=== PATIENT | male | born 1955 | race Caucasian/White ===

== ENCOUNTER 2016-03-18 01:12 | Inpatient (IN) | payer OTHER ==
[~2016-03-18] VITALS: Ht 168.9 cm; Wt 63.6 kg
[~2016-03-18 01:12] MED LIST: ASPI81TA25 PO; LOSA50TA6 PO; NAPR1TAB9 PO
[2016-03-18 01:46] LABS: HEMATOCRIT 40.4 % (42-52); MEAN CELL VOLUME 92.7 fL (80-100); MEAN CORPUSCULAR HEMOGLOBIN 34.4 pg (25-34); MEAN CORPUSCULAR HGB CONC 37.1 g/dl (32-36); MEAN PLATELET VOLUME 8.8 fL (7.4-10.4); PLATELET COUNT 203 K/uL (130-400); RED BLOOD COUNT 4.36 M/uL (4.7-6.1)
[2016-03-18 01:46] LABS: MANUAL MICROSCOPIC REQUIRED? NO; REVIEW REQ? NO; URINE APPEARANCE CLEAR (CLEAR); URINE BILIRUBIN NEG (NEG); URINE COLOR YELLOW; URINE NITRITE NEG (NEG); URINE PH 5.5 (4.5-7.5); UROBILINOGEN NEG (NEG)
[2016-03-18] MEDS ORDERED: HYDR12.55 PO (01:49)
[2016-03-18] MEDS ORDERED: PYRI100T4 PO (01:50)
--- NOTE | 2016-03-18 01:50 | EMERGENCY ROOM VISIT NOTE ---
History Report prepared by Elle: Huy Morales Under the Supervision of: Dr. Arlene Griggs D.O. First contact with patient: 01:17 Chief Complaint: MENTAL HEALTH EVALUATION Stated Complaint: 302 History of Present Illness The patient is a 60 year old male who presents to the Emergency Room with for an acute mental health evaluation over statements that he made earlier tonight. The patient has had 7-8 beers today. The patient's is concerned that he is going to hurt himself. The patient's intended to drive to [place] for a . The patient does not want her to go because he is concerned for her. He admits that it is causing him stress. The patient told his that he might not be there when she returns. He poured his bottle of Prozac into his hand and said that would be enough. He also said that he would be taking the Prozac for breakfast. The patient was brought into the ED by the police department. The patient admits that he drinks every night but does not acknowledge that he is an alcoholic. His believes that he is an alcoholic. The patient denies ever attempting suicide. The patient was admitted to [place] [facility] for mental health in June. His says that he has been more manipulative since he was discharged. The patient has never been to rehab. The patient does not drive intoxicated. He is a retired forester. The patient denies a history of diabetes or other health problems. Source of History: patient, spouse/significant other Onset: tonight Position: other (psyche) Quality: other (mental health evaluation) Timing: other (acute) Modifying Factors (Worsening): other ( intending to go to NH) Note: Patient denies suicidal ideations. Review of Systems See HPI for pertinent positives & negatives. A total of 10 systems reviewed and were otherwise negative. Past Medical & Surgical Medical Problems: (1) Chronic shoulder pain (2) Dizziness (3) Dizziness (4) Fall (5) Head injury (6) Hypertension (7) Laceration of forehead (8) Near syncope Family History Diabetes mellitus Social History Smoking Status: Current Every Day Smoker Alcohol Use: heavy Drug Use: none Marital Status: Housing Status: lives with significant other Occupation Status: disabled Current/Historical Medications Scheduled Aspirin (Aspir-Low), 81 MG PO DAILY Hydrochlorothiazide (Hydrochlorothiazide), 12.5 MG PO DAILY Losartan Potassium (Cozaar), 50 MG PO DAILY Naproxen (Aleve), 220 MG PO DAILY Pyridoxine (Vitamin B6), 100 MG PO DAILY Allergies Coded Allergies: No Known Allergies (Unverified , 07/04/15) Physical Exam Vital Signs Date Time Temp Pulse Resp B/P Pulse Ox O2 Delivery O2 Flow Rate FiO2 03/18/16 04:25 84 20 119/60 95 Room Air 03/18/16 02:26 89 16 152/90 97 Room Air 03/18/16 01:15 36.8 95 20 136/100 99 Room Air Physical Exam General: Pleasant, smells of alcohol. HEENT: Head - normocephalic and atraumatic Pupils are equal, round, and reactive to light. Extraocular eye muscles are intact, and sclera are anicteric. Nose - moist nasal mucosa without discharge. Mouth - moist buccal mucosa. Oropharynx is nonerythematous and there is no tonsillar exudate or edema noted. Neck: Supple; no JVD, nuchal rigidity, cervical lymphadenopathy, or auscultated bruits. Heart: Regular rate and rhythm. There is a normal S1 and S2 with no murmurs, clicks, or gallops appreciated. Lungs: Clear to auscultation bilaterally with no wheezes, rales, or rhonchi. Abdomen: Soft, completely nontender, nondistended, with good bowel sounds. There are no palpable pulsatile masses or hepatosplenomegaly. There is no guarding, rigidity, or rebound noted. Extremities: No evidence of cyanosis, clubbing, or edema. There are easily palpable peripheral pulses. Skin: warm and dry with good turgor and no rashes. Psych: Admits to making suicidal threats. Denied any homicidal ideation. Admits to depression. Medical Decision & Procedures Laboratory Results 03/18/16 01:30 03/18/16 01:30 Test 03/18/16 01:27 03/18/16 01:30 03/18/16 01:42 Urine Color YELLOW Urine Appearance CLEAR (CLEAR) Urine pH 5.5 (4.5-7.5) Urine Specific [place] 1.000 (1.000-1.030) Urine Protein NEG (NEG) Urine Glucose (UA) NEG (NEG) Urine Ketones NEG (NEG) Urine Occult Blood NEG (NEG) Urine Nitrite NEG (NEG) Urine Bilirubin NEG (NEG) Urine Urobilinogen NEG (NEG) Urine Leukocyte Esterase NEG (NEG) Red Blood Count 4.36 M/uL (4.7-6.1) Mean Corpuscular Volume 92.7 fL (80-100) Mean Corpuscular Hemoglobin 34.4 pg (25-34) Mean Corpuscular Hemoglobin Concent 37.1 g/dl (32-36) RDW Standard Deviation 49.7 fL (36.4-46.3) RDW Coefficient of Variation 14.6 % (11.5-14.5) Mean Platelet Volume 8.8 fL (7.4-10.4) Anion Gap 13.0 mmol/L (3-11) Est Creatinine Clear Calc Drug Dose 80.5 ml/min Estimated GFR () 108.2 Estimated GFR (Non- 93.4 BUN/Creatinine Ratio 13.8 (10-20) Calcium Level 8.2 mg/dl (8.5-10.1) Total Bilirubin 0.4 mg/dl (0.2-1) Direct Bilirubin 0.1 mg/dl (0-0.2) Aspartate Amino Transf (AST/SGOT) 26 U/L (15-37) Alanine Aminotransferase (ALT/SGPT) 20 U/L (12-78) Alkaline Phosphatase 51 U/L (45-117) Total Protein 7.5 gm/dl (6.4-8.2) Albumin 3.9 gm/dl (3.4-5.0) Thyroid Stimulating Hormone (TSH) 1.280 uIu/ml (0.300-4.500) Salicylates Level 6.2 mg/dl (2.8-20) Acetaminophen Level < 2 ug/ml (10-30) Ethyl Alcohol mg/dL 220.0 mg/dl (0-3) Urine Opiates Screen NEG (NEG) Urine Methadone, Qualitative NEG (NEG) Urine Barbiturates NEG (NEG) Urine Phencyclidine (PCP) Level NEG (NEG) Ur Amphetamine/Methamphetamine NEG (NEG) MDMA (Ecstasy) Screen NEG (NEG) Urine Benzodiazepines Screen NEG (NEG) Urine Cocaine Metabolite NEG (NEG) Urine Marijuana (THC) POS (NEG) Laboratory results per my review. ED Course 0125: Past medical records reviewed. The patient was evaluated in room A12b. A complete history and physical exam was performed. I discussed the case with the patient's who was petitioning a 302. Laboratory studies were drawn as above. The patient was moved to A8. 0350: The patient is sleeping at this time. 0510: The patient was sound asleep. 0630: The patient will be signed out to Dr. Akins at shift change. Medical Decision The patient is a 60 year old male who presents to the ED for a mental health evaluation. Differential diagnosis includes alcohol intoxication, suicidal ideation, suicidal gesture, mood disorder. Laboratory interpretation: Alcohol 220, urinalysis is clean, TSH normal, glucose 81, LFTs and renal function normal, no leukocytosis, stable H&H. Urine tox screen was positive for marijuana, salicylates 6.2, acetaminophen < 2. This is a 60-year-old male patient who presents to the emergency department after making suicidal threats. The patient is quite concerned for his safety as he made threats and gestures that he would kill himself by overdosing. He is currently intoxicated. He does admit to being an alcoholic and drinks every night. We are waiting for the patient to sober up so that he can be evaluated by psychiatry. He has never been to a rehabilitation facility for alcoholism. He declines wanting to do so at this time. Impression Primary Impression: Suicidal ideation Additional Impression: Alcohol intoxication Scribe Attestation The scribe's documentation has been prepared under my direction and personally reviewed by me in its entirety. I confirm that the note above accurately reflects all work, treatment, procedures, and medical decision making performed by me. Departure Information Dispostion Still a Patient Referrals No Doctor, Assigned (PCP) Patient Instructions A Signature Page, My [facility]
[2016-03-18 02:05] LABS: BUN/CREATININE RATIO 13.8 (10-20); CALCIUM 8.2 mg/dl (8.5-10.1); CREATININE 0.88 mg/dl (0.60-1.40); POTASSIUM 3.5 mmol/L (3.5-5.1)
[2016-03-18 02:16] LABS: THYROID STIMULATING HORMONE 1.28 uIu/ml (0.300-4.500)
[2016-03-18 02:34] LABS: ACETAMINOPHEN < 2 ug/ml (10-30)
[2016-03-18 02:51] LABS: BENZODIAZEPINE, URINE NEG (NEG); COCAINE,URINE NEG (NEG); PHENCYCLIDINE, URINE NEG (NEG)
[2016-03-18 09:24] VITALS: O2SAT 98
--- NOTE | 2016-03-18 09:42 | EMERGENCY ROOM VISIT NOTE ---
ED Visit Note 60-year-old male was signed off to me at change of shift from Dr. Griggs awaiting admission for mental health. The patient was evaluated by mental health and accepted for admission on 3 S.
[2016-03-18] MEDS ORDERED: SODIUM CHLORIDE 0.65% NA SOLN 45 ML (OCEAN) PRN (10:00)
[2016-03-18] MEDS ORDERED: hydrOXYzine HCL 25 MG TAB PO PRN ×2 (10:00)
[2016-03-18] MEDS ORDERED: ALUMINUM/MAGNESIUM SUSP 30 ML UDC PO PRN (10:00)
[2016-03-18] MEDS ORDERED: MAGNESIUM HYDROXIDE SUSP 30 ML UDC PO PRN (10:00)
[2016-03-18] MEDS ORDERED: BISMUTH SUBSALICYLATE PER ML OMNICELL CHARGE PO PRN (10:00)
[2016-03-18] MEDS ORDERED: ACETAMINOPHEN 325 MG TAB PO PRN (10:00)
[2016-03-18 10:06] VITALS: BP 146/88; PULSE 90; TEMP 36.8; Ht 168.9 cm; Wt 63.6 kg
[2016-03-18] MEDS ORDERED: HYDROCHLOROTHIAZIDE 25 MG TAB PO ONE (13:30)
[2016-03-18] MEDS ORDERED: LORAZEPAM 1 MG TAB PO PRN (13:30)
[2016-03-18] MEDS ORDERED: LOSARTAN POTASSIUM 50 MG TAB PO ONE (13:30)
[2016-03-18] MEDS: THIAMINE HCL 100 MG TAB PO SCH (14:21)
--- NOTE | 2016-03-18 14:48 | HISTORY & PHYSICAL EXAMINATION ---
DATE OF ADMISSION: 03/18/2016 IDENTIFYING INFORMATION: This is a 60-year-old gentleman with a history of psychiatric admission last June for depression with suicidal ideation who presents through the [facility] ER where he was assessed by Dr. Akins and Dr. Griggs following suicidal threats to . History obtained from patient on interview and medical records available in chart. CHIEF COMPLAINT: "Sometimes I just feel like I do not want to be around anymore. It is like I lose the will to live". HISTORY OF PRESENT ILLNESS: Per ER note from last evening, the patient presented to the ER following statements that he made to earlier in the day. expressed concern that he was going to hurt himself. Reportedly, she had intended to drive to [place] for a and the patient did not want her to go and he told his that he might not be there when he returns and said something to the effect that if he took his Prozac in an overdose that would be enough to kill him. He said that he would be taking Prozac for breakfast provocatively. He was brought into the ED by police. He admitted to drinking every night but did not identify himself as an alcoholic. reportedly believes he is an alcoholic. He denies ever making a suicide attempt in the past. Noted that he had been to [facility] last June for similar circumstances. reported that he seemed more manipulative in his behaviors since discharge from there, never been to rehab. On interview this morning, the patient reports that his primary stressor is his and he hoarding behavior. He sounds to be quite stressed by their home situation, stating that she has things piled everywhere including 2 large storage units that she does not perceive that he has a problem. He states that they were encouraged to participate in couples counseling following his mental health admission last June but it was of little benefit. He believes he needs to get out of that relationship to feel better. 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 He admits to losing his temper and yelling at the workmen from [employer] who eventually refused to return to his home but otherwise denies problematic anger, reactivity, or impulsive behaviors. He reports he last felt well about 2 years ago and believes that his mood has been steadily declining since. He describes sleep latency secondary to worry and stress and believes that he drinks primarily to fall asleep and also to get out of the house and away from his . He describes low interest and low ability to enjoy things that were historically enjoyable to him. His mood has been chronically low with episodic acute lows including some hopelessness and loss of desire to live. "Sometimes I feel like if I would just go to sleep and not wake up, it would be okay with me." He does report that this typically is fleeting and he will feel a little better by the next day. He denies that he has entertained specific suicidal thoughts and denies a specific plan to harm himself and reports that his provocative statements regarding the Prozac at time of presentation wee most likely in an effort to get his 's attention and manipulate her plans and behavior. He denies that he ever intended to take the Prozac and overdose. He denies self-injurious behaviors. He denies homicidal ideation. He denies crying spells. His appetite has been low and he reports approximately 5 pound weight loss in last 6 months. He denies symptoms consistent with hypomania or tony. He denies psychosis. He denies free floating anxiety or excessive worry at baseline apart from what he experiences related to situational stressors previously noted. He denies panic attacks. He denies progressive memory problems. He does report drinking 8-12 beers daily, but does not perceive that this is a problem and states that he cut down from 18 beers daily at some point in the past and feels happy about this. He states that he is not interested in substance abuse treatment and does not perceive that he has a problem. Notably, he reports dysphagia when taking Prozac last spring which seemed to improve within several days of discontinuing the Prozac; however, he is interested in retrying an alternative antidepressant. PAST PSYCHIATRIC HISTORY: The patient has 1 prior psychiatric hospitalization in June 2015 for about 2-1/2 days that appears to have been a voluntary admission at [facility]. He was started on Prozac which he took for a few months but felt that gave him swallowing problems such as swallowing meat and upper GI and esophageal dilatation did not improve that but the symptoms did improve a few days after discontinuing the Prozac. He denies any other psychotropic treatment history including benzodiazepines, sleep aids, anxiolytics, antipsychotics. He participated in psychotherapy x3 in [place] at the [email or web address] but did not feel like he was any benefit and discontinued. He denies a history of suicidal attempts or self-injurious behaviors in the past 6 months or otherwise. He denies a history of violence to anyone else in the past 6 months or otherwise. PAST MEDICAL HISTORY: Dr. Caro is his PCP. He describes a history of shoulder injury status post fall approximately 18 years ago to the left shoulder with displacement of clavicle, multiple subsequent surgeries on left shoulder including rotator cuff repair resulting in chronic left shoulder pain, carotid stenosis, and hypertension also reported. He denies a personal history of seizure, stroke, head injury, central nervous system infection, hyperlipidemia, obesity, diabetes, or cardiovascular disease apart from the carotid artery stenosis. CURRENT MEDICATIONS: Aspirin 81 mg daily, hydrochlorothiazide 12.5 mg daily, losartan 50 mg daily, naproxen 220 mg daily, Vitamin B6 100 mg daily. ALLERGIES: No known drug allergies. SUBSTANCE ABUSE HISTORY: The patient reports longstanding smoking history. He used to smoke 1-2 packs of cigarettes per day but quit that and began smoking about 1 pack per day of mini cigars about 8 months ago. He does not drink caffeinated beverages. He describes long history of alcohol use, drinking 8-12 beers on average longstanding. He denies a history of withdrawal. No pertinent abstinence in recent history. He denies associated legal or social difficulties. 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 He denies feeling guilty. He does not perceive that his alcohol use is a problem and is disinterested in any substance abuse treatment presently. He refutes need to further reduce his alcohol use. SOCIAL HISTORY: The patient is from [place], [place]. He was the fourth of 6 children. He felt denied privileges as a child secondary to family, financial strain but otherwise had good relationships with his parents. 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 Denies history. He does have a history of arrest in 1991 for DUI, which he initially denied when doing alcohol use history. Also, reports history of arrest for small marijuana possession. He has been 4 times, all ending in divorce apart from his most recent marriage of 4.5 years. First marriage lasted about 20 years, second 10 years, third less than 1 year. He has 2 children and reports good relationship with both son and daughter who live locally. He currently lives in a private home on [place], [place] with his . Denies amish affiliation. Denies psychological trauma history or abuse history. FAMILY HISTORY: Diffusely negative per patient report. He denies any awareness of current medical problems in his family including obesity, hypertension, diabetes, dyslipidemia, seizure or cardiovascular disease. He denies a mental health family history or family history of suicide. He does report that some people drink in his family, but denies that anybody has had trouble with alcoholism or needed to go to rehabilitation. REVIEW OF SYSTEMS: Notable for sleep latency and weight loss. Otherwise, 10-point review of systems negative except as per HPI apart from chronic left shoulder pain. PHYSICAL EXAMINATION: VITAL SIGNS: Temperature 36.8, pulse 90, blood pressure 146/88, respirations 18. Physical exam reviewed from ER 03/18/2016 assessment and felt appropriate for admission to the behavioral health unit. LABORATORIES AND STUDIES: CBC today showed normal WBC, RBCs a little low at 4.36, hemoglobin normal at 15, hematocrit slightly low at 40.4, platelets 203 and normal. Metabolic panel notable for sodium a little low at 130, potassium okay at 3.5, BUN 12, creatinine 0.88, EGFR within normal limits. Calcium was a little low at 8.2. AST normal at 26, ALT 20, alkaline phosphatase 51, albumin normal at 3.9. TSH normal at 1.28. I see a normal vitamin B12 level from 2015 of 559 in his record. Toxicology panel on admission positive for marijuana. He had a blood alcohol level of 220 at 0130 this morning. Urinalysis was negative. MENTAL STATUS EXAMINATION: The patient is a very casually groomed gentleman with a long blas scraggly laughlin and long blas hair pulled back. He is wearing a hospital gown as a shirt and jeans. Makes good eye contact. Motor activity appears slightly excessive frequently repositioning himself in the chair and demonstrates a very mild postural tremor in upper extremities outstretched. His speech is slightly over productive, but not necessarily pressured, adequately articulated. Use of language is appropriate for level of education. Thought process is slightly circumstantial, but he is redirectable to topic. He is logical in his responses. Thought content notable for thoughts of not wanting to be alive episodically and some suicidal fantasy but he denies that he has active suicidal intention and has no specific plan to harm himself; however, he did indicate to his this morning that he could take his Prozac in a self-harm attempt. No evidence of response to internal stimuli. Gait is stable without assistance. He describes his mood as depressed and stressed and his affect appears mildly to moderately irritable, somewhat anxious, and dysphoric. Insight appears fair. Judgment and impulse control presently limited. Memory appears grossly intact in all spheres. Orientation grossly intact conversationally. RISK ASSESSMENT: This patient does report that he has access to guns at home. He has a history of depression and suicidal ideation. He is white. He has a history of divorce. He is abusing alcohol. He is expressing suicidal ideation recently. Protectively, he is willing to pursue care and willing to comply with medications. Strengths include optimism about response to treatment and goal oriented. Needs include provision for safety, pharmacologic intervention, and insight facilitation. ASSESSMENT: A 60-year-old gentleman who sounds to have a long history of alcohol abuse with worsening mood symptoms over the course of the past 2 years; primary stressor discord between he and with his particular complaint of her hoarding behavior admixed with financial strain. In recent history it sounds that his coping abilities have been overwhelmed to the point of passive wish with some suicidal fantasy and threats. While the patient denies active suicidal ideation or intention at the time of his presentation, he does appear to have been behaviorally disinhibited and is in a high risk group regarding substance abuse, history of depression, age, gender, race, limited supports. He would benefit from a period of monitoring, pharmacologic intervention, counseling, and support. DIAGNOSIS: Major depressive disorder, recurrent, severe, without psychosis, provisional; rule out substance induced mood disorder; alcohol use disorder. PLAN: The patient will be admitted on a voluntary status. He will be maintained on suicide checks. He will be encouraged to participate in unit programming. We will facilitate aftercare with therapist and mental health practitioner as appropriate prior to discharge. We will monitor for alcohol withdrawal and treat with fatuma protocol pending need. Discussed pharmacologic interventions for depression, insomnia, anxiety. Will start Remeron 30 mg p.o. at bedtime tonight and monitor. Will continue home medications for hypertension and pain control. Recommended substance abuse treatment but so far the patient declining for alcohol use disorder. Will work to secure guns in home prior to discharge. [id number] MTDD
[2016-03-18] MEDS: MIRTAZAPINE TAB 15 MG TAB PO SCH (21:06)
[2016-03-19 06:58] VITALS: BP_SYST 130; BP_SYST 137; BP_DIAS 82; BP_DIAS 87; PULSE 81; PULSE 82; TEMP 36.5
[2016-03-19 07:24] LABS: BUN/CREATININE RATIO 22.7 (10-20); CREATININE 0.74 mg/dl (0.60-1.40); POTASSIUM 3.6 mmol/L (3.5-5.1)
[2016-03-19] MEDS ORDERED: LOSARTAN POTASSIUM 50 MG TAB PO SCH (09:00)
[2016-03-19] MEDS: ASPIRIN 81 MG ECTAB PO SCH (09:16)
[2016-03-19] MEDS: NAPROXEN 250 MG TAB PO SCH (09:17)
[2016-03-19] MEDS: HYDROCHLOROTHIAZIDE 25 MG TAB PO SCH (09:17)
[2016-03-19] MEDS: PYRIDOXINE HCL 50 MG TAB PO SCH (09:17)
[2016-03-19] MEDS: THIAMINE HCL 100 MG TAB PO SCH (09:17)
[2016-03-19 09:22] VITALS: BP 159/107; PULSE 96; TEMP 36.9
[2016-03-19 12:23] VITALS: BP 199/112; PULSE 65; TEMP 36.8
[2016-03-19] MEDS ORDERED: CHLORDIAZEPOXIDE 25 MG CAP PO ONE (12:45)
[2016-03-19 13:37] VITALS: BP 174/94; PULSE 76
[2016-03-19] MEDS ORDERED: LOSARTAN POTASSIUM 50 MG TAB PO ONE (14:00)
--- NOTE | 2016-03-19 15:40 | Psychiatric Progress Notes ---
Progress Note Date of Service Mar 19, 2016. Chief Complaint "This is about the best I've felt in a long time". Subjective Patient was seen & assessed interval progress reviewed with Treatment Team. Pt is participating in some groups and compliant with medications. Received first dose of remeron last night. Scored 1/0/3 on AWSS assessments and not appearing in active withdrawal at time of initial assessment. However, following face to face assessment, I was alter informed of significant BP elevation and ordered Librium 50mg x1 and increased antihypertensive. Repeat BP reduced and being checked qid. On interview, pt reports feeling very well today. Describes dramatic benefit on remeron for sleep. Best night's sleep in a long time. Denies SE this am. Reports significant improvement in mood and now reporting a good mood and hopefulness that he can make relationship work. Admits statement about pills was a manipulation in effort to prevent from traveling. Denies SI or PDW presently. Reviewed need to reduce etoh use. He now agrees that he should make efforts to do so. He denies feelign anxious, shaky, or hallucinations. Review of Systems Constitutional: No sweats Cardiovascular: No chest pain Neurologic: + problem reported (denies confusion, tremor) Psychiatric: No insomnia Sleep Information Total Hours of Sleep: 6.00 Meal Information Percent of Breakfast Consumed: 100 Percent of Lunch Consumed: 100 Percent of Dinner Consumed: 75 Mental Status Exam During interview pt is: alert and oriented, cooperative Appearance: appropriately dressed Eye contact is: good Motor behavior is: steady gait & station, other (only a very mild perphipheral postural tremor is noted) Speech: normal in rate, rhythm & volume Affect: mood congruent, euthymic Mood is: other (good) Thought process: goal directed Thought content: reality based without delusions Suicidal thought are: denied Homicidal thoughts are: denied Hallucinations: denies auditory, denies visual Cognition: memory grossly intact Insight: other (improving) Judgement: limited Impression ASSESSMENT: A 60-year-old gentleman who sounds to have a long history of alcohol abuse with worsening mood symptoms over the course of the past 2 years primary stressor discord between he and with his particular complaint of her hoarding behavior admixed with financial strain. In recent history it sounds that his coping abilities have been overwhelmed to the point of passive wish with some suicidal fantasy and threats. While the patient denies active suicidal ideation or intention at the time of his presentation, he does appear to have been behaviorally disinhibited and is in a high risk group regarding substance abuse, history of depression, age, gender, race, limited supports. He would benefit from a period of monitoring, pharmacologic intervention, counseling, and support. DIAGNOSIS: Major depressive disorder, recurrent, severe, without psychosis, provisional; rule out substance induced mood disorder; alcohol use disorder. Plan (1) Depression 03/18: - The patient will be admitted on a voluntary status. He will be maintained on suicide checks. He will be encouraged to participate in unit programming. We will facilitate aftercare with therapist and mental health practitioner as appropriate prior to discharge. Discussed pharmacologic interventions for depression, insomnia, anxiety. Will start Remeron 30 mg p.o. at bedtime tonight and monitor. Will continue home medications for hypertension and pain control. 03/19 - SI resolved. tolerating remeron well with improved sleep. - needs aftercare (2) Alcohol abuse 03/18 - We will monitor for alcohol withdrawal w/ sx triggered AWSS 03/19 - hypertensive today, likely 2/2 etoh w/d (was not triggering AWSS ativan prn.) given librium 50mg now dose. will write for 25mg bid to be d/c'd prior to discharge. - remains resistant to any formalized sub abuse tx (3) Hypertension 03/18 - continue home meds 03/19 - increase losartan to 50mg bid tomorrow with now dose of 50mg Discharge / Aftercare Planning Psychiatrist: Name: none Manager Social Work: Name: none Visit Code E&M Code: 07402 Data Vital Signs Last 24 Hrs: Date Time Temp Pulse Resp B/P Pulse Ox O2 Delivery O2 Flow Rate FiO2 03/19/16 13:37 76 174/94 03/19/16 12:23 36.8 65 18 199/112 03/19/16 09:22 36.9 96 16 159/107 03/19/16 06:58 36.5 82 16 130/82 81 137/87 Meds Administered Last 24 Hrs: Meds Administered (Past 24Hrs) Medications (Trade) Dose Ordered Sig/Lida Route Start Time Stop Time Status Last Admin Dose Admin Aspirin (Ecotrin Tab) 81 mg DAILY PO 03/19/16 09:00 04/18/16 08:59 03/19/16 09:16 81 MG Losartan Potassium (coZAAR TAB) 50 mg DAILY PO 03/19/16 09:00 03/20/16 08:59 03/19/16 09:16 50 MG Pyridoxine HCl (Vitamin B-6 Tab) 100 mg DAILY PO 03/19/16 09:00 04/18/16 08:59 03/19/16 09:17 100 MG Hydrochlorothiazide (Hydrochlorothiazide Tab) 12.5 mg DAILY PO 03/19/16 09:00 04/18/16 08:59 03/19/16 09:17 12.5 MG Naproxen (Naprosyn Tab) 250 mg DAILY PO 03/19/16 09:00 04/18/16 08:59 03/19/16 09:17 250 MG Losartan Potassium (coZAAR TAB) 50 mg NOW ONCE PO 03/18/16 13:30 03/18/16 13:31 DC 03/18/16 14:22 50 MG Hydrochlorothiazide (Hydrochlorothiazide Tab) 12.5 mg NOW ONCE PO 03/18/16 13:30 03/18/16 13:31 DC 03/18/16 14:23 12.5 MG Thiamine HCl (Vitamin B-1 Tab) 100 mg QAM PO 03/18/16 13:29 04/17/16 13:28 03/19/16 09:17 100 MG Mirtazapine (Remeron Tab) 30 mg HS PO 03/18/16 22:00 04/17/16 21:59 03/18/16 21:06 30 MG Chlordiazepoxide (Librium Cap) 50 mg NOW ONCE PO 03/19/16 12:45 03/19/16 12:46 DC 03/19/16 12:42 50 MG Losartan Potassium (coZAAR TAB) 50 mg NOW ONCE PO 03/19/16 14:00 03/19/16 14:01 DC 03/19/16 13:38 50 MG Lab Results Last 24 Hrs: Last 24 Hours Test 03/19/16 06:10 Sodium Level 141 mmol/L Potassium Level 3.6 mmol/L Chloride Level 106 mmol/L Carbon Dioxide Level 26 mmol/L Anion Gap 9.0 mmol/L Blood Urea Nitrogen 17 mg/dl Creatinine 0.74 mg/dl Est Creatinine Clear Calc Drug Dose 95.5 ml/min Estimated GFR () 116.2 Estimated GFR (Non- 100.3 BUN/Creatinine Ratio 22.7 Random Glucose 81 mg/dl Calcium Level 9.0 mg/dl
[2016-03-19] MEDS: CHLORDIAZEPOXIDE 25 MG CAP PO SCH (21:58)
[2016-03-19] MEDS: MIRTAZAPINE TAB 15 MG TAB PO SCH (21:59)
[2016-03-20 07:00] VITALS: BP_SYST 119; BP_SYST 128; BP_DIAS 73; BP_DIAS 89; PULSE 71; PULSE 81; TEMP 36.6
[2016-03-20] MEDS: LOSARTAN POTASSIUM 50 MG TAB PO SCH ×2 (08:40→21:20)
[2016-03-20 08:41] VITALS: BP 128/77; PULSE 67
[2016-03-20] MEDS: ASPIRIN 81 MG ECTAB PO SCH (08:41)
[2016-03-20] MEDS: HYDROCHLOROTHIAZIDE 25 MG TAB PO SCH (08:42)
[2016-03-20] MEDS: CHLORDIAZEPOXIDE 25 MG CAP PO SCH (08:42)
[2016-03-20] MEDS: NAPROXEN 250 MG TAB PO SCH (08:47)
[2016-03-20] MEDS: PYRIDOXINE HCL 50 MG TAB PO SCH (08:48)
[2016-03-20] MEDS: THIAMINE HCL 100 MG TAB PO SCH (08:48)
--- NOTE | 2016-03-20 12:19 | Psychiatric Progress Notes ---
Progress Note Date of Service Mar 20, 2016. Interval History 60 y/o MWM from [place] who has a history of depression and alcoholism and presented after making suicidal statements to his , who completed a 302 petition, although he signed in voluntarily. He has been started on Remeron, and is denying SI here, saying his misunderstood him. Chief Complaint "Good, just didn't feel like I had enough sleep last night". Subjective Patient was seen & assessed interval progress reviewed with Treatment Team. Staff report he has had high BP, and is getting scheduled Librium for alcohol withdrawal, but has not scored high enough on the AWSS protocol to get prn Ativan. He was awoken from sleep around 11:00am, saying he meant to lie down for 5 minutes but instead fell asleep. He minimizes the events that led to admission, saying his is to blame, as she was going to drive to [place] and he didn't think that was safe as it is winter and the weather might get bad. He says he told her she was stressing him out and he should take "1 or 2" Prozac to help him with the stress, and that she misunderstood it and thought he was threatening to overdose. He denies that he was suicidal or that he's ever been suicidal, then says he was suicidal when he was [place] [facility] [place]. He says he never followed up after that admission, and that he was referred for therapy but didn't think it worked because he thought the therapist was "supposed to do something about my 's hoarding, that's what it was for." He says that his only problem is his , that her hoarding stresses him out, and because of that he needs to go out drinking with his friends every night, "I need my downtime." He drinks up to 15 beers a night and does not think this is a problem, saying he's been doing it for 10 years and he' s fine. He says "that's my lifestyle, that's how I socialize," and is not interested in changing or cutting back. He admits to some stress due to " friends committing suicide in the last 6 months," but says his primary concern is his , and is hoping to address this in his meeting with her today. Sleep Information Total Hours of Sleep: 6.50 Meal Information Percent of Breakfast Consumed: 100 Percent of Lunch Consumed: 100 Percent of Dinner Consumed: 100 Mental Status Exam During interview pt is: alert and oriented, cooperative Appearance: appropriately dressed, disheveled (Appears older than stated age, malodorous, unkempt, long blas hair in ponytail and long laughlin) Eye contact is: good Motor behavior is: no abnormal motor movements Speech: normal in rate, rhythm & volume Affect: irritable Mood is: other ("good") Thought process: goal directed Thought content: reality based without delusions Suicidal thought are: denied Homicidal thoughts are: denied Hallucinations: denies auditory, denies visual Cognition: memory grossly intact Insight: other Judgement: limited Medication Trials (1) Past Psych Meds Prozac - took for a few months, swallowing problems Last Edited By: Alicia Leon on Mar 20, 2016 12:11 Impression ASSESSMENT: A 60-year-old gentleman with a long history of alcohol abuse and worsening mood symptoms over the course of the past 2 years primary stressor discord between he and with his particular complaint of her hoarding behavior and financial strain. In recent history it sounds that his coping abilities have been overwhelmed to the point of passive wish with some suicidal fantasy and threats. While the patient denies active suicidal ideation or intention at the time of his presentation, he does appear to have been behaviorally disinhibited and is in a high risk group regarding substance abuse, history of depression, age, gender, race, limited supports, poor insight. He would benefit from a period of monitoring, pharmacologic intervention, counseling, and support. DIAGNOSIS: Major depressive disorder, recurrent, severe, without psychosis, provisional Rule out substance induced mood disorder Alcohol use disorder Alcohol withdrawal Plan (1) Depression 03/18: - The patient will be admitted on a voluntary status. He will be maintained on suicide checks. He will be encouraged to participate in unit programming. We will facilitate aftercare with therapist and mental health practitioner as appropriate prior to discharge. Discussed pharmacologic interventions for depression, insomnia, anxiety. Will start Remeron 30 mg p.o. at bedtime tonight and monitor. Will continue home medications for hypertension and pain control. 03/19 - SI resolved. tolerating remeron well with improved sleep. - needs aftercare 03/20 - consistently denying SI here, saying misunderstood his statements about taking pills - Family meeting with today - Work on safety plan and review with (2) Alcohol abuse 03/18 - We will monitor for alcohol withdrawal w/ sx triggered AWSS 03/19 - hypertensive today, likely 2/2 etoh w/d (was not triggering AWSS ativan prn.) given librium 50mg now dose. will write for 25mg bid to be d/c'd prior to discharge. - remains resistant to any formalized sub abuse tx 03/20 - Continue Librium taper for alcohol withdrawal and monitoring per AWSS. - Reviewed risks of continued alcohol use, including worsening mood, anxiety , health problems, addiction, etc, but patient in denial about alcoholism, does not wish to change behavior, and blames stressful relationship with for his drinking. - Recommend outpatient substance abuse treatment (3) Hypertension 03/18 - continue home meds 03/19 - increase losartan to 50mg bid tomorrow with now dose of 50mg 03/20 - will need f/u with PCP for HTN Discharge / Aftercare Planning Primary Care Physician: Name: Dr Goins Psychiatrist: Name: none Parole Agent: Name: none Visit Code E&M Code: 63483 Data Vital Signs Last 24 Hrs: Date Time Temp Pulse Resp B/P Pulse Ox O2 Delivery O2 Flow Rate FiO2 03/20/16 08:41 67 16 128/77 03/20/16 07:00 36.6 71 16 128/89 81 119/73 03/19/16 13:37 76 174/94 03/19/16 12:23 36.8 65 18 199/112 Meds Administered Last 24 Hrs: Meds Administered (Past 24Hrs) Medications (Trade) Dose Ordered Sig/Lida Route Start Time Stop Time Status Last Admin Dose Admin Aspirin (Ecotrin Tab) 81 mg DAILY PO 03/19/16 09:00 04/18/16 08:59 03/20/16 08:41 81 MG Losartan Potassium (coZAAR TAB) 50 mg DAILY PO 03/19/16 09:00 03/20/16 08:59 DC 03/19/16 09:16 50 MG Pyridoxine HCl (Vitamin B-6 Tab) 100 mg DAILY PO 03/19/16 09:00 04/18/16 08:59 03/20/16 08:48 100 MG Hydrochlorothiazide (Hydrochlorothiazide Tab) 12.5 mg DAILY PO 03/19/16 09:00 04/18/16 08:59 03/20/16 08:42 12.5 MG Naproxen (Naprosyn Tab) 250 mg DAILY PO 03/19/16 09:00 04/18/16 08:59 03/20/16 08:47 250 MG Losartan Potassium (coZAAR TAB) 50 mg NOW ONCE PO 03/18/16 13:30 03/18/16 13:31 DC 03/18/16 14:22 50 MG Hydrochlorothiazide (Hydrochlorothiazide Tab) 12.5 mg NOW ONCE PO 03/18/16 13:30 03/18/16 13:31 DC 03/18/16 14:23 12.5 MG Thiamine HCl (Vitamin B-1 Tab) 100 mg QAM PO 03/18/16 13:29 04/17/16 13:28 03/20/16 08:48 100 MG Mirtazapine (Remeron Tab) 30 mg HS PO 03/18/16 22:00 04/17/16 21:59 03/19/16 21:59 30 MG Chlordiazepoxide (Librium Cap) 50 mg NOW ONCE PO 03/19/16 12:45 03/19/16 12:46 DC 03/19/16 12:42 50 MG Losartan Potassium (coZAAR TAB) 50 mg BID PO 03/20/16 09:00 04/19/16 08:59 03/20/16 08:40 50 MG Losartan Potassium (coZAAR TAB) 50 mg NOW ONCE PO 03/19/16 14:00 03/19/16 14:01 DC 03/19/16 13:38 50 MG Chlordiazepoxide (Librium Cap) 25 mg BID PO 03/19/16 22:00 04/18/16 21:59 03/20/16 08:42 25 MG
[2016-03-20 13:51] VITALS: BP 115/80; PULSE 71; TEMP 36.6
[2016-03-20] MEDS: MIRTAZAPINE TAB 15 MG TAB PO SCH (21:20)
[2016-03-20] MEDS ORDERED: CHLORDIAZEPOXIDE 25 MG CAP PO SCH (22:00)
[2016-03-21 06:52] VITALS: BP_SYST 102; BP_SYST 112; BP_DIAS 70; BP_DIAS 76; PULSE 64; PULSE 76; TEMP 36.5
[2016-03-21] MEDS: LOSARTAN POTASSIUM 50 MG TAB PO SCH (08:50)
[2016-03-21] MEDS: ASPIRIN 81 MG ECTAB PO SCH (08:50)
[2016-03-21] MEDS: HYDROCHLOROTHIAZIDE 25 MG TAB PO SCH (08:50)
[2016-03-21] MEDS: PYRIDOXINE HCL 50 MG TAB PO SCH (08:51)
[2016-03-21] MEDS: NAPROXEN 250 MG TAB PO SCH (08:51)
[2016-03-21] MEDS: THIAMINE HCL 100 MG TAB PO SCH (08:51)
[2016-03-21] MEDS ORDERED: LOSA50TA6 PO (10:51)
[2016-03-21] MEDS ORDERED: RMR15 PO (10:51)
--- NOTE | 2016-03-21 11:03 | Discharge Instructions ---
Discharge Information Report Includes Report will include the: Discharge Instructions & Summary Admission Admission Date / Time: Mar 18, 2016 at 09:19 Reason for Admission: Depression,Nos Discharge Discharge Diagnosis / Problem: Depression and alcohol abuse Condition at Discharge: Good Discharge Goals Goal(s): Decrease discomfort, Improve disease control, Prevent Disease Progression Activity Recommendations Activity Limitations: resume your previous activity . Instructions / Follow-Up Instructions / Follow-Up . SPECIAL CARE INSTRUCTIONS: 1. Follow through with your scheduled aftercare appointments. If unable to keep an appointment, please call to reschedule. 2. Take your medication only as prescribed. Medication should not be changed or stopped without the approval of your doctor. In the event of worsening symptoms or concerns about side effects, contact your doctor immediately. 3. Utilize new healthy coping skills, anger management skills, and stress management skills learned during your hospitalization. Journal feelings and process them with a support person. Identify stressors or situations that may result in relapse, deterioration or inappropriate behaviors and develop a plan to deal with those issues. 4. If your coping skills are ineffective and you are in crisis, contact your outpatient providers for direction. If unable to reach your providers, please call the CAN HELP LINE AT or go to the closest Emergency Room. 5. Avoid alcohol and un-prescribed drugs. 6. You have been provided with the Mental Health Advance Directives Pamphlet for your review. AFTERCARE APPOINTMENTS: * Please call your insurance company prior to your scheduled appointment to confirm your aftercare providers are covered. Take your insurance information to your appointments. . Discharge / Aftercare Planning Primary Care Physician: Name: Dr Goins Date of Appointment: Apr 18, 2016 Time of Appointment: 3:50pm Psychiatrist: Name: [facility] Date of Appointment: Apr 05, 2016 Time of Appointment: 1:15pm Appointment Notes: Session will be 1 hour long.Bring your medical insurance card and med list Mechanical Design Engineer Facilities: Name: none . Follow-Up Care Plan for Follow-Up Care: The patient will have prompt follow up with [facility] for psychiatric care and his PCP for medical follow up Current Hospital Diet Patient's current hospital diet: Regular Diet Discharge Diet Recommended Diet: Regular Diet Procedures Procedures Performed: No Pending Studies Pending Studies at Discharge: No Medical Emergencies . Who to Call and When: Medical Emergencies: For questions or emergencies related to your hospital stay, please contact the Inpatient Behavioral Health Unit at [phone]. A tobacco packing machine operator is on-call 02/10 for the Behavioral Health Unit for emergencies At any time you feel your situation is an emergency, you may also call 911 immediately. . Non-Emergent Contact Non-Emergency issues call your: Primary Care Provider Advance Directives Existing Advance Directive: No Do You Have an Existing Mental: No Existing Living Will: No Existing Power of Wire Drawing Machine Operator: No Discharge Summary Admission HPI Per the Admitting provider: Please see attached H&P Hospital Course (1) Depression 03/18: - The patient will be admitted on a voluntary status. He will be maintained on suicide checks. He will be encouraged to participate in unit programming. We will facilitate aftercare with therapist and mental health practitioner as appropriate prior to discharge. Discussed pharmacologic interventions for depression, insomnia, anxiety. Will start Remeron 30 mg p.o. at bedtime tonight and monitor. Will continue home medications for hypertension and pain control. 03/19 - SI resolved. tolerating remeron well with improved sleep. - needs aftercare 03/20 - consistently denying SI here, saying misunderstood his statements about taking pills - Family meeting with today - Work on safety plan and review with (2) Alcohol abuse 03/18 - We will monitor for alcohol withdrawal w/ sx triggered AWSS 03/19 - hypertensive today, likely 2/2 etoh w/d (was not triggering AWSS ativan prn.) given librium 50mg now dose. will write for 25mg bid to be d/c'd prior to discharge. - remains resistant to any formalized sub abuse tx 03/20 - Continue Librium taper for alcohol withdrawal and monitoring per AWSS. - Reviewed risks of continued alcohol use, including worsening mood, anxiety , health problems, addiction, etc, but patient in denial about alcoholism, does not wish to change behavior, and blames stressful relationship with for his drinking. - Recommend outpatient substance abuse treatment (3) Hypertension 03/18 - continue home meds 03/19 - increase losartan to 50mg bid tomorrow with now dose of 50mg 03/20 - will need f/u with PCP for HTN Risk Factors Assessment Male: Yes : Yes /single/: No Higher / Fall in social status: No Access to guns: Yes Health problems: Yes Mental Health Diagnoses: Yes Substance use disorders: Yes Hopelessness: No Smoker: Yes Protective Factors Assessment Congregational beliefs: No : Yes Responsible for young children: No Employed: No Stable relationships: No Day of Discharge Assessment COURSE OF HOSPITALIZATION: During the patient's 3 day stay, he was stabilized on Remeron 15 mg at bedtime. Cozaar was increased to 50 mg twice a day for hypertension. The patient was admitted to the hospital after making statements of suicide with his was going to a in [place]. After admission he denied active suicidal ideation and said that he only made those statements to manipulate her. Family meeting was held with his yesterday during which she seemed quite angry and controlling. He wants to externalize blame for his behaviors on his whom he describes as a hoarder. He showed pictures on his phone to the social science manager of the house and in the social science manager 's estimation, it did not seem like hoarding but clutter and accumulation of belongings. He was not interested in hearing anything about changing himself and wanted only to hear about his changing her hoarding behaviors. He was also resistant aftercare but ultimately did agree to see someone at [facility] and to continue with his primary care physician. Again he denied suicidality throughout his stay. There are guns in the home that we have recommended be secured or removed from the home. He is willing to give his keys to the gun safe to his . The will be contacted specifically about recommendations to remove the guns from the home. DAY OF DISCHARGE ASSESSMENT: Today the patient says his mood is good. He felt that the family meeting yesterday was productive and felt assured that his would be working toward removing some clutter from the home. He continues to deny suicidal ideation, agrees to give up the keys to the gun safe. Today he is casually and appropriately dressed and groomed. Gait and station are within normal limits. Eye contact is good. Speech is of normal rate volume and tone, he is somewhat hard of hearing. Affect is restricted. Thoughts are organized and goal directed, and without evidence of thought disorder. Recent and remote memory are intact per conversation. Intelligence is estimated to be average. Insight and judgment are improved over admission. Laboratory 03/18/16 01:30 03/19/16 06:10 Test 03/18/16 01:27 03/18/16 01:30 03/18/16 01:42 03/19/16 06:10 Urine Color YELLOW Urine Appearance CLEAR (CLEAR) Urine pH 5.5 (4.5-7.5) Urine Specific [place] 1.000 (1.000-1.030) Urine Protein NEG (NEG) Urine Glucose (UA) NEG (NEG) Urine Ketones NEG (NEG) Urine Occult Blood NEG (NEG) Urine Nitrite NEG (NEG) Urine Bilirubin NEG (NEG) Urine Urobilinogen NEG (NEG) Urine Leukocyte Esterase NEG (NEG) Red Blood Count 4.36 M/uL (4.7-6.1) Mean Corpuscular Volume 92.7 fL (80-100) Mean Corpuscular Hemoglobin 34.4 pg (25-34) Mean Corpuscular Hemoglobin Concent 37.1 g/dl (32-36) RDW Standard Deviation 49.7 fL (36.4-46.3) RDW Coefficient of Variation 14.6 % (11.5-14.5) Mean Platelet Volume 8.8 fL (7.4-10.4) Total Bilirubin 0.4 mg/dl (0.2-1) Direct Bilirubin 0.1 mg/dl (0-0.2) Aspartate Amino Transf (AST/SGOT) 26 U/L (15-37) Alanine Aminotransferase (ALT/SGPT) 20 U/L (12-78) Alkaline Phosphatase 51 U/L (45-117) Total Protein 7.5 gm/dl (6.4-8.2) Albumin 3.9 gm/dl (3.4-5.0) Thyroid Stimulating Hormone (TSH) 1.280 uIu/ml (0.300-4.500) Salicylates Level 6.2 mg/dl (2.8-20) Acetaminophen Level < 2 ug/ml (10-30) Ethyl Alcohol mg/dL 220.0 mg/dl (0-3) Urine Opiates Screen NEG (NEG) Urine Methadone, Qualitative NEG (NEG) Urine Barbiturates NEG (NEG) Urine Phencyclidine (PCP) Level NEG (NEG) Ur Amphetamine/Methamphetamine NEG (NEG) MDMA (Ecstasy) Screen NEG (NEG) Urine Benzodiazepines Screen NEG (NEG) Urine Cocaine Metabolite NEG (NEG) Urine Marijuana (THC) POS (NEG) Anion Gap 9.0 mmol/L (3-11) Est Creatinine Clear Calc Drug Dose 95.5 ml/min Estimated GFR () 116.2 Estimated GFR (Non- 100.3 BUN/Creatinine Ratio 22.7 (10-20) Calcium Level 9.0 mg/dl (8.5-10.1) Total Time Total Time Spent (min): Greater than 30 minutes Total Time Included: examination of the patient, discharge planning, medication reconciliation, communication with other providers Tobacco Cessation at Discharge FDA approved Prescription: patient refused
== END 2016-03-21 13:19 | disposition home or self-care (01) | DRG 885 ==
LOC: C.EDB 01:13 → C.MHU 09:19
PROVIDERS: ADMIT Student in an Organized Health Care Education/Training Program; ATTEND Psychiatry & Neurology Psychiatry
DX: F33.2 Major depressive disorder, recurrent severe without psychotic features (principal); R45.851 Suicidal ideations; Y90.7 Blood alcohol level of 200-239 mg/100 ml; F10.129 Alcohol abuse with intoxication, unspecified; I10 Essential (primary) hypertension; H91.90 Unspecified hearing loss, unspecified ear; F17.290 Nicotine dependence, other tobacco product, uncomplicated; M25.519 Pain in unspecified shoulder; Z79.82 Long term (current) use of aspirin; Z79.1 Long term (current) use of non-steroidal anti-inflammatories (NSAID); Z79.899 Other long term (current) drug therapy

== ENCOUNTER 2018-12-22 09:26 | Inpatient (IN) ==
[2018-12-22] MEDS ORDERED: fentaNYL citrate 100 MCG/2 ML VIAL IV STA (09:58)
[2018-12-22 10:30] LABS: Basophils # (auto) 0.04 K/uL (0-0.2); Basophils % (auto) 0.8 %; Eosinophils # (auto) 0.09 K/uL (0-0.5); Eosinophils % (auto) 1.7 %; Hematocrit (blood only) 47.1 % (42-52); Hemoglobin 16.7 g/dL (14.0-18.0); Lymphocytes # (auto) 0.85 K/uL (1.2-3.4); Lymphocytes % (auto) 16.3 %; Mean Corpuscular Hemoglobin 35.6 pg (25-34); Mean Corpuscular Hgb Conc 35.5 g/dL (32-36); Mean Corpuscular Volume 100.4 fL (80-100); Mean Platelet Volume 9.6 fL (7.4-10.4); Monocytes # (auto) 0.54 K/uL (0.11-0.59); Monocytes % (auto) 10.4 %; Neutrophils # (auto) 3.68 K/uL (1.4-6.5); Neutrophils % (auto) 70.8 %; Platelet Count 149 K/uL (130-400); RDW Coefficient of Variation 14.2 % (11.5-14.5); RDW Standard Deviation 51.9 fL (36.4-46.3); Red Blood Count 4.69 M/uL (4.7-6.1)
--- NOTE | 2018-12-22 10:44 | XRay Report ---
XR pelvis 1-2V routine CLINICAL HISTORY: Left hip pain COMPARISON: None. DISCUSSION: There are vascular calcifications present. No fractures are visualized. No destructive le sions are evident. The joint space appears relatively well preserved for age. IMPRESSION: No fractures identified. No destructive lesions identified Electronically signed by: Tha Cartwright M.D. 12/22/2018 10:42 AM
--- NOTE | 2018-12-22 10:44 | XRay Report ---
XR femur LT 2V routine CLINICAL HISTORY: L hip pain COMPARISON: None. DISCUSSION: No fractures or dislocations are visualized. There are no destructive lesions. Note is ma de of vascular calcifications. There is a peritrochanteric calcification. IMPRESSION: 1. No evidence of fracture. 2. No destructive lesions identified Electronically signed by: Tha Cartwright M.D. 12/22/2018 10:43 AM
[2018-12-22 10:49] LABS: Alanine Aminotransferase 30 U/L (12-78); Albumin Level 3.9 gm/dl (3.4-5.0); Aspartate Aminotransferase 37 U/L (15-37); BUN Creatinine Ratio 12.9 (10-20); Blood Urea Nitrogen 11 mg/dl (7-18); Calcium 9.1 mg/dl (8.5-10.1); Carbon Dioxide 24 mmol/L (21-32); Chloride 106 mmol/L (98-107); Est GFR (Non-African American) 91.4; Glucose 127 mg/dl (70-99); Potassium 3.7 mmol/L (3.5-5.1); Sodium 138 mmol/L (136-145)
[2018-12-22 10:52] LABS: Albumin Globulin Ratio 1.1 (0.9-2); Alkaline Phosphatase 59 U/L (45-117); Bilirubin,Total 0.7 mg/dl (0.2-1); Globulin 3.6 gm/dl (2.5-4.0); Total Protein 7.5 gm/dl (6.4-8.2)
--- NOTE | 2018-12-22 11:11 | Ultrasound Report ---
US venous doppler LE LT CLINICAL HISTORY: Left leg pain COMPARISON STUDY: No previous studies for comparison. FINDINGS: Real-time and color flow Doppler imaging were performed. Flow was seen within the femoral, popliteal and calf veins with no intraluminal thrombus demonstrated. The saphenous vein is patent. IMPRESSION: No evidence of left lower extremity DVT. Electronically signed by: Tha Cartwright M.D. 12/22/2018 11:10 AM
--- NOTE | 2018-12-22 11:33 | XRay Report ---
XR chest 1V portable CLINICAL HISTORY: Acute change in mental status COMPARISON STUDY: No previous studies for comparison. FINDINGS: The cardiac and mediastinal contours are normal. There is no evidence of focal pulmonary co nsolidation. There is no evidence of failure. No pleural effusions are visualized.[Slightly increased markings at both lung bases are felt to be secondary to a summation with overlying breast tissue. Th ere are presumed postsurgical changes involving the distal left clavicle. IMPRESSION: No active disease in the chest. Electronically signed by: Tha Cartwright M.D. 12/22/2018 11:32 AM
[2018-12-22] MEDS ORDERED: OPTIRAY 320 125ml IV PRN (11:36)
[2018-12-22 11:53] LABS: Partial Thromboplastin Time 27.3 Seconds (21.0-31.0); Prothrombin Time 9.8 Seconds (9.0-12.0)
--- NOTE | 2018-12-22 11:56 | CT Scan Report ---
CT angio head wo/w CT DOSE: CLINICAL HISTORY: Acute change in mental status. Slurred speech. Possible acute stroke. TECHNIQUE: Unenhanced images were obtained the brain. CT angiography was then performed a dynamic hel ical fashion during intravenous administration of 119 cc of Optiray 320. MIP images were acquired. A dose lowering technique was utilized adhering to the principles of ALARA. COMPARISON STUDY: Noncontrast head CT dated 03/09/2015 FINDINGS: Noncontrast images reveal no evidence of acute or subacute infarction. There is no midline shift. The re is no evidence of acute hemorrhage. There are minor white matter hypodensities, likely on a small vessel basis. There is right maxillary sinus mucosal thickening Postcontrast images reveal no pathologically enhancing masses. CT angiographic images reveal atherosclerotic calcification within the distal right vertebral artery resulting in a probable 40% diameter stenosis. There are atheromatous changes within the high right i nternal carotid artery. There is atheromatous calcification present within the cavernous carotids. Th ere is a 60% diameter narrowing of the left cavernous internal carotid. There is a 50% stenosis of th e left supraclinoid internal carotid. There are no lesion suspicious for aneurysm. The dural venous s inuses appear patent. IMPRESSION: 1. No evidence of aneurysm 2. Intracranial atherosclerotic disease with a 40% stenosis of the distal right vertebral artery, 60% stenosis of the left cavernous carotid, and 50% stenosis of the left supraclinoid internal carotid. Electronically signed by: Tha Cartwright M.D. 12/22/2018 11:55 AM
--- NOTE | 2018-12-22 12:05 | Emergency Department Note ---
History of Present Illness General Chief complaint: Leg Injury/Pain Stated complaint: SEVERE LEG PAIN IN UPPER LEFT THIGH Time Seen by Provider: 12/22/18 09:47 History of Present Illness Maximum Pain Intensity: 7 This is a 63-year-old male that presents to the emergency department via private vehicle accompanied by female with complaints of "severe leg pain and upper left thigh". The patient states that Sunday around 6:30 PM without known trauma or injury. The patient points to the left greater trochanter as location of pain that he currently rates as an 11/10. It increases with ambulation. Again no trauma or injury. He states that after eating supper this past Sunday he sat d own and that is and the pain increased. He has never had this before. No real alleviating factors. He could not sleep last night secondary to the pain and has difficulty bearing weight. No fevers or chills. He notes he has been disabled for the past 21 years. He notes regular alcohol use, normally about 6 drinks per night but notes he drank more last night. Home Medications Home Medications Medication Instructions Recorded Confirmed Type aspirin [Aspirin Low Dose] 81 mg PO DAILY #0 03/09/15 12/22/18 History naproxen sodium [Aleve] 220 mg PO BID #0 tab 07/04/15 12/22/18 History atorvastatin 40 mg PO DAILY 12/22/18 12/22/18 History cilostazol 100 mg PO BID 12/22/18 12/22/18 History Allergies Allergy/AdvReac Type Severity Reaction Status Date / Time No Known Allergies Allergy Unverified 07/04/15 19:49 Past Med/Surg History Medical History Dyslipidemia (Chronic) Carotid artery stenosis (Chronic) PAD (peripheral artery disease) (Chronic) Chronic shoulder pain (Chronic) Hypertension (Chronic) Alcohol abuse (Chronic) Depression (Chronic) Surgical History History of vasectomy (Chronic) H/O arthroscopy of shoulder (Chronic) H/O inguinal hernia repair (Chronic) H/O hemorrhoidectomy (Chronic) Family History Mother Heart disease Hypertension Father Hypertension 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 Beliefs That Will Affect Care: None Current Living Situation: Alone Other Information That Helps Us Care for You: No Feels Safe at Home: Yes Safety Concerns: Feels Safe At This Time Smoking Status: Current every day smoker Tobacco Type: cigarettes ; Do You Dip or Chew Tobacco: No ; Second Hand Exposure: No ; Tobacco Cessation Education Requested by Patient: No (REFUSED) Hx Alcohol Use: Yes Alcohol type: beer Alcohol type Comment: 8-10 beers/day Hx Substance Use: No Review of Systems A total of 10 systems reviewed and were otherwise negative Physical Exam Vital Signs Vital Signs - 24 hr 12/22/18 09:36 12/22/18 10:47 12/22/18 10:49 Temperature 36.7 C Temperature Source Oral Sepsis Recent Fever Within 48 Hours No Sepsis New/Unexplained Change in Mental Status No Sepsis Action Taken by Nursing No Action Required Pulse Rate 121 H Pulse Rate [Right Finger] 99 H Pulse Rate from SpO2 Sensor Respiratory Rate 20 20 Respiratory Effort / Characteristics Non-Labored Respiratory Depth Normal Blood Pressure 109/78 Blood Pressure [Left Arm] 104/81 Blood Pressure Mean 88 Blood Pressure Mean [Left Arm] 88 Pulse Oximetry 97 98 96 Oxygen Delivery Method Room Air Room Air Room Air 12/22/18 11:17 12/22/18 11:24 12/22/18 11:51 Temperature Temperature Source Sepsis Recent Fever Within 48 Hours Sepsis New/Unexplained Change in Mental Status Sepsis Action Taken by Nursing Pulse Rate 78 92 H 90 Pulse Rate [Right Finger] Pulse Rate from SpO2 Sensor 94 H 92 H Respiratory Rate 16 19 18 Respiratory Effort / Characteristics Respiratory Depth Blood Pressure 110/83 122/86 Blood Pressure [Left Arm] Blood Pressure Mean 92 98 Blood Pressure Mean [Left Arm] Pulse Oximetry 96 97 99 Oxygen Delivery Method Room Air 12/22/18 11:52 12/22/18 12:00 12/22/18 12:11 Temperature Temperature Source Sepsis Recent Fever Within 48 Hours Sepsis New/Unexplained Change in Mental Status Sepsis Action Taken by Nursing Pulse Rate 93 H 87 86 Pulse Rate [Right Finger] 82 Pulse Rate from SpO2 Sensor 88 87 85 Respiratory Rate 20 15 22 Respiratory Effort / Characteristics Non-Labored Respiratory Depth Normal Blood Pressure 101/76 126/100 Blood Pressure [Left Arm] 127/94 Blood Pressure Mean 84 108 Blood Pressure Mean [Left Arm] 105 Pulse Oximetry 99 100 99 Oxygen Delivery Method Room Air 12/22/18 12:12 12/22/18 12:15 12/22/18 12:30 Temperature Temperature Source Sepsis Recent Fever Within 48 Hours Sepsis New/Unexplained Change in Mental Status Sepsis Action Taken by Nursing Pulse Rate 91 H 86 79 Pulse Rate [Right Finger] Pulse Rate from SpO2 Sensor 90 83 81 Respiratory Rate 24 21 19 Respiratory Effort / Characteristics Respiratory Depth Blood Pressure 127/94 Blood Pressure [Left Arm] Blood Pressure Mean 105 Blood Pressure Mean [Left Arm] Pulse Oximetry 100 99 Oxygen Delivery Method 12/22/18 12:31 12/22/18 12:45 12/22/18 12:51 Temperature Temperature Source Sepsis Recent Fever Within 48 Hours Sepsis New/Unexplained Change in Mental Status Sepsis Action Taken by Nursing Pulse Rate 86 81 85 Pulse Rate [Right Finger] 82 Pulse Rate from SpO2 Sensor 82 83 83 Respiratory Rate 19 18 19 Respiratory Effort / Characteristics Non-Labored Respiratory Depth Normal Blood Pressure 95/75 L 124/104 H Blood Pressure [Left Arm] 106/86 Blood Pressure Mean 81 110 Blood Pressure Mean [Left Arm] 92 Pulse Oximetry 95 98 99 Oxygen Delivery Method Room Air 12/22/18 12:52 12/22/18 13:00 12/22/18 13:01 Temperature Temperature Source Sepsis Recent Fever Within 48 Hours Sepsis New/Unexplained Change in Mental Status Sepsis Action Taken by Nursing Pulse Rate 85 89 85 Pulse Rate [Right Finger] Pulse Rate from SpO2 Sensor 84 94 H 85 Respiratory Rate 21 14 19 Respiratory Effort / Characteristics Respiratory Depth Blood Pressure 106/86 122/98 Blood Pressure [Left Arm] Blood Pressure Mean 92 106 Blood Pressure Mean [Left Arm] Pulse Oximetry 95 94 98 Oxygen Delivery Method 12/22/18 13:15 12/22/18 13:30 12/22/18 13:31 Temperature Temperature Source Sepsis Recent Fever Within 48 Hours Sepsis New/Unexplained Change in Mental Status Sepsis Action Taken by Nursing Pulse Rate 96 H 90 89 Pulse Rate [Right Finger] Pulse Rate from SpO2 Sensor 94 H 92 H 90 Respiratory Rate 27 H 19 17 Respiratory Effort / Characteristics Respiratory Depth Blood Pressure 125/91 Blood Pressure [Left Arm] Blood Pressure Mean 102 Blood Pressure Mean [Left Arm] Pulse Oximetry 98 94 97 Oxygen Delivery Method 12/22/18 14:00 Temperature Temperature Source Sepsis Recent Fever Within 48 Hours Sepsis New/Unexplained Change in Mental Status Sepsis Action Taken by Nursing Pulse Rate Pulse Rate [Right Finger] 96 H Pulse Rate from SpO2 Sensor Respiratory Rate 18 Respiratory Effort / Characteristics Non-Labored Respiratory Depth Normal Blood Pressure Blood Pressure [Left Arm] 119/94 Blood Pressure Mean Blood Pressure Mean [Left Arm] 102 Pulse Oximetry 95 Oxygen Delivery Method Room Air VITAL SIGNS - Vital signs and nursing notes were reviewed. Tachycardic on arrival, otherwise stable. GENERAL -63-year-old male appearing his stated age who is in no acute distress but appears to be in pain. There is an odor of alcohol on the patient's breath with conversation. Communicates well with provider and answers questions appropriately. SKIN - Without rashes. No meningeal or petechial rash. Skin overlying left greater trochanter is unremarkable. No break in the integument. No erythema, or edema. HEAD - NC/AT. EYES - PERRL with EOMI bilaterally. Sclera anicteric. EARS - No deformities of external structures noted on gross examination bilaterally. NOSE - Midline and without cyanosis. No epistaxis or purulent drainage noted. Septum midline without deviation or septal hematoma noted. MOUTH/OROPHARYNX - Without perioral cyanosis. Buccal mucosa pink and moist and without leukoplakia. Tongue midline with equal elevation of palate bilaterally. No tonsillar hypertrophy, erythema, or exudates noted. LUNGS - Chest wall symmetric without accessory muscle use, intercostals retractions, or central cyanosis. Normal vesicular breath sounds CTA B/L. No wheezes, rales, or rhonchi appreciated. CARDIAC - RRR with S1/S2. No murmur, rubs, or gallops appreciated. ABDOMEN - Abdominal contour normal without pulsations or visible masses. BS normoactive all four quadrants. No tenderness, palpable masses, hepatosplenome rehana, or ascites noted. EXTREMITIES - No clubbing or peripheral cyanosis. No pretibial edema present .+5/5 strength noted in UE/LE bilaterally. Reproducible tenderness to palpation overlying the left greater trochanter. No other tenderness to the extremity. No palpable cord. NEUROLOGIC - Cranial nerves II through XII grossly intact. PSYCH - A&Ox3 and cooperates fully with examiner. Pt is very pleasant and interacts well with examiner. Course Administered Medications Discontinued Medications Fentanyl Citrate (Fentanyl Citrate) 25 mcg IV NOW STA Stop: 12/22/18 09:59 Last Admin: 12/22/18 10:50 Dose: 25 mcg Documented by: [id number] Ioversol (Optiray 320 125ml) 119 ml IV ONCE PRN PRN Reason: Interaction Checking Stop: 12/26/18 11:35 Last Admin: 12/22/18 11:36 Dose: 119 ml Documented by: [id number] Morphine Sulfate (Morphine Sulfate) 2 mg IV NOW STA Stop: 12/22/18 12:18 Last Admin: 12/22/18 12:25 Dose: 2 mg Documented by: [id number] Medical Decision Making Laboratory Data Result diagrams: 12/22/18 10:08 12/22/18 10:08 Lab Results 12/22/18 12/22/18 12/22/18 Range/Units 10:05 10:08 10:08 WBC 5.20 (4.8-10.8) K/uL RBC 4.69 L (4.7-6.1) M/uL Hgb 16.7 (14.0-18.0) g/dL Hct 47.1 (42-52) % MCV 100.4 H (80-100) fL MCH 35.6 H (25-34) pg MCHC 35.5 (32-36) g/dL RDW Std Deviation 51.9 H (36.4-46.3) fL RDW Coeff of Cecilia 14.2 (11.5-14.5) % Plt Count 149 (130-400) K/uL MPV 9.6 (7.4-10.4) fL Immature Gran % (Auto) 0.0 % Neut % (Auto) 70.8 % Lymph % (Auto) 16.3 % Bradley % (Auto) 10.4 % Eos % (Auto) 1.7 % Baso % (Auto) 0.8 % Immature Gran # (Auto) 0.00 (0.00-0.02) K/uL Neut # (Auto) 3.68 (1.4-6.5) K/uL Lymph # (Auto) 0.85 L (1.2-3.4) K/uL Bradley # (Auto) 0.54 (0.11-0.59) K/uL Eos # (Auto) 0.09 (0-0.5) K/uL Baso # (Auto) 0.04 (0-0.2) K/uL PT 9.8 (9.0-12.0) Seconds INR 1.0 (0.9-1.1) APTT 27.3 (21.0-31.0) Seconds PTT Ratio 1.0 Sodium 138 (136-145) mmol/L Potassium 3.7 (3.5-5.1) mmol/L Chloride 106 (98-107) mmol/L Carbon Dioxide 24 (21-32) mmol/L Anion Gap 8.0 (3-11) BUN 11 (7-18) mg/dl Creatinine 0.88 (0.6-1.4) mg/dl Est Cr Clr Drug Dosing Not Reportable Est GFR ( Amer) 106.0 Est GFR (Non-Af Amer) 91.4 BUN/Creatinine Ratio 12.9 (10-20) Glucose 127 H (70-99) mg/dl POC Glucose (70-99) Calcium 9.1 (8.5-10.1) mg/dl Magnesium 2.0 (1.8-2.4) mg/dl Total Bilirubin 0.7 (0.2-1) mg/dl AST 37 (15-37) U/L ALT 30 (12-78) U/L Alkaline Phosphatase 59 (45-117) U/L Troponin I (0-0.045) ng/ml Total Protein 7.5 (6.4-8.2) gm/dl Albumin 3.9 (3.4-5.0) gm/dl Globulin 3.6 (2.5-4.0) gm/dl Albumin/Globulin Ratio 1.1 (0.9-2) Urine Opiates Screen (Neg) Ur Methadone, Qual (Neg) Urine Barbiturates (Neg) Ur Phencyclidine (PCP) (Neg) U Amphetamin/Meth Scrn (Neg) MDMA (Ecstasy) Screen (Neg) U Benzodiazepines Scrn (Neg) Ur Cocaine Metabolite (Neg) U Marijuana (THC) Screen (Neg) Ethyl Alcohol mg/dL (0-3) mg/dl 12/22/18 12/22/18 12/22/18 Range/Units 10:08 10:08 11:21 WBC (4.8-10.8) K/uL RBC (4.7-6.1) M/uL Hgb (14.0-18.0) g/dL Hct (42-52) % MCV (80-100) fL MCH (25-34) pg MCHC (32-36) g/dL RDW Std Deviation (36.4-46.3) fL RDW Coeff of Cecilia (11.5-14.5) % Plt Count (130-400) K/uL MPV (7.4-10.4) fL Immature Gran % (Auto) % Neut % (Auto) % Lymph % (Auto) % Bradley % (Auto) % Eos % (Auto) % Baso % (Auto) % Immature Gran # (Auto) (0.00-0.02) K/uL Neut # (Auto) (1.4-6.5) K/uL Lymph # (Auto) (1.2-3.4) K/uL Bradley # (Auto) (0.11-0.59) K/uL Eos # (Auto) (0-0.5) K/uL Baso # (Auto) (0-0.2) K/uL PT (9.0-12.0) Seconds INR (0.9-1.1) APTT (21.0-31.0) Seconds PTT Ratio Sodium (136-145) mmol/L Potassium (3.5-5.1) mmol/L Chloride (98-107) mmol/L Carbon Dioxide (21-32) mmol/L Anion Gap (3-11) BUN (7-18) mg/dl Creatinine (0.6-1.4) mg/dl Est Cr Clr Drug Dosing Est GFR ( Amer) Est GFR (Non-Af Amer) BUN/Creatinine Ratio (10-20) Glucose (70-99) mg/dl POC Glucose 88 (70-99) Calcium (8.5-10.1) mg/dl Magnesium (1.8-2.4) mg/dl Total Bilirubin (0.2-1) mg/dl AST (15-37) U/L ALT (12-78) U/L Alkaline Phosphatase (45-117) U/L Troponin I 0.057 H* (0-0.045) ng/ml Total Protein (6.4-8.2) gm/dl Albumin (3.4-5.0) gm/dl Globulin (2.5-4.0) gm/dl Albumin/Globulin Ratio (0.9-2) Urine Opiates Screen (Neg) Ur Methadone, Qual (Neg) Urine Barbiturates (Neg) Ur Phencyclidine (PCP) (Neg) U Amphetamin/Meth Scrn (Neg) MDMA (Ecstasy) Screen (Neg) U Benzodiazepines Scrn (Neg) Ur Cocaine Metabolite (Neg) U Marijuana (THC) Screen (Neg) Ethyl Alcohol mg/dL 50.4 H (0-3) mg/dl 12/22/18 12/22/18 Range/Units 13:00 13:41 WBC (4.8-10.8) K/uL RBC (4.7-6.1) M/uL Hgb (14.0-18.0) g/dL Hct (42-52) % MCV (80-100) fL MCH (25-34) pg MCHC (32-36) g/dL RDW Std Deviation (36.4-46.3) fL RDW Coeff of Cecilia (11.5-14.5) % Plt Count (130-400) K/uL MPV (7.4-10.4) fL Immature Gran % (Auto) % Neut % (Auto) % Lymph % (Auto) % Bradley % (Auto) % Eos % (Auto) % Baso % (Auto) % Immature Gran # (Auto) (0.00-0.02) K/uL Neut # (Auto) (1.4-6.5) K/uL Lymph # (Auto) (1.2-3.4) K/uL Bradley # (Auto) (0.11-0.59) K/uL Eos # (Auto) (0-0.5) K/uL Baso # (Auto) (0-0.2) K/uL PT (9.0-12.0) Seconds INR (0.9-1.1) APTT (21.0-31.0) Seconds PTT Ratio Sodium (136-145) mmol/L Potassium (3.5-5.1) mmol/L Chloride (98-107) mmol/L Carbon Dioxide (21-32) mmol/L Anion Gap (3-11) BUN (7-18) mg/dl Creatinine (0.6-1.4) mg/dl Est Cr Clr Drug Dosing Est GFR ( Amer) Est GFR (Non-Af Amer) BUN/Creatinine Ratio (10-20) Glucose (70-99) mg/dl POC Glucose (70-99) Calcium (8.5-10.1) mg/dl Magnesium (1.8-2.4) mg/dl Total Bilirubin (0.2-1) mg/dl AST (15-37) U/L ALT (12-78) U/L Alkaline Phosphatase (45-117) U/L Troponin I 0.049 H* (0-0.045) ng/ml Total Protein (6.4-8.2) gm/dl Albumin (3.4-5.0) gm/dl Globulin (2.5-4.0) gm/dl Albumin/Globulin Ratio (0.9-2) Urine Opiates Screen Pos H (Neg) Ur Methadone, Qual Neg (Neg) Urine Barbiturates Neg (Neg) Ur Phencyclidine (PCP) Neg (Neg) U Amphetamin/Meth Scrn Neg (Neg) MDMA (Ecstasy) Screen Neg (Neg) U Benzodiazepines Scrn Neg (Neg) Ur Cocaine Metabolite Neg (Neg) U Marijuana (THC) Screen Pos H (Neg) Ethyl Alcohol mg/dL (0-3) mg/dl Imaging Data Radiologist's Impression: XR pelvis 1-2V routine CLINICAL HISTORY: Left hip pain COMPARISON: None. DISCUSSION: There are vascular calcifications present. No fractures are visualized. No destructive lesions are evident. The joint space appears relatively well preserved for age. IMPRESSION: No fractures identified. No destructive lesions identified Electronically signed by: Tha Cartwright M.D. 12/22/2018 10:42 AM XR femur LT 2V routine CLINICAL HISTORY: L hip pain COMPARISON: None. DISCUSSION: No fractures or dislocations are visualized. There are no destructive lesions. Note is made of vascular calcifications. There is a peritrochanteric calcification. IMPRESSION: 1. No evidence of fracture. 2. No destructive lesions identified Electronically signed by: Tha Cartwright M.D. 12/22/2018 10:43 AM US venous doppler LE LT CLINICAL HISTORY: Left leg pain COMPARISON STUDY: No previous studies for comparison. FINDINGS: Real-time and color flow Doppler imaging were performed. Flow was seen within the femoral, popliteal and calf veins with no intraluminal thrombus demonstrated. The saphenous vein is patent. IMPRESSION: No evidence of left lower extremity DVT. Electronically signed by: Tha Cartwright M.D. 12/22/2018 11:[address] angio head wo/w CT DOSE: CLINICAL HISTORY: Acute change in mental status. Slurred speech. Possible acute stroke. TECHNIQUE: Unenhanced images were obtained the brain. CT angiography was then performed a dynamic helical fashion during intravenous administration of 119 cc of Optiray 320. MIP images were acquired. A dose lowering technique was utilized adhering to the principles of ALARA. COMPARISON STUDY: Noncontrast head CT dated 03/09/2015 FINDINGS: Noncontrast images reveal no evidence of acute or subacute infarction. There is no midline shift. There is no evidence of acute hemorrhage. There are minor white matter hypodensities, likely on a small vessel basis. There is right maxillary sinus mucosal thickening Postcontrast images reveal no pathologically enhancing masses. CT angiographic images reveal atherosclerotic calcification within the distal right vertebral artery resulting in a probable 40% diameter stenosis. There are atheromatous changes within the high right internal carotid artery. There is atheromatous calcification present within the cavernous carotids. There is a 60% diameter narrowing of the left cavernous internal carotid. There is a 50% stenosis of the left supraclinoid internal carotid. There are no lesion susp icious for aneurysm. The dural venous sinuses appear patent. IMPRESSION: 1. No evidence of aneurysm 2. Intracranial atherosclerotic disease with a 40% stenosis of the distal right vertebral artery, 60% stenosis of the left cavernous carotid, and 50% stenosis of the left supraclinoid internal carotid. Electronically signed by: Tha Cartwright M.D. 12/22/2018 11:[address] angio neck with con CLINICAL HISTORY: Acute change in mental status. Suspected stroke. COMPARISON STUDY: MR angiography dated April 2014 TECHNIQUE: CT angiography was performed from the aortic arch to the skull base. MIP imaging was performed. The patient was scanned in a dynamic helical fashion during intravenous administration of 2019 cc of Optiray 320. A dose lowering technique was utilized adhering to the principles of ALARA. CT DOSE: 1171.12 mGy.cm Technique: CT angiogram of the carotid and vertebral arteries was obtained using intravenous contrast and 3-D reconstruction. NASCET criteria was utilized. Findings: There is pulmonary emphysema. There are moderate atheromatous changes within the right carotid bulb and proximal internal carotid artery resulting in a 50% diameter stenosis the p roximal right internal carotid artery. There is a 50% stenosis in the right internal carotid the level of the skull base. There are atheromatous changes present with in the left carotid bulb with a 70% stenosis of the left internal carotid artery origin. There is a 60% diameter stenosis in the left cavernous carotid. There is a 40% diameter stenosis of the distal right vertebral at the C1 level. There is no evidence of significant left vertebral artery stenosis although there are scattered atheromatous calcifications. IMPRESSION: 1. Progressive atherosclerotic changes. 2. 50% diameter stenosis in the proximal right internal carotid artery, and 50% diameter stenosis of the right internal carotid artery at the level of the skull base 2. 70% diameter stenosis of the left internal carotid artery origin, 60% diameter stenosis of the left cavernous carotid artery. 3. 40% diameter stenosis of the distal right vertebral artery at the C1 level. Electronically signed by: Tha Cartwright M.D. 12/22/2018 12:06 PM [facility] Narrative Patient was seen and evaluated as above in room A9. Review was performed of nursing notes and vital signs. After obtaining a thorough history and physical examination the above work up was performed. He presents to us today with complaints of left hip pain. It is reproducible on exam. This clinically correlated to likely be that of bursitis. X-ray of the pelvis and femur were obtained. These were negative. Results as above. The patient requested something for pain. I did draw baseline labs. Patient admitted to drinking alcohol this past evening. He already took ibuprofen. He notes Tylenol is not working for the pain. Ice has not helped either. I did draw an alcohol level and it was found to be 50.4. It was felt that I could safely and reasonably give him a small dose of fentanyl given the level of pain and being that this was a short-lived medication. He was given 25 mcg, one third the dose that he could likely have. He tolerated this well and then was sent to ultrasound to rule out DVT of the left lower extremity. Upon return he notes increase of pain. I was then emergently called by the nurse, I will note greater than half an hour after he was already given the fentanyl via IV as there was an altered mental status noted. Upon my entrance into the exam room patient and left-sided facial droop, was slurring his words and was not coherent. Family at bedside also agreed this is unusual for him. EKG was obtained and at that time revealed per my interpretation normal sinus rhythm, T wave abnormality in the lateral and inferior leads. Prolonged QT. Evidence of possible ischemia. This was compared to previous and the T wave inversions appear to be new. Troponin was also ordered an emergent CTA head and neck as well. Results of these as above and there is some stenosis but no thrombus. This episode lasted just a few minutes and resolved. I do not suspect hypoglycemia. Patient's troponin was then found to be elevated at 0.057. He had no complaints of chest pain or shortness of breath but was diaphoretic during the altered mental status event. Patient was then asked about the event and he remembers it somewhat but notes no chest pain or shortness of breath and is never had that before. He thinks it is from his level of pain. After some time it past he did ask for something more for pain and it was felt that I could provide a very small dose of morphine. He was given 2 mg IV. Given the patient's EKG changes, elevated troponin, and altered mental status that was transient I do believe that further evaluation and management in the inpatient setting is warranted. I did also have the attending physician go to bedside when I was called by the nurse. I discussed this with the hospitalist, ALBERT Pino. It was recommended to consult [facility] neurologist. I spoke to Dr. Reinoso. I discussed with him the stenosis found on CT. We agreed that this is likely incidental to the altered mental status event that the patient had that was transient earlier today. It was felt that he could have been from an acute change from fentanyl with the alcohol from earlier. Per request of the [facility] hospitalist team I did discuss this with Dr. Mtz of cardiology as well. In the absence of chest pain and with the work-up performed above/findings there were no further recommendations from cardiology at this time. Prior to the patient going upstairs for admission I did obtain a repeat EKG and troponin. Patient's EKG was improving as well as the troponin. Per my interpretation the repeat EKG revealed normal sinus rhythm, rate of 88 bpm. Prolonged QT persists. There is no longer T wave inversion in leads II. Lateral leads are improving. Patient will be admitted for further evaluation and management. Please refer to further documentation regarding his stay. Case was discussed with the attending physician. I attest that I have personally reviewed the patient medication list. I attest that I have reviewed the patient's blood pressure and it was found to be normal on arrival but did increase throughout his stay. GCS: 15 on arrival In the evaluation and treatment of this patient the following differential diagnoses were entertained: Fracture, dislocation, subluxation, lumbar radicular pain, arterial occlusion, DVT, infection, bursitis, among others. Impression & Plan Acute pain of left hip, Acute alteration in mental status, Acute electrocardiogram changes, Elevated troponin Discharge Plan Visit Data *Final* Discharge Date/Time: 12/22/18 14:49 Chief Complaint: Leg Injury/Pain Stated Complaint: SEVERE LEG PAIN IN UPPER LEFT THIGH ED Provider: Shaun Brantley ED Midlevel Provider: Nader Florez Discharge Problem: Acute pain of left hip, Acute alteration in mental status, Acute electrocardiogram changes, Elevated troponin Patient Disposition: Admitted As Inpatient Discharge Instructions Interventions: ED Discharge Assessment Last Done: 12/22/18 14:49
--- NOTE | 2018-12-22 12:08 | CT Scan Report ---
CT angio neck with con CLINICAL HISTORY: Acute change in mental status. Suspected stroke. COMPARISON STUDY: MR angiography dated April 2014 TECHNIQUE: CT angiography was performed from the aortic arch to the skull base. MIP imaging was perfo rmed. The patient was scanned in a dynamic helical fashion during intravenous administration of 2019 cc of Optiray 320. A dose lowering technique was utilized adhering to the principles of ALARA. CT DOSE: 1171.12 mGy.cm Technique: CT angiogram of the carotid and vertebral arteries was obtained using intravenous contrast and 3-D reconstruction. NASCET criteria was utilized. Findings: There is pulmonary emphysema. There are moderate atheromatous changes within the right carotid bulb and proximal internal carotid a rtery resulting in a 50% diameter stenosis the proximal right internal carotid artery. There is a 50% stenosis in the right internal carotid the level of the skull base. There are atheromatous changes present with in the left carotid bulb with a 70% stenosis of the left internal carotid artery origin. There is a 60% diameter stenosis in the left cavernous carotid. There is a 40% diameter stenosis of the distal right vertebral at the C1 level. There is no evidence of significant left vertebral artery stenosis although there are scattered atheromatous calcification s. IMPRESSION: 1. Progressive atherosclerotic changes. 2. 50% diameter stenosis in the proximal right internal carotid artery, and 50% diameter stenosis of the right internal carotid artery at the level of the skull base 2. 70% diameter stenosis of the left internal carotid artery origin, 60% diameter stenosis of the lef t cavernous carotid artery. 3. 40% diameter stenosis of the distal right vertebral artery at the C1 level. Electronically signed by: Tha Cartwright M.D. 12/22/2018 12:06 PM
[2018-12-22] MEDS ORDERED: MoRPHine SULFATE 2 MG/ML CARP IV STA (12:17)
[2018-12-22 14:25] LABS: Amphetamines+Metham, Urine Neg (Neg); Barbiturates, Urine Neg (Neg); Benzodiazepine, Urine Neg (Neg); Cocaine, Urine Neg (Neg); MDMA (Ecstacy), Urine Neg (Neg); Methadone, Urine Neg (Neg); Opiate, Urine Pos (Neg); Phencyclidine, Urine Neg (Neg)
--- NOTE | 2018-12-22 15:36 | Magnetic Resonance Report ---
MRI OF THE BRAIN WITHOUT CONTRAST CLINICAL HISTORY: facial droop, unresponsive episode SLURRED SPEECH. SUSPECTED STROKE. COMPARISON STUDY: CT scan performed the same day, MRI the brain dated to 11:15 FINDINGS: Sagittal T1, axial diffusion, proton density and T2 weighted axial, coronal FLAIR, and axial T1-weigh jaqui images were acquired. No intra or extra-axial mass lesions are visualized Axial diffusion-weighted images reveal no evidence of acute or subacute infarction. There is no evidence of ventricular dilatation. Proton density T2-weighted and FLAIR images reveal scattered foci of increased T2 signal within the w bradley matter, likely on a small vessel basis. This is mildly progressive when compared the prior 2014 study There are no abnormal flow voids. IMPRESSION: 1. No acute intracranial findings 2. No evidence of acute or subacute infarction 3. No evidence of intracranial mass in this noncontrast study 4. Slight progression in the nonspecific foci of increased T2 signal within the white matter likely o n a small vessel basis Electronically signed by: Tha Cartwright M.D. 12/22/2018 3:34 PM
[2018-12-22] MEDS ORDERED: PHARMACIST DISCHARGE MED REC CONSULT PRN (15:40)
[2018-12-22] MEDS ORDERED: GABAPENTIN 1200MG ALCOHOL WITHDRAWAL LOAD PO STA (16:28)
[2018-12-22] MEDS ORDERED: LORazepam 1 MG TAB PO PRN (16:28)
--- NOTE | 2018-12-22 16:39 | History & Physical Report ---
Date of Service December 22, 2018 Assessment & Plan (1) Episode of unresponsiveness: -Admit to telemetry -Patient initially presenting with reports of left hip pain; while in ED, patient received IV fentanyl 25 mcg and about 30 minutes later had an episode of unresponsiveness with left facial droop and slurred speech -Head and neck CTA were obtained that were negative for acute findings however did demonstrate bilateral carotid stenosis which patient is known to have and follows with vascular surgery -Brain MRI negative for acute findings -Suspect episode was secondary to IV fentanyl -Complete stroke work-up with echo -Neuro consult -Continue home doses of aspirin and statin (2) Elevated troponin: -Initial troponin 0.049 -No reports of chest pain -Initial EKG demonstrated new T wave inversions in the inferior lateral leads compared to EKG from 09/2018, repeat EKG was obtained and the T wave inversions have resolved -Continue to cycle cardiac enzymes, resting echo -Continue aspirin and statin (3) Greater trochanteric bursitis of left hip: -Patient with point tenderness over the left greater trochanter -Orthopedics consult for possible injection (4) Alcohol abuse: -Drinks 8-10 beers per day, last drink last evening -Alcohol level 50 -Start alcohol withdrawal protocol with gabapentin and PRN Ativan -Start multivitamin, folic acid, thiamine (5) PAD (peripheral artery disease): -Continue aspirin and Pletal (6) DVT prophylaxis: -SQ Lovenox History of Present Illness Chief Complaint: Left hip pain Primary Care Provider: Comfort Caro, DO 63 year old male who presents to the ED with left hip pain. Patient reports his symptoms began 3 days ago. Patient reports pain has been persistent. He has t ried an [id number] pain relief cream as well as Advil however neither provided any relief. He reports pain is a little bit better with walking. Denies any known trauma. No swelling. Denies numbness and tingling. While in the ED, patient received fentanyl 25 mcg IV. About 30 minutes later, patient had episode of unresponsiveness, slurred speech, left facial droop. Symptoms lasted for about 2 to 3 minutes and patient quickly returned back to his baseline. Patient reports he otherwise been feeling well recently. He has not had any of these symptoms before. He denies chest pain or shortness of breath. No lightheadedness, dizziness, diaphoresis, syncopal events. Denies abdominal pain, nausea, vomiting, diarrhea. No urinary symptoms. In the ED, pelvis and femur x-rays are negative for acute findings. Venous Doppler is negative for DVT. Head and neck CTAs were negative for acute findings however did demonstrate carotid stenosis which patient is known to have. Labs demonstrated a mildly elevated troponin at 0.049, EKG shows new T wave inversions in the inferior and lateral leads compared to EKG from 09/2017. Repeat EKG was obtained and T wave inversions have resolved. Allergies Allergy/AdvReac Type Severity Reaction Status Date / Time No Known Allergies Allergy Unverified 07/04/15 19:49 Home Medications Home Medications Medication Instructions Recorded Confirmed Type aspirin [Aspirin Low Dose] 81 mg PO DAILY #0 03/09/15 12/22/18 History naproxen sodium [Aleve] 220 mg PO BID #0 tab 07/04/15 12/22/18 History atorvastatin 40 mg PO DAILY 12/22/18 12/22/18 History cilostazol 100 mg PO BID 12/22/18 12/22/18 History Past Med/Surg History Medical History Dyslipidemia (Chronic) Carotid artery stenosis (Chronic) PAD (peripheral artery disease) (Chronic) Chronic shoulder pain (Chronic) Hypertension (Chronic) Alcohol abuse (Chronic) Depression (Chronic) Surgical History History of vasectomy (Chronic) H/O arthroscopy of shoulder (Chronic) H/O inguinal hernia repair (Chronic) H/O hemorrhoidectomy (Chronic) Family History Mother Heart disease Hypertension Father Hypertension Social History [employer] Required: No Beliefs That Will Affect Care: None Current Living Situation: Alone Other Information That Helps Us Care for You: No Feels Safe at Home: Yes Safety Concerns: Feels Safe At This Time Smoking Status: Current every day smoker Tobacco Type: cigarettes ; Do You Dip or Chew Tobacco: No ; Second Hand Exposure: No ; Tobacco Cessation Education Requested by Patient: No (REFUSED) Hx Alcohol Use: Yes Alcohol type: beer Alcohol type Comment: 8-10 beers/day Hx Substance Use: No Review of Systems Review of Systems: ROS per HPI, all other systems reviewed and negative Physical Exam Constitutional: WD/WN, vitals as above Eyes: PERRL, conjunctivae normal, anicteric sclerae ENMT: external ear and nose normal, oropharynx normal Respiratory: normal respiratory effort, lungs clear to auscultation Cardiovascular: Rate/Rhythm: regular rate and regular rhythm Vessels: normal peripheral pulses Extremities: no edema Gastrointestinal (Abdomen): normal bowel sounds, soft, nontender, no hepatosplenomegaly Musculoskeletal: no cyanosis or clubbing, extremities motor strength 5/5 Extremities: + lower leg abnormality (Point tenderness noted over the left greater trochanter) Left Skin: no rashes, warm and dry Neurologic: PERRL, EOMI, accommodation nl, no face palsy, no dysarthria moves all extremities and awake Motor/Sensory: + tremor (Mild tremor noted with outstretched hands); no pronator drift Cranial Nerves: tongue midline Coordination: normal [id number] test and normal bqja-sf-rryr test Results & Data Vital Signs (Past 12 Hours) Vital Signs Temp Pulse Pulse Resp BP BP Pulse Ox 12/22/18 15:47 37.2 C 99 H 17 193/112 H 97 12/22/18 15:40 36.8 C 105 H 20 140/113 H 96 12/22/18 14:49 98 H 20 141/90 H 98 12/22/18 14:00 96 H 18 119/94 95 12/22/18 13:31 89 17 97 12/22/18 13:30 90 19 125/91 94 12/22/18 13:15 96 H 27 H 98 12/22/18 13:01 85 19 98 12/22/18 13:00 89 14 122/98 94 12/22/18 12:52 85 21 106/86 95 12/22/18 12:51 85 82 19 124/104 H 106/86 99 12/22/18 12:45 81 18 98 12/22/18 12:31 86 19 95/75 L 95 12/22/18 12:30 79 19 12/22/18 12:15 86 21 99 12/22/18 12:12 91 H 24 127/94 100 12/22/18 12:11 86 82 22 126/100 127/94 99 12/22/18 12:00 87 15 101/76 100 12/22/18 11:52 93 H 20 99 12/22/18 11:51 90 18 122/86 99 12/22/18 11:24 92 H 19 110/83 97 12/22/18 11:17 78 16 96 12/22/18 10:49 96 12/22/18 10:47 99 H 20 104/81 98 12/22/18 09:36 36.7 C 121 H 20 109/78 97 Laboratory Results Short CBC 12/22/18 Range/Units 10:08 WBC 5.20 (4.8-10.8) K/uL Hgb 16.7 (14.0-18.0) g/dL Hct 47.1 (42-52) % Plt Count 149 (130-400) K/uL BMP 12/22/18 10:08 Sodium 138 Potassium 3.7 Chloride 106 Carbon Dioxide 24 BUN 11 Creatinine 0.88 Glucose 127 H Calcium 9.1 Cardiac Enzymes 12/22/18 12/22/18 Range/Units 10:08 13:41 Troponin I 0.057 H* 0.049 H* (0-0.045) ng/ml Liver Function 12/22/18 Range/Units 10:08 Total Bilirubin 0.7 (0.2-1) mg/dl AST 37 (15-37) U/L ALT 30 (12-78) U/L Alkaline Phosphatase 59 (45-117) U/L Albumin 3.9 (3.4-5.0) gm/dl Diagnostic Findings LEFT FEMUR X-RAY IMPRESSION: 1. No evidence of fracture. 2. No destructive lesions identified PELVIS X-RAY IMPRESSION: No fractures identified. No destructive lesions identified LEFT LOWER EXTREMITY VENOUS DOPPLER IMPRESSION: No evidence of left lower extremity DVT. CXR IMPRESSION: No active disease in the chest. HEAD CTA IMPRESSION: 1. No evidence of aneurysm 2. Intracranial atherosclerotic disease with a 40% stenosis of the distal right vertebral artery, 60% stenosis of the left cavernous carotid, and 50% stenosis of the left supraclinoid internal carotid. NECK CTA IMPRESSION: 1. Progressive atherosclerotic changes. 2. 50% diameter stenosis in the proximal right internal carotid artery, and 50% diameter stenosis of the right internal carotid artery at the level of the skull base 2. 70% diameter stenosis of the left internal carotid artery origin, 60% diameter stenosis of the left cavernous carotid artery. 3. 40% diameter stenosis of the distal right vertebral artery at the C1 level. Code Status & VTE Plan VTE Prophylaxis Plan VTE Prophylaxis will be ordered: Yes Supervising Physician Co-Signing Physician Notes I have seen and examined the patient and have discussed the case with the provider above. I agree with the assessment and plan as stated. 63 yo alcoholic smoker who presents with acute left hip pain including severe point tenderness over GTB. Heavy daily drinker, smokes and uses marijuana. Very minor elevation in troponin without chest pain or symptoms consistent with ACS. Nonischemic EKG. Physical exam reveals an oriented patient in distress with movement, normal respiratory rate and moves all extremities without issue. Can easily turn over in bed and sit up without issue. No other focal neurologic deficit at this time. Heart exam reveals normal S1 and S2, lungs are clear to auscultation. Severe point tenderness to palpation over L greater trochanteric bursa. Pt denies trauma and xrays of femur and pelvis are negative. Likely has greater trochanteric bursitis. Appreciate ortho considering injection of this site in am. Regarding unresponsive episode, this is possibly a result of Fentanyl in the setting of acute alcohol intoxication. He woke up and was lucid without seizure activity witnessed, so doubt seizure. Syncope also a possibility. TIA is another. Brain MRI is negative for acute intracranial changes. Defer to Neurology for recommendations. Echo with bubble study pending. This will also provide evidence against ACS if no new wall motion abnormality is noted. Advised to quit smoking/drinking heavily. DO Glenn
[2018-12-22] MEDS ORDERED: GABAPENTIN 600 MG TAB PO SCH (17:00)
[2018-12-22] MEDS: THIAMINE HCL 100 MG TAB PO SCH (17:18)
[2018-12-22] MEDS: FOLIC ACID 1 MG TAB PO SCH (17:18)
[2018-12-22] MEDS: MULTIVITAMIN TAB PO SCH (17:18)
[2018-12-22] MEDS: ACETAMINOPHEN 325 MG TAB PO PRN (17:21)
[2018-12-22] MEDS: TRAMADOL HCL 50 MG TABLET PO PRN (20:24)
[2018-12-22] MEDS: ENOXAPARIN INJ 40 MG/0.4 ML SYR SQ SCH (20:25)
[2018-12-22] MEDS: cilostazoL 100 MG TAB PO SCH (20:26)
[2018-12-22] MEDS: GABAPENTIN 600 MG TAB PO SCH (22:01)
[2018-12-23] MEDS: GABAPENTIN 600 MG TAB PO SCH ×3 (03:40→20:43)
[2018-12-23] MEDS: TRAMADOL HCL 50 MG TABLET PO PRN ×2 (03:40→20:41)
[2018-12-23] MEDS ORDERED: INFLUENZA ADMINISTRATION CHARGE ONE (03:45)
[2018-12-23] MEDS ORDERED: INFLUENZA VIRUS QUAD VACCINE 0.5 ML SYR IM ONE (03:45)
[2018-12-23 05:45] LABS: Basophils # (auto) 0.05 K/uL (0-0.2); Basophils % (auto) 0.9 %; Eosinophils # (auto) 0.11 K/uL (0-0.5); Eosinophils % (auto) 1.9 %; Hematocrit (blood only) 46.8 % (42-52); Hemoglobin 16.8 g/dL (14.0-18.0); Immature Granulocytes # (auto) 0.01 K/uL (0.00-0.02); Immature Granulocytes % (auto) 0.2 %; Lymphocytes # (auto) 1.27 K/uL (1.2-3.4); Lymphocytes % (auto) 21.9 %; Mean Corpuscular Hemoglobin 35.9 pg (25-34); Mean Corpuscular Hgb Conc 35.9 g/dL (32-36); Mean Platelet Volume 9.9 fL (7.4-10.4); Monocytes # (auto) 1.07 K/uL (0.11-0.59); Monocytes % (auto) 18.4 %; Neutrophils % (auto) 56.7 %; Platelet Count 138 K/uL (130-400); RDW Coefficient of Variation 14.2 % (11.5-14.5); RDW Standard Deviation 51.7 fL (36.4-46.3); Red Blood Count 4.68 M/uL (4.7-6.1); White Blood Count 5.81 K/uL (4.8-10.8)
[2018-12-23 06:20] LABS: BUN Creatinine Ratio 11.5 (10-20); Calcium 8.7 mg/dl (8.5-10.1); Creatinine Clr Calc Pharmacy 61.7 ml/min; Est GFR (African American) 78.9; Est GFR (Non-African American) 68.1; Potassium 4.7 mmol/L (3.5-5.1)
[2018-12-23] MEDS ORDERED: PERFLUTREN LIPID MICROSPHERE (DEFINITY) IV ONE (06:53)
[2018-12-23 07:12] LABS: Estimated Average Glucose 117 mg/dl; Hemoglobin A1C 5.7 % (4.5-5.6)
[2018-12-23] MEDS: ATORVASTATIN 40 MG TAB PO SCH (08:26)
[2018-12-23] MEDS: THIAMINE HCL 100 MG TAB PO SCH (08:26)
[2018-12-23] MEDS: ASPIRIN 81 MG ECTAB PO SCH (08:26)
[2018-12-23] MEDS: cilostazoL 100 MG TAB PO SCH ×2 (08:26→20:43)
[2018-12-23] MEDS: FOLIC ACID 1 MG TAB PO SCH (08:26)
[2018-12-23] MEDS: MULTIVITAMIN TAB PO SCH (08:26)
[2018-12-23] MEDS: LIDOCAINE 5% 1 PATCH TD SCH (08:28)
--- NOTE | 2018-12-23 09:27 | Orthopedic Consultation ---
Date of Consultation December 23, 2018 Assessment & Plan (1) Greater trochanteric bursitis of left hip: Explained the diagnosis to the patient in detail. We will proceed with conservative treatments including ice, Lidoderm patch, PT/OT for left hip greater trochanteric bursitis. We will hold off on injection at this time in the acute inpatient setting unless symptoms persist or worsen and hinder the patient's ability to ambulate further. Thank you for the consultation. History of Present Illness Reason for Consultation: Left hip pain Attending Physician: Isabelle Elizabeth DO History of Present Illness The patient is a 63 year old male who presents to the ED with persistent Left hip pain. Patient reports his symptoms began 3 days ago. He has tried an obye-awc-ldkgofa pain relief cream as well as Advil however neither provided any relief. He reports pain is a little bit better with walking. Denies any known trauma. No swelling. Denies numbness and tingling. Denies any previous symptoms. The patient was admitted for further inpatient observation and treatment. Allergies Allergy/AdvReac Type Severity Reaction Status Date / Time No Known Allergies Allergy Unverified 07/04/15 19:49 Home Medications Home Medications Medication Instructions Recorded Confirmed Type aspirin [Aspirin Low Dose] 81 mg PO DAILY #0 03/09/15 12/22/18 History naproxen sodium [Aleve] 220 mg PO BID #0 tab 07/04/15 12/22/18 History atorvastatin 40 mg PO DAILY 12/22/18 12/22/18 History cilostazol 100 mg PO BID 12/22/18 12/22/18 History Patient History Medical History Dyslipidemia (Chronic) Carotid artery stenosis (Chronic) PAD (peripheral artery disease) (Chronic) Chronic shoulder pain (Chronic) Hypertension (Chronic) Alcohol abuse (Chronic) Depression (Chronic) Surgical History History of vasectomy (Chronic) H/O arthroscopy of shoulder (Chronic) H/O inguinal hernia repair (Chronic) H/O hemorrhoidectomy (Chronic) Family History Mother Heart disease Hypertension Father Hypertension Social History (Reviewed 12/23/18 @ 09:25 by JAQUELINE Uriostegui Communication Ability: Effective Home Health Care Provider Required: No Beliefs That Will Affect Care: None Current Living Situation: Alone Other Information That Helps Us Care for You: No Feels Safe at Home: Yes Safety Concerns: Feels Safe At This Time Smoking Status: Current every day smoker Tobacco Type: cigarettes ; Do You Dip or Chew Tobacco: No ; Second Hand Exposure: No ; Tobacco Cessation Education Requested by Patient: No (REFUSED) Hx Alcohol Use: Yes Alcohol type: beer Alcohol type Comment: 8-10 beers/day Hx Substance Use: No Review of Systems Review of Systems: All systems reviewed & are unremarkable except as noted in HPI & below Constitutional: as per Subjective / HPI Physical Exam Physical Exam: LLE NVSI +EHL/FHL/TA/GS SILT grossly, +2 DP pulse, compartments soft NT, point tenderness overlying left hip greater trochanteric bursa, no erythema edema or signs of infection. Skin is clean dry and intact. Constitutional: WD/WN, vitals as above Results & Data Vital Signs (Past 12 Hours) Vital Signs Temp Pulse Pulse Resp BP BP Pulse Ox 12/23/18 07:49 124/84 12/23/18 07:48 37.4 C 104 H 20 192/117 H 94 12/23/18 03:36 37.0 C 90 17 173/100 H 94 12/22/18 23:49 89 166/96 H 12/22/18 23:44 37.2 C 89 19 181/104 H 94 12/22/18 23:06 90 Diagnostic Findings XR femur LT 2V routine CLINICAL HISTORY: L hip pain COMPARISON: None. DISCUSSION: No fractures or dislocations are visualized. There are no destructive lesions. Note is made of vascular calcifications. There is a peritrochanteric calcification. IMPRESSION: 1. No evidence of fracture. 2. No destructive lesions identified XR pelvis 1-2V routine CLINICAL HISTORY: Left hip pain COMPARISON: None. DISCUSSION: There are vascular calcifications present. No fractures are visualized. No destructive lesions are evident. The joint space appears relatively well preserved for age. IMPRESSION: No fractures identified. No destructive lesions identified
--- NOTE | 2018-12-23 11:55 | Consultation Report ---
DATE OF CONSULTATION: 12/23/2018 SUBJECTIVE: The patient is a 63-year-old male who presented to the ED yesterday with left hip pain. While there, he suffered a period of unresponsiveness. The decision was made to admit him to the ICU for further testing and monitoring. An Orthopedics consult was asked for his left hip pain. Currently, he is lying in bed, appears comfortable. He is a thin male. He states 3-4 day history of left lateral hip pain without injury or trauma. He denies any groin pain. He denies any radicular symptoms down the left lower extremity. He has tried Aspercreme, ibuprofen, Tylenol without significant relief. He states they did put a pain patch over the lateral hip earlier today and currently it does feel somewhat better. PHYSICAL EXAMINATION: He has no groin pain with motion about the hip. He is tender to palpate over the lateral hip region. X-RAYS: X-rays reviewed and showed no significant general changes about the left hip joint. ASSESSMENT: Left hip trochanteric bursitis. PLAN: The above discussed with the patient. He has tried conservative management thus far. We talked about a possible corticosteroid injection. He states currently it is feeling better with the pain patch. He would like to give it 24 hours to see if it resolves. We will check on him tomorrow and if he has persistent pain, consider corticosteroid injection. I also told him he could follow up with our office as an outpatient if he has recurrent pain or problems on discharge.
--- NOTE | 2018-12-23 13:06 | Neurology Consultation ---
Date of Consultation December 23, 2018 Assessment & Plan (1) Episode of unresponsiveness: 1. MRI brain - no acute findings 2. CTA head and neck- L ICA with 70% stenosis- known vascular disease - will need follow up with vascular surgeon as outpatient if not already being followed 3. optimize HTN, HLD, LDL <70 4. EtOH cessation discussed he is not interested- seizure protocol continue 5. smoking cessation discussed and increased risk of vascular disease- he voiced under standing 6. unclear what episode was in ED may have been medication related out patient EEG to assess 7. elevated troponin- trend 8. orthopedics for possible injection - bursitis of hip Supervising Physician Co-Signing Physician Notes Patient was seen and examined. Agree with Lauren Pineda PA-C as noted below. A 63 year old male with known atherosclerotic diease on ASA and statin and chronic alcohol used admitted after episode of altered mentation. Transient encephalopathy likely secondary to IV fentanyl. Patient currently back to baseline. MRI reviewed and negative for acute ischemic stroke. Discussed CTA findings wiht patient which showed diffuse atherosclerotic disease with known moderate to severe left common carotid stenosis. Discussed smoking and alcohol cessation.. Continue home ASA and statin. Patient states he does NOT wish to see Vascular surgery for known carotid disease. Agree with IV thiamine and alcohol withdrawal precautions. Please call me with any further questions or concerns. History of Present Illness Reason for Consultation: unresponsive episode Requesting Physician: Isabelle Elizabeth DO Attending Physician: Isabelle Elizabeth DO History of Present Illness Berry is a 63 year old male who presented to [facility] ED with left hip pain which started about 3 days ago. He has tried an bokc-uor-oeufkew pain relief cream as well as Advil for the pain which he states improved with walking there was not trauma he remembers. He received fentanyl 25 mcg IV and about 30 minutes later he had and episode of unresponsiveness, slurred speech, left facial droop which lasted for 2 to 3 minutes and patient quickly returned back to his baseline. Head and neck CTAs were negative for acute findings however did demonstrate carotid stenosis which patient is known to have. He had elevated troponin at 0.049, EKG shows new T wave inversions in the inferior and lateral leads compared to EKG from 09/2017 but was repeated and the T wave inversion resolved. He states he drinks 5-6 beers per and smoked 1 ppd cigarettes for 21 years but now smokes small cigars. He also smokes marijuana denies CP, SOB, abdominal pain, one sided weakness, numbness tingling, N, V, bowel or bladder symptoms. Allergies Allergy/AdvReac Type Severity Reaction Status Date / Time No Known Allergies Allergy Unverified 07/04/15 19:49 Home Medications Home Medications Medication Instructions Recorded Confirmed Type aspirin [Aspirin Low Dose] 81 mg PO DAILY #0 03/09/15 12/22/18 History naproxen sodium [Aleve] 220 mg PO BID #0 tab 07/04/15 12/22/18 History atorvastatin 40 mg PO DAILY 12/22/18 12/22/18 History cilostazol 100 mg PO BID 12/22/18 12/22/18 History Patient History Medical History Dyslipidemia (Chronic) Carotid artery stenosis (Chronic) PAD (peripheral artery disease) (Chronic) Chronic shoulder pain (Chronic) Hypertension (Chronic) Alcohol abuse (Chronic) Depression (Chronic) Surgical History History of vasectomy (Chronic) H/O arthroscopy of shoulder (Chronic) H/O inguinal hernia repair (Chronic) H/O hemorrhoidectomy (Chronic) Family History Mother Heart disease Hypertension Father Hypertension Social History Communication Ability: Effective Sales Planning Manager Required: No Beliefs That Will Affect Care: None Current Living Situation: Alone Other Information That Helps Us Care for You: No Feels Safe at Home: Yes Safety Concerns: Feels Safe At This Time Smoking Status: Current every day smoker Tobacco Type: cigarettes ; Do You Dip or Chew Tobacco: No ; Second Hand Exposure: No ; Tobacco Cessation Education Requested by Patient: No (REFUSED) Hx Alcohol Use: Yes Alcohol type: beer Alcohol type Comment: 8-10 beers/day Hx Substance Use: No Physical Exam Physical Exam: Physical Exam: Constitutional: appearance nourished, healthy and thin Ears, Nose, Mouth and Throat: mucous membranes moist, no injection and skin normal, eyes normal Cardiovascular: normal S-1 and S-2 and regular rate and rhythm Respiratory: course breath sounds Musculoskeletal: no peripheral edema and good distal pulses Skin: no stigmata of neurocutaneous disease noted and normal and intact Eyes: extraocular muscles intact (EOMI) and pupils equal, round and reactive to light (PERRL) NEUROLOGIC EXAMINATION: Mental status: Alert and interactive Oriented identifies button, stethoscope, pen-write with it Oriented to person Speech fluent with no evidence of aphasia Cranial Nerves smile eye brow raise symmetric Reflexes: Deep tendon reflexes were symmetrical and graded 2/5. down going toes Sensory: sensation intact to vibration, cool , light touch Coordination: finger to nose tremor bilaterally, heel to albert not dysmetric Gait/Stance: Posture sitting up in bed Motor: Negative for pronator drift of out stretched arms with eyes closed. Strength: biceps triceps hand senior teradata developer bilaterally 5/5, hip flex plantar flex ext 5/5 bialterally Results & Data Vital Signs (Past 12 Hours) Vital Signs Temp Pulse Resp BP BP Pulse Ox 12/23/18 12:25 90/60 L 12/23/18 11:51 162/110 H 12/23/18 11:45 157/138 H 12/23/18 11:40 37.1 C 103 H 16 190/109 H 94 12/23/18 07:49 124/84 12/23/18 07:48 37.4 C 104 H 20 192/117 H 94 12/23/18 03:36 37.0 C 90 17 173/100 H 94 Laboratory Results Abnormal lab results 12/22/18 12/22/18 12/22/18 Range/Units 10:08 13:00 13:41 RBC (4.7-6.1) M/uL MCH (25-34) pg RDW Std Deviation (36.4-46.3) fL [place] # (Auto) (0.11-0.59) K/uL Hemoglobin A1c 5.7 H (4.5-5.6) % Troponin I 0.049 H* (0-0.045) ng/ml Urine Opiates Screen Pos H (Neg) U Marijuana (THC) Screen Pos H (Neg) 12/22/18 12/23/18 12/23/18 Range/Units 18:50 00:30 05:29 RBC 4.68 L (4.7-6.1) M/uL MCH 35.9 H (25-34) pg RDW Std Deviation 51.7 H (36.4-46.3) fL [place] # (Auto) 1.07 H (0.11-0.59) K/uL Hemoglobin A1c (4.5-5.6) % Troponin I 0.057 H* 0.054 H* (0-0.045) ng/ml Urine Opiates Screen (Neg) U Marijuana (THC) Screen (Neg) Diagnostic Findings CXR - No active disease in the chest. CTA head-. No evidence of aneurysm Intracranial atherosclerotic disease with a 40% stenosis of the distal right vertebral artery, 60% stenosis of the left cavernous carotid, and 50% stenosis of the left supraclinoid internal carotid. CTA neck- Progressive atherosclerotic changes. 50% diameter stenosis in the proximal right internal carotid artery, and 50% diameter stenosis of the right internal carotid artery at the level of the skull base 70% diameter stenosis of the left internal carotid artery origin, 60% diameter stenosis of the left cavernous carotid artery. 40% diameter stenosis of the distal right vertebral artery at the C1 level. MRI brain-No acute intracranial findings No evidence of acute or subacute infarction No evidence of intracranial mass in this noncontrast study Slight progression in the nonspecific foci of increased T2 signal within the white matter likely on a small vessel basis
--- NOTE | 2018-12-23 18:34 | Hospitalist Progress Note ---
Date of Service December 23, 2018 Assessment & Plan (1) Greater trochanteric bursitis of left hip: The patient has achieved some relief with Lidoderm patch per orthopedics. No injection until conservative measures have failed. We will continue to monitor overnight. Appreciate PT/OT working with him today. (2) Episode of unresponsiveness: Suspect episode was secondary to off of IV fentanyl in the setting of alcohol use. Work-up including head and neck CT as well as brain MRI were negative for acute findings. He was noted to have bilateral carotid stenosis which is previously known. Per neurology outpatient follow-up with vascular surgery may be warranted. He has no focal deficits that reemerged overnight. Review of telemetry reveals sinus rhythm overnight with no evidence of arrhythmias. Continue home dose of aspirin and statin. No further neurologic work-up at this time. (3) Elevated troponin: The patient presented with a mildly bumped troponin to 0.049. He had no reports of chest pain this was an incidental finding after an unresponsive episode. After his very brief syncopal episode he woke up and was clear. Doubt seizure activity. Doubt ACS as he had no other clinical symptoms. He continued to remain asymptomatic overnight. Telemetry revealed sinus rhythm overnight. No evidence of ischemia on EKG. Cardiac enzymes did not accelerate upward and resting echocardiogram revealed no left wall motion abnormalities. No further cardiac work-up is necessary at this time. (4) Alcohol abuse: Heavy drinker on withdrawal protocol with gabapentin and as needed Ativan. No evidence of withdrawal is present at this time outside of mild tachycardia. Continue multivitamin folic acid and thiamine daily. (5) PAD (peripheral artery disease): Known history of carotid disease. Outpatient vascular surgery consultation recommended. Continue aspirin, statin, Pletal. (6) Smoking: Patient continues to actively smoke. Declines nicotine patch. This is the #1 focus for risk reduction of PAD, CVA, CAD. Advised against continued smoke as it is bad for his health. (7) DVT prophylaxis: SQ Lovenox Full code Disposition-continue to monitor for pain improvement overnight Isabelle Elizabeth DO [facility] Hospitalist Subjective Patient doing well. Received lidocaine patch and pain feels better in his hip. He had only had approximately [address] I went by. Ortho was relieved on throughout the rest the day prior to considering any injection therapy. PT/OT examinations performed. Patient denies any chest pain, shortness of breath, neurologic deficits after his unresponsive episode yesterday. Review of Systems Review of Systems: All systems reviewed & are unremarkable except as noted in HPI & below Physical Exam Physical Exam: CONSTITUTIONAL: WNWD, vitals as above, generally well- appearing EYES: EOMI bilaterally, PERRL, normal conjunctivae, no scleral icterus ENT: MMM RESPIRATORY: clear to auscultation bilaterally, no crackles, rales or wheezes, normal respiratory effort CARDIOVASCULAR: regular rate and rhythm, S1 and 2 heard without murmurs, gallops or rubs, no JVD, no peripheral edema GASTROINTESTINAL: normal bowel sounds, soft, nontender, nondistended MUSCULOSKELETAL: strength 5/5 throughout, head is normocephalic and atraumatic SKIN: warm and dry NEUROLOGIC: No facial palsy, no dysarthria. CN 2-12 grossly intact, no sensory deficit, normal cognition, normal speech, no gross focal deficits. PSYCHIATRIC: alert cooperative and oriented to person, place and time. Results & Data Vital Signs (Past 12 Hours) Vital Signs Temp Pulse Pulse Resp BP BP Pulse Ox 12/23/18 17:00 101 H 12/23/18 15:10 37.1 C 99 H 18 95/73 L 95 12/23/18 12:25 90/60 L 12/23/18 11:51 162/110 H 12/23/18 11:45 157/138 H 12/23/18 11:40 37.1 C 103 H 16 190/109 H 94 12/23/18 07:49 124/84 12/23/18 07:48 37.4 C 104 H 20 192/117 H 94 Laboratory Results Short CBC 12/23/18 Range/Units 05:29 WBC 5.81 (4.8-10.8) K/uL Hgb 16.8 (14.0-18.0) g/dL Hct 46.8 (42-52) % Plt Count 138 (130-400) K/uL BMP 12/23/18 05:29 Sodium 136 Potassium 4.7 D Chloride 103 Carbon Dioxide 29 BUN 13 Creatinine 1.14 Glucose 81 Calcium 8.7 Cardiac Enzymes 12/22/18 12/23/18 Range/Units 18:50 00:30 Troponin I 0.057 H* 0.054 H* (0-0.045) ng/ml Medications Administered Current Inpatient Medications Acetaminophen (Tylenol) 650 mg PO Q4H PRN PRN Reason: Pain or Fever Stop: 01/21/19 15:39 Last Admin: 12/22/18 17:21 Dose: 650 mg Documented by: Aspirin (Ecotrin Ectab) 81 mg PO DAILY [facility] Stop: 01/22/19 08:59 Last Admin: 12/23/18 08:26 Dose: 81 mg Documented by: Atorvastatin Calcium (Lipitor) 40 mg PO DAILY [facility] Stop: 01/22/19 08:59 Last Admin: 12/23/18 08:26 Dose: 40 mg Documented by: Cilostazol (Pletal) 100 mg PO BID [facility] Stop: 01/21/19 20:59 Last Admin: 12/23/18 08:26 Dose: 100 mg Documented by: Enoxaparin Sodium (Lovenox) 40 mg SQ HS [facility] Stop: 01/21/19 20:59 Last Admin: 12/22/18 20:25 Dose: 40 mg Documented by: Folic Acid (Folvite) 1 mg PO QAM [facility] Stop: 01/21/19 16:29 Last Admin: 12/23/18 08:26 Dose: 1 mg Documented by: Gabapentin (Neurontin) 600 mg PO Q12H [facility] Stop: 12/25/18 06:01 Gabapentin (Neurontin) 600 mg PO Q24H [facility] Stop: 12/26/18 06:01 Gabapentin (Neurontin) 600 mg PO Q8H [facility] Stop: 12/24/18 06:01 Last Admin: 12/23/18 14:22 Dose: 600 mg Documented by: Lidocaine (Lidoderm 5%) 1 patch TD QAM [facility] Stop: 01/22/19 08:59 Last Admin: 12/23/18 08:28 Dose: 1 patch Documented by: Lorazepam (Ativan) 1 - 3 mg PO UD PRN; Protocol PRN Reason: EtoH Withdrawal AWSS 6-10+ Stop: 01/21/19 16:27 Miscellaneous (Remove Lidoderm Patch) 1 ea N/A DAILY@2100 [facility] Stop: 01/22/19 20:59 Miscellaneous Information (Pharmacist Discharge Med Rec Consult) 1 ea N/A UD PRN PRN Reason: Consult Stop: 01/21/19 15:39 Multivitamins (Multivitamin Tab) [facility] [place] Stop: 01/21/19 16:29 Last Admin: 12/23/18 08:26 Dose: 1 tab Documented by: Thiamine HCl (Vitamin B-1) 100 mg PO QAM ONUR Stop: 01/21/19 08:59 Last Admin: 12/23/18 08:26 Dose: 100 mg Documented by: Tramadol HCl (Ultram) 50 mg PO Q4H PRN PRN Reason: Pain Stop: 01/21/19 18:40 Last Admin: 12/23/18 03:40 Dose: 50 mg Documented by:
[2018-12-23] MEDS: ACETAMINOPHEN 325 MG TAB PO PRN (19:53)
[2018-12-23] MEDS: ENOXAPARIN INJ 40 MG/0.4 ML SYR SQ SCH (20:42)
[2018-12-24] MEDS: GABAPENTIN 600 MG TAB PO SCH (06:11)
[2018-12-24 06:29] LABS: Basophils # (auto) 0.03 K/uL (0-0.2); Basophils % (auto) 0.5 %; Eosinophils % (auto) 1.7 %; Hematocrit (blood only) 47.1 % (42-52); Hemoglobin 16.3 g/dL (14.0-18.0); Immature Granulocytes # (auto) 0.01 K/uL (0.00-0.02); Immature Granulocytes % (auto) 0.2 %; Lymphocytes # (auto) 1.09 K/uL (1.2-3.4); Lymphocytes % (auto) 18.3 %; Mean Corpuscular Hemoglobin 35.1 pg (25-34); Mean Corpuscular Hgb Conc 34.6 g/dL (32-36); Mean Corpuscular Volume 101.5 fL (80-100); Mean Platelet Volume 9.9 fL (7.4-10.4); Monocytes # (auto) 0.77 K/uL (0.11-0.59); Monocytes % (auto) 12.9 %; Neutrophils # (auto) 3.97 K/uL (1.4-6.5); Neutrophils % (auto) 66.4 %; Platelet Count 131 K/uL (130-400); RDW Coefficient of Variation 14.1 % (11.5-14.5); RDW Standard Deviation 52.4 fL (36.4-46.3); Red Blood Count 4.64 M/uL (4.7-6.1); White Blood Count 5.97 K/uL (4.8-10.8)
[2018-12-24 07:09] LABS: BUN Creatinine Ratio 16.9 (10-20); Calcium 8.5 mg/dl (8.5-10.1); Creatinine Clr Calc Pharmacy 81.8 ml/min; Est GFR (Non-African American) 92.3; Potassium 4.4 mmol/L (3.5-5.1)
[2018-12-24] MEDS: MULTIVITAMIN TAB PO SCH (07:54)
[2018-12-24] MEDS: cilostazoL 100 MG TAB PO SCH (07:54)
[2018-12-24] MEDS: LIDOCAINE 5% 1 PATCH TD SCH (07:54)
[2018-12-24] MEDS: ATORVASTATIN 40 MG TAB PO SCH (07:54)
[2018-12-24] MEDS: FOLIC ACID 1 MG TAB PO SCH (07:54)
[2018-12-24] MEDS: ASPIRIN 81 MG ECTAB PO SCH (07:55)
[2018-12-24] MEDS: THIAMINE HCL 100 MG TAB PO SCH (07:55)
[2018-12-24] MEDS ORDERED: STROKE PATIENT DISCHARGE STA (13:33)
--- NOTE | 2018-12-24 13:36 | Discharge Summary ---
Date of Service December 24, 2018 Admission HPI Per Admitting Provider 63 year old male who presents to the ED with left hip pain. Patient reports his symptoms began 3 days ago. Patient reports pain has been persistent. He has tried an otbn-zmr-myrsbek pain relief cream as well as Advil however neither provided any relief. He reports pain is a little bit better with walking. Denies any known trauma. No swelling. Denies numbness and tingling. While in the ED, patient received fentanyl 25 mcg IV. About 30 minutes later, patient had episode of unresponsiveness, slurred speech, left facial droop. Symptoms lasted for about 2 to 3 minutes and patient quickly returned back to his baseline. Patient reports he otherwise been feeling well recently. He has not had any of these symptoms before. He denies chest pain or shortness of breath. No lightheadedness, dizziness, diaphoresis, syncopal events. Denies abdominal pain, nausea, vomiting, diarrhea. No urinary symptoms. In the ED, pelvis and femur x-rays are negative for acute findings. Venous Doppler is negative for DVT. Head and neck CTAs were negative for acute findings however did demonstrate carotid stenosis which patient is known to have. Labs demonstrated a mildly elevated troponin at 0.049, EKG shows new T wave inversions in the inferior and lateral leads compared to EKG from 09/2017. Repeat EKG was obtained and T wave inversions have resolved. Admission Exam Per Admitting Provider Constitutional: WD/WN, vitals as above Eyes: PERRL, conjunctivae normal, anicteric sclerae ENMT: external ear and nose normal, oropharynx normal Respiratory: normal respiratory effort, lungs clear to auscultation Cardiovascular: Rate/Rhythm: regular rate and regular rhythm Vessels: normal peripheral pulses Extremities: no edema Gastrointestinal (Abdomen): normal bowel sounds, soft, nontender, no hepatosplenomegaly Musculoskeletal: no cyanosis or clubbing, extremities motor strength 5/5 Extremities: + lower leg abnormality (Point tenderness noted over the left greater trochanter) Left Skin: no rashes, warm and dry Neurologic: PERRL, EOMI, accommodation nl, no face palsy, no dysarthria moves all extremities and awake Motor/Sensory: + tremor (Mild tremor noted with outstretched hands); no pronator drift Cranial Nerves: tongue midline Coordination: normal oypmdw-[id number]-ozrf test and normal ahab-bh-ierd test Principal Diagnosis greater trochanteric bursitis of hip alcohol abuse tobacco abuse Discharge Data Allergies Allergy/AdvReac Type Severity Reaction Status Date / Time No Known Allergies Allergy Unverified 07/04/15 19:49 Consultations 12/22/18 13:16 ED Decision to Admit Stat 12/22/18 15:40 Consult Case Management - Discharge Planning Routine Consult Neurology Routine Consult Orthopedic Surgery Routine Ordered Studies 12/22/18 10:16 US venous doppler LE LT Stat 12/22/18 11:21 CT angio head wo/w Stat CT angio neck with con Stat 12/22/18 14:25 MR brain wo con Urgent Hospital Course (1) Greater trochanteric bursitis of left hip: (2) Episode of unresponsiveness: (3) Elevated troponin: (4) Alcohol abuse: (5) PAD (peripheral artery disease): (6) Smokin-year-old alcoholic man who uses tobacco and smokes marijuana presented to the ER with left hip pain that was severe. In the ER he was given IV fentanyl but was also intoxicated with an alcohol level of 50. Approximately 30 minutes later he had an unresponsive episode that was brief, woke up and was oriented. Work-up included a chest x-ray revealing no active disease in the chest, neck CTA revealing progressive atherosclerotic changes including a 70% stenosis of the left internal carotid artery. Peripheral vascular disease in the carotids was a known issue. A head CTA was performed revealing no evidence of aneurysm and variable amounts of stenosis in cerebral arteries. A brain MRI was performed revealing no acute intracranial findings, no evidence of acute or subacute infarction, and no evidence of intracranial mass. Neurology was consulted and felt the episode was consistent with the combination of alcohol and fentanyl. He was placed on telemetry and did not experience any arrhythmias during this hospitalization. He also did not have a recurring episode of unresponsiveness or any neurologic deficits. Left hip pain was treated with a Lidoderm patch per orthopedics who saw him in the hospital. This worked to bring his pain from an 01/19 to 05/19 the following day. Physical therapy saw him and felt he was safe to be discharged from an ambulation standpoint. The patient was advised that if he needed to undergo injection therapy he could follow-up with [facility] as an outpatient. Additional diagnostic studies during this hospitalization included an echocardiogram with mildly elevated troponin that was seen on lab work. The echocardiogram revealed ejection fraction 60-65% with no segmental left ventricular wall motion abnormalities noted. Moderate concentric LVH was noted, and there was no significant valvular pathology. The troponin was 0.049 and was trended to be 0.057 then 0.054 overnight. EKGs were it not consistent with ischemia and the patient never admitted to chest pain or shortness of breath or other ACS symptoms. Troponin was likely secondary to demand ischemia. The patient was an alcoholic and placed on a withdrawal protocol including gabapentin and PRN Ativan. He did well with this but did demonstrate tachycardia during the hospitalization. Also of note is a difference in the blood pressure measurements of his right and left arm. This was not apparent until the time of discharge at which point the patient was agitated and wanting to leave the hospital. This should be followed up by the primary care doctor within a week. Final repeat blood pressure in the left arm was 170/105 with the right arm 135/84. He was given a prescription for Lidoderm patches and declined any nicotine supplementation. He states he will not stop drinking or smoking. At time of discharge a physical exam was performed revealing a hemodynamically stable and afebrile patient who was mentating at baseline. Pain was controlled with Lidoderm patch. Physical exam was otherwise unremarkable with clear lungs to auscultation and normal heart exam. He was sent home in stable condition with close primary care follow-up. Of note, outpatient vascular surgery evaluation was recommended for his carotid artery disease. He was discharged with no change to his home medications including aspirin 81 mg daily, atorvastatin 40 mg daily and cilostazol 100 mg p.o. twice daily. Total Time Total Time Spent Total Time Spent (In Minutes): 60 Total Time Includes: Examination of the Patient, Discharge Planning, Medication Reconciliation, Communication With Other Providers and Other (arrange outpatient followup) Discharge Plan Discharge Items Patient Disposition: Home - Self-Care Reason For Visit: UNRESPONSIVE EPISODE Discharge Diagnosis: greater trochanteric bursitis of hip alcohol abuse tobacco abuse Condition on Discharge: Good Goals: Continue using Lidoderm patch for pain control. If no improvement, please contact [facility] to set up a time for a hip injection. Activity: Resume your previous activity Non-emergency contact: Primary Care Provider Call non-emergency contact if: you have any medication questions, your symptoms worsen, your pain is not controlled, your pain is worsening, your pain is unusual for you, your pain is concerning for you and you have a fever Follow-up/Referrals: Comfort Caro DO [Primary Care Provider] - Diet: Heart Healthy Addtl Attending Provider Instructions: Please take all medications as prescribed on discharge list below. Please follow-up with primary care physician within one week of discharge to ensure your pain is resolved. 12/27/2018 1:00 PM Comfort Caor DO [facility], [place] It was a pleasure taking care of you! Please call if you have any questions or problems. You can reach a [facility] hospitalist on duty at [facility] 24 hours a day by calling [phone]. Take care of yourself. Isabelle Elizabeth DO [facility] at Discharge: No Stand-Alone Forms: My [facility] Medications and DC Order Prescriptions: New lidocaine 5 % Adhesive Patch,Medicated 1 patch transdermal QAM PRN (Reason: hip pain) Qty: 15 RF: 1 Continued aspirin [Aspirin Low Dose] 81 mg Tablet,Delayed Release (Dr/Ec) 81 mg PO DAILY Qty: 0 RF: 0 naproxen sodium [Aleve] 220 mg Tablet 220 mg PO BID Qty: 0 RF: 0 atorvastatin 40 mg tablet 40 mg PO DAILY RF: 0 cilostazol 100 mg tablet 100 mg PO BID RF: 0 Discharge Orders: Discharge Order (Routine); Ordered 12/24/18 Ordered By: Isabelle Mcintosh/Other Patient Handouts: Bursitis Admission Data Admit Date/Time: 12/22/18 14:08 Attending Provider: Isabelle Elizabeth Admit Provider: Isabelle Elizabeth Primary Care Provider: Comfort Caro Other Providers: Marine Sewell ; Maurisio Reinoso ; Greg Kay Other Interventions: Discharge Summary Assessment (RN) Last Done: 12/24/18 15:21 DC Date/Time DO NOT enter until pt leaves facility: 12/24/18 16:22
[2018-12-24] MEDS ORDERED: GABAPENTIN 600 MG TAB PO SCH (18:00)
[2018-12-25 03:10] LABS: Codeine Urine NEGATIVE NG/ML (CUTOFF=50); Hydrocodone Urine NEGATIVE NG/ML (CUTOFF=50); Hydromor Urine NEGATIVE NG/ML (CUTOFF=50); Marijuana Quant, GCMS Urine 28 NG/ML (CUTOFF=5); Morphine Urine 401 NG/ML (CUTOFF=50); Norhydrocodone Conf Ur NEGATIVE NG/ML (CUTOFF=50); Noroxycodone Urine NEGATIVE NG/ML (CUTOFF=50); Oxycodone Urine NEGATIVE NG/ML (CUTOFF=50); Oxymorph Urine NEGATIVE NG/ML (CUTOFF=50)
[2018-12-26] MEDS ORDERED: GABAPENTIN 600 MG TAB PO SCH (06:00)
== END 2018-12-24 16:22 | disposition home or self-care (01) | DRG 558 ==
LOC: ED 09:26 → SUATTDRO 14:08 → 2E 14:08

== ENCOUNTER 2023-03-12 12:48 | Inpatient (IN) ==
--- OUTSIDE RECORDS SUMMARY | 2023-03-12 12:53 | External Medical Summary | Summary of Care ---
Author Name Unknown Organization [facility] Address [address] [place] [address] Phone [phone] Care Team Providers Care Disk Operator Name Role Phone Kathy Leger PA-C Primary Care Provider [phone] Reason for Visit * Reason Comments eRx-Medication Refill Encounter Details Date Type Department Care Team Description 12/18/2022 Refill [facility] [address] [place] [address] Kathy Leger PA-C [address] [place] [address] Encounter for long-term (current) use of medications*; Tobacco abuse; Dyslipidemia, goal LDL below 100; Asymptomatic bilateral carotid artery stenosis; Subclavian artery stenosis (HCC); PAD (peripheral artery disease) (HCC); HTN, goal below 140/90 Allergies Active Allergy Reactions Severity Noted Date Comments Fentanyl High 12/27/2018 Symptoms of stroke Fluoxetine 07/20/2021 trouble swallowing documented as of this encounter (statuses as of 12/19/2022) Medications Medication Sig Dispensed Refills Start Date End Date Status Aspirin 81 MG Tablet Take 81 mg by mouth daily. 0 Active Naproxen Sodium (ALEVE) 220 MG Tablet Take 1 Tab by mouth 2 times a day with morning and evening meals. H med 1 Tab 0 12/27/2018 Active Atorvastatin Calcium 40 MG Oral Tablet (Lipitor)Indicati ons:Tobacco abuse,Dyslipidemi a, goal LDL below 100,Asymptomatic bilateral carotid artery stenosis,Subclavi an artery stenosis (HCC),PAD (peripheral artery disease) (HCC) TAKE 1 TABLET BY MOUTH EVERY DAY 90 Tablet 0 09/22/2022 Active Cilostazol 100 MG Oral Tablet (Pletal)Indicatio ns:Tobacco abuse,Dyslipidemi a, goal LDL below 100,Asymptomatic bilateral carotid artery stenosis,Subclavi an artery stenosis (HCC),PAD (peripheral artery disease) (HCC) TAKE 1 TAB BY MOUTH 2 TIMES A DAY EITHER 30 MINS PRIOR OR 2 HRS AFTER MEALS. 180 Tablet 0 12/19/2022 Active Cilostazol 100 MG Oral Tablet (Pletal)Indicatio ns:Tobacco abuse,Dyslipidemi a, goal LDL below 100,Asymptomatic bilateral carotid artery stenosis,Subclavi an artery stenosis (HCC),PAD (peripheral artery disease) (HCC) TAKE 1 TAB BY MOUTH 2 TIMES A DAY EITHER 30 MINS PRIOR OR 2 HRS AFTER MEALS. 180 Tablet 0 09/24/2022 12/19/2022 Discontinued documented as of this encounter (statuses as of 12/19/2022) Active Problems Problem Noted Date Hypertensive left ventricular hypertroph y, without heart failure 12/27/2018 Dyslipidemia, goal LDL below 100 015 Tobacco abuse 05/11/2014 HTN, goal below 140/90 07/01/2013 Hearing loss 07/12/2005 FAM HX-DIABETES MELLITUS 07/12/2005 Family history of ischemic heart disease 07/12/2005 ADV EFF MED-BIOL SUB NOS 07/12/2005 ROTATOR CUFF SYND NOS 01/06/1999 Other affections of shoulder region, not elsewhere classified Overview: left--otcv meds-- on disability documented as of this encounter (statuses as of 12/19/2022) Resolved Problems Problem Noted Date Resolved Date ROUTINE MEDICAL EXAM 07/12/2005 07/20/2021 Elevated blood pressure, situational 12/09/2018 Overview: acute documented as of this encounter (statuses as of 12/19/2022) Immunizations Name Administration Dates Next Due TDAP (age 10 and older)(Boostrix) 06/20/2013 documented as of this encounter Social History Tobacco Use Types Packs/Day Years Used Date Smoking Tobacco: Every Day Cigarettes 1.5 33 Cigars Smokeless Tobacco: Never Comments:began at age 16 --n ow cutting odwn--trying to quit by age 50 Alcohol Use Standard Drinks/Week Comments Yes 0 (1 standard drink = 0.6 oz pur e alcohol) 12 pk daily Food Insecurity Answer Date Recorded Within the past 12 months, y ou worried that your food would run out before you got money to buy more. Never true 12/13/2018 Within the past 12 months, t he food you bought just didn't last and you didn't have money to get more. Never true 12/13/2018 Sex Assigned at Date Recorded Male 12/27/2018 3:02 PM E DT Job Start Date Occupation Industry Not on file Not on file Not on file documented as of this encounter Miscellaneous Notes * Telephone Encounter - SHAE Inman - 12/19/2022 2:56 PM EDT Received message from [facility] regarding patient needing appointment and labs. Placed call to patient toadvise. Left message on voicemail advising of required labs and to call back for an appointment. Thank you, Ajit [facility] [employer] 12/19/2022, 2:56 PM * Telephone Encounter - Hedy Canales RP - 12/19/2022 1:26 PM EDTSigned Prescriptions: Disp Refills Cilostazol 100 MG Oral Tablet (Pletal) 180 Ta*0 Sig: TAKE 1 TAB BY MOUTH 2 TIMES A DAY EITHER 30 MINS PRIOR OR 2 HRS AFTER MEALS. Authorizing Provider: KATHY LEGER User: HEDY CANALES * Telephone Encounter - Hedy Canales [facility] - 12/19/2022 1:22 PM EDT Provided 90 days supply with 0 refill. Per refill protocol patient should have Lipid panel, CBC, urine protein on file within past year. Reviewed AMP report, Care Gaps/Health Maintenance, medicationslist, and for any routine labs typically ordered for this patient. Lab orders placed. Please contact patient to schedule office visit with PRIMARY CARE and advise of labs ordered for blood draw AND URINE specimen (patient will have to be able to void to provide sample).. Recommend patient to fast if able for labs. Patient may still have water and regular medications. Advise to obtain labs before requesting the next refill. Last Visit: 07/20/2021 (in office), Visit date not found (telemedicine) Next Visit: Visit date not found Hedy Benjamin PharmD Clinical Pharmacist [facility] ([facility]) (formerly Telepharmacy). [phone] 12/19/2022, 1:26 PM documented in this encounter Plan of Treatment Scheduled Orders Name Type Priority Associated Diagnoses Orde r Schedule LIPID PANEL WITH DIRECT LDL IF TG IS HIGH Lab Routine Encounter for long-term (current) use of medications Expected: 12/26/2022 (Approximate), Expires: 12/20/2023 CBC Lab Routine Encounter for long-term (current) use of medications Expected: 12/26/2022 (Approximate), Expires: 12/20/2023 Health Maintenance Due Date Last Done Comments COVID-19 Vaccine (#1) 02/04/1956 Pneumococcal Vaccine: 65+ Years (1 - PCV) 08/03/1961 Albumin/Creatinine Ratio 08/03/1973 Hepatitis C Screening 08/03/1973 Cologuard 08/03/2000 Colonoscopy 08/03/2000 Colorectal Cancer Screening 08/03/2000 Fecal Occult Blood Test 08/03/2000 Sigmoidoscopy 08/03/2000 LUNG CANCER SCREENING - USE SMARTSET [id number] 08/03/2005 Zoster Vaccines (1 of 2) 08/03/2005 Depression Screening 12/14/2019 12/13/2018 AAA Screening 08/03/2020 Influenza Vaccine (FLU shot) (#1) 2022 GFR 01/09/2023 01/09/2022, 06/2 10/2020, 10/21/2019, Additional history exists DTaP,Tdap,and Td Vaccines (2 - Td or Tdap) 06/21/2023 06/20/2013 Lipid Panel 01/09/2027 01/09/2022, 08/11, 10/21/2019, Additional history exists GARDASIL-HPV IMMUNIZATION SERIES Aged Out No longer eligible based on patient's age to complete this topic Hepatitis B Aged Out No longer eligi ble based on patient's age to complete this topic MENINGOCOCCAL (MENACTRA/MENVEO) Aged Out No longer eligible based on patient's age to complete this topic documented as of this encounter Medical Devices Not on filedocumented as of this encounter Visit Diagnoses Diagnosis Encounter for long-term (current) use of medications- Primary Encounter for long-term (current) use of other medications Tobacco abuse Tobacco use disorder Dyslipidemia, goal LDL below 100 Other and unspecified hyperlipidemia Asymptomatic bilateral carotid artery stenosis Occlusion and stenosis of multiple and bilateral precerebral arteries without mention of cerebral infarction Subclavian artery stenosis (HCC) Stricture of artery PAD (peripheral artery disease) (HCC) Peripheral vascular disease, unspecified HTN, goal below 140/90 Unspecified essential hypertension documented in this encounter Care Teams Disk Operator Relationship Specialty Start Date End Date Kathy Leger PA-C [address], [place] [id number] PCP - General Physician Sign Painter Helper 07/20/21 documented as of this encounter
--- OUTSIDE RECORDS SUMMARY | 2023-03-12 12:53 | External Medical Summary | Summary of Care ---
Author Name Unknown Organization [facility] Address [address] [place] [address] Phone [phone] Care Team Providers Care Traffic Rate Clerk Name Role Phone Kathy Leger PA-C Primary Care Provider [phone] Reason for Visit * Reason Comments eRx-Medication Refill Encounter Details Date Type Department Care Team Description 12/22/2022 Refill [facility] [address] [place] [address] Kathy Leger PA-C [address] [place] [address] Tobacco abuse; Dyslipidemia, goal LDL below 100; Asymptomatic bilateral carotid artery stenosis; Subclavian artery stenosis (HCC); PAD (peripheral artery disease) (HCC) Allergies Active Allergy Reactions Severity Noted Date Comments Fentanyl High 12/27/2018 Symptoms of stroke Fluoxetine 07/20/2021 trouble swallowing documented as of this encounter (statuses as of 12/22/2022) Medications Medication Sig Dispensed Refills Start Date End Date Status Aspirin 81 MG Tablet Take 81 mg by mouth daily. 0 Active Naproxen Sodium (ALEVE) 220 MG Tablet Take 1 Tab by mouth 2 times a day with morning and evening meals. H med 1 Tab 0 12/27/2018 Active Cilostazol 100 MG Oral Tablet (Pletal)Indicatio ns:Tobacco abuse,Dyslipidemi a, goal LDL below 100,Asymptomatic bilateral carotid artery stenosis,Subclavi an artery stenosis (HCC),PAD (peripheral artery disease) (HCC) TAKE 1 TAB BY MOUTH 2 TIMES A DAY EITHER 30 MINS PRIOR OR 2 HRS AFTER MEALS. 180 Tablet 0 12/19/2022 Active Atorvastatin Calcium 40 MG Oral Tablet (Lipitor)Indicati ons:Tobacco abuse,Dyslipidemi a, goal LDL below 100,Asymptomatic bilateral carotid artery stenosis,Subclavi an artery stenosis (HCC),PAD (peripheral artery disease) (HCC) TAKE 1 TABLET BY MOUTH EVERY DAY 90 Tablet 0 12/22/2022 Active Atorvastatin Calcium 40 MG Oral Tablet (Lipitor)Indicati ons:Tobacco abuse,Dyslipidemi a, goal LDL below 100,Asymptomatic bilateral carotid artery stenosis,Subclavi an artery stenosis (HCC),PAD (peripheral artery disease) (HCC) TAKE 1 TABLET BY MOUTH EVERY DAY 90 Tablet 0 09/22/2022 12/22/2022 Discontinued documented as of this encounter (statuses as of 12/22/2022) Active Problems Problem Noted Date Hypertensive left [...] as of this encounter (statuses as of 12/22/2022) Resolved Problems Problem Noted Date Resolved Date ROUTINE MEDICAL EXAM 07/12/2005 07/20/2021 Elevated blood pressure, situational 12/09/2018 Overview: acute documented as of this encounter (statuses as of 12/22/2022) Immunizations Name Administration Dates Next Due TDAP [...] encounter Miscellaneous Notes * Telephone Encounter - Opal Garcia RPh - 12/22/2022 6:17 PM EDTSigned Prescriptions: Disp Refills Atorvastatin Calcium 40 MG Oral Tablet (Li*90 Tab*0 Sig: TAKE 1 TABLET BY MOUTH EVERY DAYAuthorizing Provider: KATHY LEGER User: OPAL GARCIA--- * Telephone Encounter - Opal Garcia RPh - 12/22/2022 6:16 PM EDT Recent attempt made to advise pt of due labs and OV. RX approved in the meantime. Thank you, Opal Garcia, PharmD Clinical Pharmacist [facility] ([facility]) (formerly Telepharmacy) [phone] 12/22/2022, 6:16 PM documented in this encounter Plan of Treatment Health Maintenance Due Date Last Done Comments COVID-19 Vaccine (#1) 02/04/1956 Pneumococcal Vaccine: 65+ Years (1 - PCV) 08/03/1961 Albumin/Creatinine Ratio 08/03/1973 Hepatitis C Screening 08/03/1973 Cologuard 08/03/2000 Colonoscopy 08/03/2000 Colorectal Cancer Screening 08/03/2000 Fecal Occult Blood Test 08/03/2000 Sigmoidoscopy 08/03/2000 LUNG CANCER SCREENING - USE SMARTSET [id number] 08/03/2005 Zoster Vaccines (1 of 2) 08/03/2005 Depression Screening 12/14/2019 12/13/2018 AAA Screening 08/03/2020 Influenza Vaccine (FLU shot) (#1) 2022 GFR 01/09/2023 01/09/2022, 08/11, 10/21/2019, Additional history exists DTaP,Tdap,and Td Vaccines [...] as of this encounter Visit Diagnoses Diagnosis Tobacco abuse Tobacco use disorder Dyslipidemia, goal LDL below 100 Other and unspecified hyperlipidemia Asymptomatic bilateral carotid artery stenosis Occlusion and stenosis of multiple and bilateral precerebral arteries without mention of cerebral infarction Subclavian artery stenosis (HCC) Stricture of artery PAD (peripheral artery disease) (HCC) Peripheral vascular disease, unspecified documented in this encounter Care Teams Traffic Rate Clerk Relationship Specialty Start Date End Date Kathy Leger PA-C [address] [place] [address] PCP - General Physician Rice Drier Operator 07/20/21 documented as of this encounter
--- OUTSIDE RECORDS SUMMARY | 2023-03-12 12:53 | External Medical Summary | Summary of Care ---
Author Name Unknown Organization [facility] Address [address] [place] [address] Phone [phone] Care Team Providers Care Product Assurance Engineer Name Role Phone Kathy Leger PA-C Primary Care Provider [phone] Reason for Visit * Reason Onset Date Comments Information 12/12/2022 AAA screening Encounter Details Date Type Department Care Team Description 12/12/2022 Telephone [facility] [address] [place] [address] Kathy Leger PA-C [address] [place] [address] Information (AAA screening ) Allergies Active Allergy Reactions Severity Noted Date Comments Fentanyl High 12/27/2018 Symptoms of stroke Fluoxetine 07/20/2021 trouble swallowing documented as of this encounter (statuses as of 12/14/2022) Medications Medication Sig Dispensed Refills Start Date End Date Status Aspirin 81 MG Tablet Take 81 mg by mouth daily. 0 Active Naproxen Sodium (ALEVE) 220 MG Tablet Take 1 Tab by mouth 2 times a day with morning and evening meals. H med 1 Tab 0 12/27/2018 Active Atorvastatin Calcium 40 MG Oral Tablet (Lipitor)Indications :Tobacco abuse,Dyslipidemia, goal LDL below 100,Asymptomatic bilateral carotid artery stenosis,Subclavian artery stenosis (HCC),PAD (peripheral artery disease) (HCC) TAKE 1 TABLET BY MOUTH EVERY DAY 90 Tablet 0 09/22/2022 Active Cilostazol 100 MG Oral Tablet (Pletal)Indications: Tobacco abuse,Dyslipidemia, goal LDL below 100,Asymptomatic bilateral carotid artery stenosis,Subclavian artery stenosis (HCC),PAD (peripheral artery disease) (HCC) TAKE 1 TAB BY MOUTH 2 TIMES A DAY EITHER 30 MINS PRIOR OR 2 HRS AFTER MEALS. 180 Tablet 0 09/24/2022 Active documented as of this encounter (statuses as of 12/14/2022) Active Problems Problem Noted Date Hypertensive left [...] as of this encounter (statuses as of 12/14/2022) Resolved Problems Problem Noted Date Resolved Date ROUTINE MEDICAL EXAM 07/12/2005 07/20/2021 Elevated blood pressure, situational 12/09/2018 Overview: acute documented as of this encounter (statuses as of 12/14/2022) Immunizations Name Administration Dates Next Due TDAP [...] encounter Miscellaneous Notes * Telephone Encounter - Nya Segura LPN - 12/14/2022 10:44 AM EDT I am calling to discuss some recommended testing. Our records indicate that you are due for a screening ultrasound of your aorta (this test checks for an enlargement of your aorta at the level of your abdomen). Have you had discussions with your provider about this?we've recently started evaluating your electronic health record to provide better screening and care for people at risk for disease of the aorta (the main artery that carries blood from your heart to the rest of your body). Based on your laboratory results and other clinical conditions, you may be at high risk for an abdominal aortic aneurysm (AAA, an enlargement of your lower aorta). This evaluation doesn't mean you have an AAA. It just means you should get screened at your earliest convenience by having an ultrasound. The screening results will tell your doctor if there's anything they need to examine more closely. Through advanced analysis/trending of this patient's history, they have been identified to have a positive AAA flag and are at a higher risk for Abdominal aortic aneurysm. This advanced analysis estimates the patient's risk for AAA. It only indicates that the patient's chances to have this condition are higher compared to most people. It does not indicate that the patient has this condition, but it is highly recommended the patient have a AAA screening for further evaluation. I have contacted the patient regarding scheduling a AAA screening. Outcomes: AAA screening ordered and scheduled * Telephone Encounter - Nya Segura LPN - 12/12/2022 10:41 AM EDT Through advanced analysis/trending of this patient's history, they have been identified to have a positive AAA flag and are at a higher risk for Abdominal aortic aneurysm. Pt will be contacted by a [facility] nurse to discuss AAA screening. documented in this encounter Plan of Treatment Upcoming Encounters Date Type Specialty Care Team Description 12/21/2022 Imaging Radiology Scheduled Orders Name Type Priority Associated Diagnoses Orde r Schedule US AAA SCREEN, RADIOLOGY Medical Imaging Routine Screening for AAA (abdominal aortic aneurysm) Expected: 12/14/2022, Expires: 12/15/2023 Health Maintenance Due Date Last Done Comments COVID-19 Vaccine (#1) 02/04/1956 Pneumococcal Vaccine: 65+ Years (1 - PCV) 08/03/1961 Albumin/Creatinine Ratio 08/03/1973 Hepatitis C Screening 08/03/1973 Cologuard 08/03/2000 Colonoscopy 08/03/2000 Colorectal Cancer Screening 08/03/2000 Fecal Occult Blood Test 08/03/2000 Sigmoidoscopy 08/03/2000 LUNG CANCER SCREENING - USE SMARTSET [id number] 08/03/2005 Zoster Vaccines (1 of 2) 08/03/2005 [...] as of this encounter Visit Diagnoses Diagnosis Screening for AAA (abdominal aortic aneurysm)- Primary Screening for other and unspecified cardiovascular conditions documented in this encounter Care Teams Product Assurance Engineer Relationship Specialty Start Date End Date Kathy Leger PA-C [address], [place] [id number] PCP - General Physician Dental Hygiene Teacher 07/20/21 documented as of this encounter
--- OUTSIDE RECORDS SUMMARY | 2023-03-12 12:54 | External Medical Summary | Summary of Care ---
Author Name Unknown Organization [facility] Address [address] [place] [address] Phone [phone] Care Team Providers Care Teacher Adventure Education Name Role Phone Kathy Leger PA-C Primary Care Provider [phone] Reason for Visit * Reason Comments eRx-Medication Refill Encounter Details Date Type Department Care Team Description 09/22/[address] [facility] [address] [place] [address] Kathy Leger PA-C [address] [place] [address] Tobacco abuse; Dyslipidemia, goal LDL below 100; Asymptomatic bilateral carotid artery stenosis; Subclavian artery stenosis (HCC); PAD (peripheral artery disease) ([facility]) Allergies Active Allergy Reactions Severity Noted Date Comments Fentanyl High 12/27/2018 Symptoms of stroke Fluoxetine 07/20/2021 trouble swallowing documented as of this encounter (statuses as of 09/24/2022) Medications Medication Sig Dispensed Refills Start Date [...] AFTER MEALS. 180 Tablet 0 09/24/2022 Active Cilostazol 100 MG Oral Tablet (Pletal)Indicatio ns:Tobacco abuse,Dyslipidemi a, goal LDL below 100,Asymptomatic bilateral carotid artery stenosis,Subclavi an artery stenosis (HCC),PAD (peripheral artery disease) (HCC) TAKE 1 TAB BY MOUTH 2 TIMES A DAY EITHER 30 MINS PRIOR OR 2 HRS AFTER MEALS. 180 Tablet 0 06/23/2022 09/24/2022 Discontinued documented as of this encounter (statuses as of 09/24/2022) Active Problems Problem Noted Date Hypertensive left [...] as of this encounter (statuses as of 09/24/2022) Resolved Problems Problem Noted Date Resolved Date ROUTINE MEDICAL EXAM 07/12/2005 07/20/2021 Elevated blood pressure, situational 12/09/2018 Overview: acute documented as of this encounter (statuses as of 09/24/2022) Immunizations Name Administration Dates Next Due TDAP [...] encounter Miscellaneous Notes * Telephone Encounter - Brenda Tapia RP - 09/24/2022 2:13 PM EDTSigned Prescriptions: Disp Refills Cilostazol 100 MG Oral Tablet (Pletal) 180 Ta*0 Sig: TAKE 1 TAB BY MOUTH 2 TIMES A DAY EITHER 30 MINS PRIOR OR 2 HRS AFTER MEALS.Authorizing Provider: KATHY LEGER User: BRENDA TAPIA * Telephone Encounter - Brenda Tapia RPh - 09/24/2022 2:13 PM EDT Pt is being contacted in previous encounter regarding OV. Last Visit: 07/20/2021 (in office), Visit date not found (telemedicine) Next Visit: Visit date not found Thank you, Brenda Tapia, PharmD Clinical Pharmacist [facility] ([facility]) (Formerly Telepharmacy) [phone] 09/24/2022, 2:13 PM documented in this encounter Plan of Treatment Health Maintenance Due Date Last Done Comments COVID-19 Vaccine (#1) 02/04/1956 Pneumococcal Vaccine: 65+ Years (1 - PCV) 08/03/1961 Albumin/Creatinine Ratio 08/03/1973 Hepatitis C Screening 08/03/1973 Cologuard 08/03/2000 Colonoscopy 08/03/2000 Colorectal Cancer Screening 08/03/2000 Fecal Occult Blood Test 08/03/2000 Sigmoidoscopy 08/03/2000 LUNG CANCER SCREENING - USE SMARTSET [id number] 08/03/2005 Zoster Vaccines (1 of 2) 08/03/2005 Depression Screening, Annual for Pts 12 and Over 12/14/2019 12/13/2018 ABDOMINAL AORTIC ANEURYSM (AAA) SCREENING 08/03/2020 Influenza Vaccine (FLU shot) (#1) 2022 [...] unspecified documented in this encounter Care Teams Teacher Adventure Education Relationship Specialty Start Date End Date Kathy Leger PA-C [address] [place] [address] PCP - General Physician Hitcher 07/20/21 documented as of this encounter
--- OUTSIDE RECORDS SUMMARY | 2023-03-12 12:54 | External Medical Summary | Summary of Care ---
Author Name Unknown Organization [facility] Address [address] [place] [address] Phone [phone] Care Team Providers Care Line Crewman Name Role Phone Kathy Leger PA-C Primary Care Provider [phone] Encounter Details Date Type Department Care Team Description 12/12/2022 External Data Patient Risk Medial Allergies Active Allergy Reactions Severity Noted Date Comments Fentanyl High 12/27/2018 Symptoms of stroke Fluoxetine 07/20/2021 trouble swallowing documented as of this encounter (statuses as of 12/12/2022) Medications Medication Sig Dispensed Refills Start Date [...] as of this encounter (statuses as of 12/12/2022) Active Problems Problem Noted Date Hypertensive left [...] as of this encounter (statuses as of 12/12/2022) Resolved Problems Problem Noted Date Resolved Date ROUTINE MEDICAL EXAM 07/12/2005 07/20/2021 Elevated blood pressure, situational 12/09/2018 Overview: acute documented as of this encounter (statuses as of 12/12/2022) Immunizations Name Administration Dates Next Due TDAP [...] on file documented as of this encounter Plan of Treatment Health Maintenance Due Date Last Done Comments COVID-19 Vaccine (#1) 02/04/1956 Pneumococcal Vaccine: 65+ Years (1 - PCV) 08/03/1961 Albumin/Creatinine Ratio 08/03/1973 Hepatitis C Screening 08/03/1973 Cologuard 08/03/2000 Colonoscopy 08/03/2000 Colorectal Cancer Screening 08/03/2000 Fecal Occult Blood Test 08/03/2000 Sigmoidoscopy 08/03/2000 LUNG CANCER SCREENING - USE SMARTSET [id number] 08/03/2005 Zoster Vaccines (1 of 2) 08/03/2005 [...] Not on filedocumented as of this encounter Care Teams Line Crewman Relationship Specialty Start Date End Date Kathy Leger PA-C [address], [place] [phone] PCP - General Physician Medication Administration Professional 07/20/21 documented as of this encounter
--- NOTE | 2023-03-12 13:40 | Emergency Department Note ---
Impression & Plan Acute respiratory failure with hypoxia, Hypertension, Elevated troponin, Alcohol abuse, Acute systolic heart failure, COPD (chronic obstructive pulmonary disease) ED Provider Note NAME: ANABELL SHAFFER AGE: 67 SEX: M ARRIVES VIA: Walk-In INFORMANT: Patient ED PROVIDER(S): Chava Prater MD CHIEF COMPLAINT: Shortness of breath PLAN: Disposition: Admit MEDICAL DECISION MAKING: The patient is a pleasant 67-year-old gentleman with a past medical history of alcohol abuse, hyperlipidemia, hypertension, everyday smoker he denies chest pain who presents to the emergency department via walk-in for worsening cough, congestion, shortness of breath with body aches over the past week or so. He denies nausea, vomiting, diarrhea or urinary symptoms. Patient reports that he was in contact with a family member who was diagnosed with influenza but was not around them long. Of note, the patient did arrive to emergency department during time of high volume, acuity and prolonged emergency department waiting times. Critical pathways initiated from triage. On my evaluation of the patient initially from the C pod subwait in the C pod and to room the patient is uncomfortable, mildly dyspneic with mild increased work of breathing but no acute distress, afebrile with heart rate in the 100s and blood pressure 150/100s. O2 saturation is 93% on room air. He appears clinically dry. Lungs with wheezes and rhonchi bilateral lower lung barone. Treatment initiated with IV hydration, Solu-Medrol, DuoNeb and guaifenesin given initial suspicion for pneumonia and COPD exacerbation. EKG without overt acute ischemia. Chest x-ray demonstrates diffuse interstitial thickening which is suggestive of pulmonary edema with pleural effusions. WBC, H/H and platelets within normal limits. There is no left shift. Chemistry without metabolic acidosis. Initial patient high-sensitivity troponin 123 with delta 3-hour high-sensitivity troponin 112, nonspecific. BNP is 2700 suggestive of new CHF. Procalcitonin is undetectable. UA without evidence of infection. Respiratory viral panel/BioFire was negative. CT of the chest was performed and was negative for pulmonary embolism. Further characterization of the patient's lung findings include interstitial pulmonary edema with small to moderate bilateral pleural effusions. Additional note is made of dependent groundglass opacities which favor atelectasis or pulmonary edema though infectious process is also considered but less likely. Moderate coronary artery calcification and mild cardiomegaly is seen. Upper lobe emphysema is also noted. On reevaluation following CT the patient developed increasing shortness of breath which suspect may have been provoked by lying supine for CT imaging and then ambulating to the bathroom. He was noted to desaturate to 84% on room air with increased work of breathing and tachypnea. On my examination the patient had diminished breath sounds at the bases with underlying rhonchi. Patient was subsequent placed on BiPAP with improved work of breathing. I did perform a limited bedside cardiac ultrasound which did suggest moderately reduced EF/new systolic heart failure. Patient was additionally treated with nitro paste for afterload reduction and IV Lasix ordered as well. The patient was additionally given 2 mg of IV Ativan for prophylaxis against alcohol withdrawal which the patient is at high risk to develop. Ceftriaxone and doxycycline also administered for possibility of superimposed pneumonia. Case was discussed with lFako Naranjo hospitalist, who will evaluate the patient for admission. Triage Nursing notes reviewed and agree them. Prior/external medical records reviewed Vital Signs: reviewed Differential diagnosis: Reactive airway disease, pneumonia, pneumothorax, COPD, CHF, infections, cardiac ischemia, pulmonary embolism, musculoskeletal, gastrointestinal, as well as other pathologies. ER treatment provided: See below. Diagnostics interpreted by me: ECG: Sinus tachycardic with PACs and PVCs, 116 bpm, nonspecific T wave abnormality, no overt ST elevation or depression, QTc 511, QRS 76. Cardiac Monitoring: An order for continuous cardiac monitoring was placed and demonstrated Sinus tachycardic with PACs and PVCs, 116 bpm. Laboratory studies: See below Imaging studies: See below Consultation(s): Case was discussed with Juanis Naranjo hospitalist, who will evaluate the patient for admission. HPI: The patient is a pleasant 67-year-old gentleman with a past medical history of alcohol abuse, hyperlipidemia, hypertension, everyday smoker he denies chest pain who presents to the emergency department via walk-in for worsening cough, congestion, shortness of breath with body aches over the past week or so. He denies nausea, vomiting, diarrhea or urinary symptoms. Patient reports that he was in contact with a family member who was diagnosed with influenza but was not around them long. ROS: See above HPI for pertinent positives & negatives. A total of 10 systems reviewed and were otherwise negative. VITALS:See Below PHYSICAL EXAMINATION: GENERAL: Awake, alert, uncomfortable-appearing, in no distress HENT: Normocephalic, atraumatic. Oropharynx with dry mucous membranes and otherwise unremarkable. EYES: Normal conjunctiva. Sclera non-icteric. NECK: Supple. No nuchal rigidity. FROM. No JVD. RESPIRATORY: Wheezes and rhonchi bilateral lower lung barone. Mildly dyspneic with mild increased work of breathing CARDIAC: Tachycardic rate, normal rhythm. Extremities warm and well perfused. Pulses equal. ABDOMEN: Soft, non-distended. No tenderness to palpation. No rebound or guarding. No masses. RECTAL: Deferred. MUSCULOSKELETAL: Chest examination reveals no tenderness. The back is symmetrical on inspection without obvious abnormality. There is no CVA tenderness to palpation. No joint edema. LOWER EXTREMITIES: Calves are equal size bilaterally and non-tender. No edema. No discoloration. NEURO: Normal sensorium. No sensory or motor deficits noted. SKIN: No rash or jaundice noted. ED COURSE: Critical Care: I have personally spent greater than 75 minutes of critical care time in the direct management of this patient. This includes bedside care, interpretation of diagnostic studies, and testing, discussion with consultants, patient, and family members, and other required patient management activities. This 75 minutes is in excess of all separately billable procedures. Chava Prater MD Past Med/Surg History Medical History (Updated 03/12/23 @ 20:08 by Chava Prater MD) Dyslipidemia Carotid artery stenosis PAD (peripheral artery disease) Depression Alcohol abuse Hypertension Chronic shoulder pain Surgical History History of vasectomy H/O arthroscopy of shoulder H/O inguinal hernia repair H/O hemorrhoidectomy Family History Mother Heart disease Hypertension Father Hypertension Social History Smoking Status: Current every day smoker Tobacco Type: Cigarettes Second Hand Exposure: No; Do You Dip or Chew Tobacco: No; Hx Alcohol Use: Yes Alcohol type: beer Alcohol type Comment: 8-10 beers/day Hx Substance Use: Yes (smokes pot nightly) Prescribed Medications: Marijuana Communication Ability: Effective Stucco Applicator Required: No Beliefs That Will Affect Care: None Current Living Situation: Alone Feels Safe at Home: Yes Assistive Devices: Walker Allergies Allergies Allergy/AdvReac Type Severity Reaction Status Date / Time fentanyl AdvReac Severe confused Verified 03/12/23 18:32 Home Meds Home Medications Medication Instructions Recorded Confirmed aspirin 81 mg tablet,delayed 81 mg PO DAILY ##0 03/09/15 03/12/23 release (Angi Low Dose Aspirin) naproxen sodium 220 mg tablet 220 mg PO BID #0 tabs 07/03/03/12/23 (Aleve) atorvastatin 40 mg tablet 40 mg PO DAILY 12/22/18 03/12/23 cilostazol 100 mg tablet 100 mg PO BID 12/22/18 03/12/23 Super Beets 3 tab PO DAILY 03/12/23 03/12/23 Results & Data (ED) Vital Signs Vital Signs - 24 hr 03/12/23 12:49 03/12/23 13:01 03/12/23 14:32 Temperature 36.5 C Temperature Source Temporal Artery Scan Pulse Rate 114 H Pulse Rate [Left Apical] 120 H Pulse Rhythm Regular Pulse Strength Normal Respiratory Rate 18 20 Respiratory Effort / Characteristics Non-Labored Spontaneous Respiratory Depth Normal Respiratory Pattern Blood Pressure 150/113 H Blood Pressure [Right Arm] 151/125 H Blood Pressure Mean 125 Blood Pressure Mean [Right Arm] 133 Pulse Oximetry 94 90 Oxygen Delivery Method Room Air Room Air Room Air Oxygen Flow Rate Fraction of Inspired Oxygen Sepsis Recent Fever Within 48 Hours No Sepsis New/Unexplained Change in Mental Status N/A Sepsis Action Taken by Nursing No Action Required Oxygen Flow Rate - Titration Pulse Oximetry Post Tiitration 03/12/23 14:39 03/12/23 14:44 03/12/23 16:11 Temperature Temperature Source Pulse Rate 112 H Pulse Rate [Left Apical] Pulse Rhythm Pulse Strength Respiratory Rate Respiratory Effort / Characteristics Respiratory Depth Respiratory Pattern Blood Pressure Blood Pressure [Right Arm] Blood Pressure Mean Blood Pressure Mean [Right Arm] Pulse Oximetry 90 86 L Oxygen Delivery Method Room Air Nasal Cannula Oxygen Flow Rate 4 Fraction of Inspired Oxygen Sepsis Recent Fever Within 48 Hours Sepsis New/Unexplained Change in Mental Status Sepsis Action Taken by Nursing Oxygen Flow Rate - Titration 6 Pulse Oximetry Post Tiitration 91 03/12/23 16:17 03/12/23 16:41 03/12/23 19:22 Temperature Temperature Source Pulse Rate 111 H 124 H Pulse Rate [Left Apical] Pulse Rhythm Pulse Strength Respiratory Rate 25 H Respiratory Effort / Characteristics Spontaneous Respiratory Depth Normal Respiratory Pattern Tachypnea Blood Pressure Blood Pressure [Right Arm] Blood Pressure Mean Blood Pressure Mean [Right Arm] Pulse Oximetry 87 L 97 Oxygen Delivery Method Non-rebreather Oxygen Flow Rate Fraction of Inspired Oxygen 60 Sepsis Recent Fever Within 48 Hours Sepsis New/Unexplained Change in Mental Status Sepsis Action Taken by Nursing Oxygen Flow Rate - Titration Pulse Oximetry Post Tiitration Laboratory Data Attestation: I reviewed the patient's lab results. 03/12/23 13:26 03/12/23 13:26 Lab Results 03/12/23 03/12/23 03/12/23 Range/Units 13:26 14:22 15:17 WBC 5.14 (4.8-10.8) K/ul RBC 4.52 L (4.70-6.10) M/uL Hgb 15.4 (14.0-18.0) g/dl Hct 44.9 (42.0-52.0) % MCV 99.3 (80.0-100.0) fL MCH 34.1 H (25.0-34.0) pg MCHC 34.3 (32.0-36.0) g/dL RDW Std Deviation 52.8 H (36.4-46.3) fL RDW Coeff of Cecilia 14.5 (11.5-14.5) % Plt Count 162 (130-400) K/uL MPV 9.8 (9.4-12.4) fL Immature Gran % (Auto) 0.4 % Neut % (Auto) 63.7 % Lymph % (Auto) 22.2 % [place] % (Auto) 10.9 % Eos % (Auto) 1.4 % Baso % (Auto) 1.4 % Neut # (Auto) 3.28 (1.40-6.50) K/uL Lymph # (Auto) 1.14 L (1.20-3.40) K/uL [place] # (Auto) 0.56 (0.11-0.59) K/uL Eos # (Auto) 0.07 (0.00-0.50) K/uL Baso # (Auto) 0.07 (0.00-0.20) K/uL Immature Gran # (Auto) 0.02 (0.01-0.20) K/uL Sodium 133 L (136-145) mmol/L Potassium 4.4 (3.5-5.1) mmol/L Chloride 100 (98-107) mmol/L Carbon Dioxide 23 (21-32) mmol/L Anion Gap 10 (3-11) BUN 18 (6-23) mg/dl Creatinine 1.01 (0.6-1.4) mg/dl Est Cr Clr Drug Dosing 66.4 ml/min Est GFR ( Amer) 88.8 Est GFR (Non-Af Amer) 76.6 BUN/Creatinine Ratio 17.8 (10-20) Glucose 101 H (70-99(Fasting)) mg/dl Lactate (0.4-2.0) mmol/L Calcium 9.3 (8.6-10.3) mg/dl Total Bilirubin 1.5 H (0.2-1.0) mg/dl AST 30 (13-39) U/L ALT 15 (7-52) U/L Alkaline Phosphatase 50 (34-104) U/L Troponin I High Sens 123.0 H* (0-20) pg/ml B-Natriuretic Peptide 2752 H (0-100) pg/ml Total Protein 7.1 (6.0-8.3) gm/dl Albumin 4.2 (3.4-5.0) gm/dl Globulin 2.9 (2.5-4.0) gm/dl Albumin/Globulin Ratio 1.4 (0.9-2) Procalcitonin < 0.05 (0-0.5) ng/ml Urine Color Yellow Urine Appearance Clear (Clear) Urine pH 5.5 (4.5-7.5) Ur Specific [place] 1.018 (1.000-1.030) Urine Protein Trace H (Negative) Urine Glucose (UA) Negative (Negative) Urine Ketones Trace H (Negative) Urine Blood Negative (Negative) Urine Nitrite Negative (Negative) Urine Bilirubin Negative (Negative) Urine Urobilinogen Negative (Negative) Ur Leukocyte Esterase Negative (Negative) Urine WBC (Auto) 1-5 (0-5) /hpf Urine RBC (Auto) 0-4 (0-4) /hpf U Hyaline Cast (Auto) 0 (0-5) /lpf U Epithel Cells (Auto) 0-5 (0-5) /lpf Urine Bacteria (Auto) Negative (Negative) Nasal Screen MRSA (PCR) (Negative) Ethyl Alcohol mg/dL < 10.0 (<10.0) mg/dl Adenovirus (PCR) Not Detected (NotDetected) B. pertussis DNA (PCR) Not Detected (NotDetected) B.parapertussis DNA PCR Not Detected (NotDetected) C. pneumoniae DNA (PCR) Not Detected (NotDetected) Coronavirus OC43 (PCR) Not Detected (NotDetected) Coronavirus HKU1 (PCR) Not Detected (NotDetected) Coronavirus 229E (PCR) Not Detected (NotDetected) SARS-CoV-2 (PCR) Not Detected (NotDetected) Coronavirus NL63 (PCR) Not Detected (NotDetected) Human Metapneumovir PCR Not Detected (NotDetected) Influenza Type A (PCR) Not Detected (NotDetected) Influenza Type B (PCR) Not Detected (NotDetected) M. pneumoniae (PCR) Not Detected (NotDetected) Parainfluenza 1 (PCR) Not Detected (NotDetected) Parainfluenza 2 (PCR) Not Detected (NotDetected) Parainfluenza 3 (PCR) Not Detected (NotDetected) Parainfluenza 4 (PCR) Not Detected (NotDetected) RSV (PCR) Not Detected (NotDetected) Entero/Rhino (PCR) Not Detected (NotDetected) 03/12/23 03/12/23 03/12/23 Range/Units 16:25 16:28 17:18 WBC (4.8-10.8) K/ul RBC (4.70-6.10) M/uL Hgb (14.0-18.0) g/dl Hct (42.0-52.0) % MCV (80.0-100.0) fL MCH (25.0-34.0) pg MCHC (32.0-36.0) g/dL RDW Std Deviation (36.4-46.3) fL RDW Coeff of Cecilia (11.5-14.5) % Plt Count (130-400) K/uL MPV (9.4-12.4) fL Immature Gran % (Auto) % Neut % (Auto) % Lymph % (Auto) % [place] % (Auto) % Eos % (Auto) % Baso % (Auto) % Neut # (Auto) (1.40-6.50) K/uL Lymph # (Auto) (1.20-3.40) K/uL [place] # (Auto) (0.11-0.59) K/uL Eos # (Auto) (0.00-0.50) K/uL Baso # (Auto) (0.00-0.20) K/uL Immature Gran # (Auto) (0.01-0.20) K/uL Sodium (136-145) mmol/L Potassium (3.5-5.1) mmol/L Chloride (98-107) mmol/L Carbon Dioxide (21-32) mmol/L Anion Gap (3-11) BUN (6-23) mg/dl Creatinine (0.6-1.4) mg/dl Est Cr Clr Drug Dosing ml/min Est GFR ( Amer) Est GFR (Non-Af Amer) BUN/Creatinine Ratio (10-20) Glucose (70-99(Fasting)) mg/dl Lactate 2.9 H* (0.4-2.0) mmol/L Calcium (8.6-10.3) mg/dl Total Bilirubin (0.2-1.0) mg/dl AST (13-39) U/L ALT (7-52) U/L Alkaline Phosphatase (34-104) U/L Troponin I High Sens 112.1 H* (0-20) pg/ml B-Natriuretic Peptide (0-100) pg/ml Total Protein (6.0-8.3) gm/dl Albumin (3.4-5.0) gm/dl Globulin (2.5-4.0) gm/dl Albumin/Globulin Ratio (0.9-2) Procalcitonin (0-0.5) ng/ml Urine Color Urine Appearance (Clear) Urine pH (4.5-7.5) Ur Specific [place] (1.000-1.030) Urine Protein (Negative) Urine Glucose (UA) (Negative) Urine Ketones (Negative) Urine Blood (Negative) Urine Nitrite (Negative) Urine Bilirubin (Negative) Urine Urobilinogen (Negative) Ur Leukocyte Esterase (Negative) Urine WBC (Auto) (0-5) /hpf Urine RBC (Auto) (0-4) /hpf U Hyaline Cast (Auto) (0-5) /lpf U Epithel Cells (Auto) (0-5) /lpf Urine Bacteria (Auto) (Negative) Nasal Screen MRSA (PCR) Negative (Negative) Ethyl Alcohol mg/dL (<10.0) mg/dl Adenovirus (PCR) (NotDetected) B. pertussis DNA (PCR) (NotDetected) B.parapertussis DNA PCR (NotDetected) C. pneumoniae DNA (PCR) (NotDetected) Coronavirus OC43 (PCR) (NotDetected) Coronavirus HKU1 (PCR) (NotDetected) Coronavirus 229E (PCR) (NotDetected) SARS-CoV-2 (PCR) (NotDetected) Coronavirus NL63 (PCR) (NotDetected) Human Metapneumovir PCR (NotDetected) Influenza Type A (PCR) (NotDetected) Influenza Type B (PCR) (NotDetected) M. pneumoniae (PCR) (NotDetected) Parainfluenza 1 (PCR) (NotDetected) Parainfluenza 2 (PCR) (NotDetected) Parainfluenza 3 (PCR) (NotDetected) Parainfluenza 4 (PCR) (NotDetected) RSV (PCR) (NotDetected) Entero/Rhino (PCR) (NotDetected) 03/12/23 Range/Units 18:08 WBC (4.8-10.8) K/ul RBC (4.70-6.10) M/uL Hgb (14.0-18.0) g/dl Hct (42.0-52.0) % MCV (80.0-100.0) fL MCH (25.0-34.0) pg MCHC (32.0-36.0) g/dL RDW Std Deviation (36.4-46.3) fL RDW Coeff of Cecilia (11.5-14.5) % Plt Count (130-400) K/uL MPV (9.4-12.4) fL Immature Gran % (Auto) % Neut % (Auto) % Lymph % (Auto) % [place] % (Auto) % Eos % (Auto) % Baso % (Auto) % Neut # (Auto) (1.40-6.50) K/uL Lymph # (Auto) (1.20-3.40) K/uL [place] # (Auto) (0.11-0.59) K/uL Eos # (Auto) (0.00-0.50) K/uL Baso # (Auto) (0.00-0.20) K/uL Immature Gran # (Auto) (0.01-0.20) K/uL Sodium (136-145) mmol/L Potassium (3.5-5.1) mmol/L Chloride (98-107) mmol/L Carbon Dioxide (21-32) mmol/L Anion Gap (3-11) BUN (6-23) mg/dl Creatinine (0.6-1.4) mg/dl Est Cr Clr Drug Dosing ml/min Est GFR ( Amer) Est GFR (Non-Af Amer) BUN/Creatinine Ratio (10-20) Glucose (70-99(Fasting)) mg/dl Lactate 1.4 (0.4-2.0) mmol/L Calcium (8.6-10.3) mg/dl Total Bilirubin (0.2-1.0) mg/dl AST (13-39) U/L ALT (7-52) U/L Alkaline Phosphatase (34-104) U/L Troponin I High Sens (0-20) pg/ml B-Natriuretic Peptide (0-100) pg/ml Total Protein (6.0-8.3) gm/dl Albumin (3.4-5.0) gm/dl Globulin (2.5-4.0) gm/dl Albumin/Globulin Ratio (0.9-2) Procalcitonin (0-0.5) ng/ml Urine Color Urine Appearance (Clear) Urine pH (4.5-7.5) Ur Specific [place] (1.000-1.030) Urine Protein (Negative) Urine Glucose (UA) (Negative) Urine Ketones (Negative) Urine Blood (Negative) Urine Nitrite (Negative) Urine Bilirubin (Negative) Urine Urobilinogen (Negative) Ur Leukocyte Esterase (Negative) Urine WBC (Auto) (0-5) /hpf Urine RBC (Auto) (0-4) /hpf U Hyaline Cast (Auto) (0-5) /lpf U Epithel Cells (Auto) (0-5) /lpf Urine Bacteria (Auto) (Negative) Nasal Screen MRSA (PCR) (Negative) Ethyl Alcohol mg/dL (<10.0) mg/dl Adenovirus (PCR) (NotDetected) B. pertussis DNA (PCR) (NotDetected) B.parapertussis DNA PCR (NotDetected) C. pneumoniae DNA (PCR) (NotDetected) Coronavirus OC43 (PCR) (NotDetected) Coronavirus HKU1 (PCR) (NotDetected) Coronavirus 229E (PCR) (NotDetected) SARS-CoV-2 (PCR) (NotDetected) Coronavirus NL63 (PCR) (NotDetected) Human Metapneumovir PCR (NotDetected) Influenza Type A (PCR) (NotDetected) Influenza Type B (PCR) (NotDetected) M. pneumoniae (PCR) (NotDetected) Parainfluenza 1 (PCR) (NotDetected) Parainfluenza 2 (PCR) (NotDetected) Parainfluenza 3 (PCR) (NotDetected) Parainfluenza 4 (PCR) (NotDetected) RSV (PCR) (NotDetected) Entero/Rhino (PCR) (NotDetected) Administered Medications Discontinued Medications Albuterol (Albut/Ipratrop 3mg/0.5mg Neb 3 Ml Vial) 3 ml NEB NOW STA; Protocol Stop: 03/12/23 14:07 Last Admin: 03/12/23 14:31 Dose: 3 ml Documented By: CARLENE Furosemide (Furosemide Inj 20 Mg/2 Ml Vial) 20 mg IV ONE ONE Stop: 03/12/23 17:28 Last Admin: 03/12/23 19:16 Dose: 20 mg Documented By: JOVANY Guaifenesin (Guaifenesin 600 Mg Tabcr) 1,200 mg PO NOW STA Stop: 03/12/23 14:10 Last Admin: 03/12/23 14:31 Dose: 1,200 mg Documented By: CARLENE Sodium Chloride (Nss) 1,000 mls @ 999 mls/hr IV .Q1H1M ONE Stop: 03/12/23 15:06 Last Infusion: 03/12/23 17:27 Dose: Infused Documented By: Admin: 03/12/23 14:31 Dose: 999 mls/hr Documented By: CARLENE Acetaminophen (Ofirmev) 1,000 mg in 100 mls @ 400 mls/hr IV NOW STA Stop: 03/12/23 14:20 Last Infusion: 03/12/23 14:46 Dose: Infused Documented By: Admin: 03/12/23 14:31 Dose: 400 mls/hr Documented By: CARLENE Ceftriaxone Sodium (Rocephin) 2,000 mg in 50 mls @ 100 mls/hr IV NOW STA Stop: 03/12/23 16:50 Last Infusion: 03/12/23 18:13 Dose: Infused Documented By: Admin: 03/12/23 17:22 Dose: 100 mls/hr Documented By: JOVANY Doxycycline Hyclate 100 mg/ (Dextrose) 100 mls @ 50 mls/hr IV NOW STA Stop: 03/12/23 18:20 Last Admin: 03/12/23 18:16 Dose: 50 mls/hr Documented By: JOVANY Ioversol (Optiray 320 125ml) 114 ml IV ONCE ONE Stop: 03/12/23 15:37 Last Admin: 03/12/23 15:37 Dose: 114 ml Documented By: ALYSSA Lorazepam (Lorazepam 1 Mg/1 Ml Syr Ed Inj Use) 2 mg IV ONE STA Stop: 03/12/23 18:14 Last Admin: 03/12/23 19:16 Dose: 2 mg Documented By: JOVANY Methylprednisolone (Methylprednisolone 125 Mg/2 Ml Vial) 125 mg IV NOW STA Stop: 03/12/23 14:10 Last Admin: 03/12/23 14:31 Dose: 125 mg Documented By: CARLENE Nitroglycerin (Nitroglycerin 2% Ointment 30gm Tube) 1 inch EXT NOW STA Stop: 03/12/23 18:14 Last Admin: 03/12/23 18:24 Dose: 1 inch Documented By: JOVANY Sodium Chloride (Sodium Chloride 0.65% Na Soln 45 Ml ([place])) 2 sprays NA NOW ONE Stop: 03/12/23 14:10 Last Admin: 03/12/23 14:32 Dose: 2 sprays Documented By: CARLENE Imaging Data Radiologist's Impression: Chest X-Ray 03/12/23 13:05 XR chest 1V not portable CLINICAL HISTORY: Dyspnea. COMPARISON STUDY: Chest radiograph December 22, 2018. FINDINGS: There is no pneumothorax. Small bilateral pleural effusions are present. Diffuse interstitial thickening is noted. No consolidation is identified. Cardiomediastinal silhouette is stable. IMPRESSION: 1. Diffuse interstitial thickening. This favors interstitial pulmonary edema. 2. Small bilateral pleural effusions. ACT 112: Negative or not required by law. Electronically signed by: Chu Avina M.D. 03/12/2023 1:57 PM Chest CTA 03/12/23 14:47 CT ANGIOGRAPHY OF THE CHEST, PULMONARY EMBOLUS PROTOCOL CLINICAL HISTORY: fever, sob, elevated troponin, r/o PE COMPARISON STUDY: Chest radiograph November 22, 2018 and March 12, 2023. TECHNIQUE: Following IV administration of 114 mL of Optiray, helical axial images of the chest were obtained utilizing the pulmonary embolus protocol. Maximal intensity projections and sagittal and coronal reformats were viewed on an independent 3D workstation. IV contrast was administered without complication. Automated exposure control was utilized for the study. A dose lowering technique was utilized adhering to the principles of ALARA. CT DOSE: 707.81 mGy.cm FINDINGS: No pulmonary emboli are identified although subsegmental pulmonary arteries within the lower lobes are suboptimally assessed due to respiratory motion. There is moderate coronary artery calcification and mild cardiomegaly. There is no pericardial effusion. Small to moderate bilateral pleural effusions are present. Moderate interlobular septal thickening is present. Central airways are patent. Lungs are suboptimally assessed due to respiratory motion. There is no pneumothorax. Upper lobe predominant emphysema is also noted. Dependent ground glass opacities within the lungs are present. No acute fractures within the bony thorax. Visualized portions of the upper abdomen demonstrate extensive vascular calcification. IMPRESSION: 1. No pulmonary emboli identified although subsegmental pulmonary arteries within the lower lobes suboptimally assessed due to respiratory motion. 2. Findings consistent with interstitial pulmonary edema with small to moderate bilateral pleural effusions. 3. Dependent ground glass opacities within lungs which favor atelectasis or alveolar pulmonary edema. An infectious process is considered less likely. 4. Moderate coronary artery calcification. Mild cardiomegaly. 5. Lungs assessed due to respiratory motion. Upper lobe predominant emphysema. ACT 112: Negative or not required by law. Electronically signed by: Chu Avina M.D. 03/12/2023 3:55 PM Discharge Plan Visit Data Chief Complaint: Shortness of Breath/Dyspnea Stated Complaint: SHALLOW BREATHING ED Provider: Chava Prater Discharge Problem: Acute respiratory failure with hypoxia, Hypertension, Elevated troponin, Alcohol abuse, Acute systolic heart failure, COPD (chronic obstructive pulmonary disease) Patient Disposition: Admitted As Inpatient Discharge Instructions Interventions: ED Discharge Assessment Last Done: 03/12/23 20:06 Discharge Problem: Hypertension Qualifiers: Hypertension type: unspecified Qualified Code(s): I10 - Essential (primary) hypertension
[2023-03-12 13:48] LABS: Basophils # (auto) 0.07 K/uL (0.00-0.20); Basophils % (auto) 1.4 %; Eosinophils # (auto) 0.07 K/uL (0.00-0.50); Eosinophils % (auto) 1.4 %; Hematocrit (blood only) 44.9 % (42.0-52.0); Hemoglobin 15.4 g/dl (14.0-18.0); Immature Granulocytes # (auto) 0.02 K/uL (0.01-0.20); Immature Granulocytes % (auto) 0.4 %; Lymphocytes # (auto) 1.14 K/uL (1.20-3.40); Lymphocytes % (auto) 22.2 %; Mean Corpuscular Hemoglobin 34.1 pg (25.0-34.0); Mean Corpuscular Hgb Conc 34.3 g/dL (32.0-36.0); Mean Corpuscular Volume 99.3 fL (80.0-100.0); Mean Platelet Volume 9.8 fL (9.4-12.4); Monocytes # (auto) 0.56 K/uL (0.11-0.59); Monocytes % (auto) 10.9 %; Neutrophils # (auto) 3.28 K/uL (1.40-6.50); Neutrophils % (auto) 63.7 %; Platelet Count 162 K/uL (130-400); RDW Coefficient of Variation 14.5 % (11.5-14.5); RDW Standard Deviation 52.8 fL (36.4-46.3); Red Blood Count 4.52 M/uL (4.70-6.10); White Blood Count 5.14 K/ul (4.8-10.8)
--- NOTE | 2023-03-12 13:59 | XRay Report ---
XR chest 1V not portable CLINICAL HISTORY: Dyspnea. COMPARISON STUDY: Chest radiograph December 22, 2018. FINDINGS: There is no pneumothorax. Small bilateral pleural effusions are present. Diffuse interstiti al thickening is noted. No consolidation is identified. Cardiomediastinal silhouette is stable. IMPRESSION: 1. Diffuse interstitial thickening. This favors interstitial pulmonary edema. 2. Small bilateral pleural effusions. ACT 112: Negative or not required by law. Electronically signed by: Chu Avina M.D. 03/12/2023 1:57 PM
[2023-03-12] MEDS ORDERED: SODIUM CHLORIDE 0.9% 1,000 ML IV ONE (14:06)
[2023-03-12] MEDS ORDERED: ALBUT/IPRATROP 3MG/0.5MG NEB 3 ML VIAL NEB STA (14:06)
[2023-03-12] MEDS ORDERED: ACETAMINOPHEN 1,000 MG/100 ML VIAL IV STA (14:06)
[2023-03-12] MEDS ORDERED: SODIUM CHLORIDE 0.65% NA SOLN 45 ML (OCEAN) ONE (14:09)
[2023-03-12] MEDS ORDERED: methylPREDNISolone 125 MG/2 ML VIAL IV STA (14:09)
[2023-03-12] MEDS ORDERED: guaiFENesin 600 MG TABCR PO STA (14:09)
[2023-03-12 14:29] LABS: Adenovirus PCR Not Detected (NotDetected); Bordetella parapertussis PCR Not Detected (NotDetected); Bordetella pertussis PCR Not Detected (NotDetected); Chlamydia pneumoniae PCR Not Detected (NotDetected); Coronavirus 229E PCR Not Detected (NotDetected); Coronavirus CoV-2 (COVID19)PCR Not Detected (NotDetected); Coronavirus HKU1 PCR Not Detected (NotDetected); Coronavirus NL63 PCR Not Detected (NotDetected); Coronavirus OC43PCR Not Detected (NotDetected); Human Metapneumovirus PCR Not Detected (NotDetected); Influenza A PCR Not Detected (NotDetected); Influenza B PCR Not Detected (NotDetected); Mycoplasma pneumoniae PCR Not Detected (NotDetected); Parainfluenza Virus 1 PCR Not Detected (NotDetected); Parainfluenza Virus 2 PCR Not Detected (NotDetected); Parainfluenza Virus 3 PCR Not Detected (NotDetected); Parainfluenza Virus 4 PCR Not Detected (NotDetected); Respiratory Syncytial VirusPCR Not Detected (NotDetected); Rhinovirus/Enterovirus PCR Not Detected (NotDetected)
--- NOTE | 2023-03-12 14:50 | Electrocardiogram Report ---
Test Reason : Blood Pressure : / mmHG Vent. Rate : 116 BPM Atrial Rate : 108 BPM P-R Int : 152 ms QRS Dur : 076 ms QT Int : 368 ms P-R-T Axes : 067 036 090 degrees QTc Int : 511 ms Sinus rhythm with frequent Premature atrial complexes Premature ventricular complexes Diffuse Minor Nonspecific T wave abnormality Abnormal ECG When compared with ECG of 24-DEC-2018 06:54, Premature ventricular complexes now present Confirmed by Fabien Rodríguez ([id number]) on 03/12/2023 2:50:04 PM Referred By: Confirmed By:Fabien Rodríguez
[2023-03-12 14:56] LABS: BUN Creatinine Ratio 17.8 (10-20); Creatinine Clr Calc Pharmacy 66.4 ml/min; Est GFR (African American) 88.8; Est GFR (Non-African American) 76.6; Potassium 4.4 mmol/L (3.5-5.1)
[2023-03-12 14:57] LABS: Albumin Globulin Ratio 1.4 (0.9-2); Albumin Level 4.2 gm/dl (3.4-5.0); Bilirubin,Total 1.5 mg/dl (0.2-1.0); Calcium 9.3 mg/dl (8.6-10.3); Globulin 2.9 gm/dl (2.5-4.0); Total Protein 7.1 gm/dl (6.0-8.3)
[2023-03-12 15:34] LABS: Appearance Urine Clear (Clear); Bacteria Urine Automated Negative (Negative); Bilirubin Urine Negative (Negative); Blood Urine Negative (Negative); Cast Urine Automated 0 /lpf (0-5); Color Urine Yellow; Epithelial Cell Urine Auto 0-5 /lpf (0-5); Glucose Urine UA Negative (Negative); Ketones Urine Trace (Negative); Leukocyte Esterase Urine Negative (Negative); Nitrite Urine Negative (Negative); Protein Urine Trace (Negative); RBC Urine Automated 0-4 /hpf (0-4); Specific Gravity Urine 1.018 (1.000-1.030); Urobilinogen Urine Negative (Negative); pH Urine 5.5 (4.5-7.5)
[2023-03-12] MEDS ORDERED: OPTIRAY 320 125ml IV ONE (15:36)
--- NOTE | 2023-03-12 15:57 | CT Scan Report ---
CT ANGIOGRAPHY OF THE CHEST, PULMONARY EMBOLUS PROTOCOL CLINICAL HISTORY: fever, sob, elevated troponin, r/o PE COMPARISON STUDY: Chest radiograph November 22, 2018 and March 12, 2023. TECHNIQUE: Following IV administration of 114 mL of Optiray, helical axial images of the chest were o btained utilizing the pulmonary embolus protocol. Maximal intensity projections and sagittal and cor onal reformats were viewed on an independent 3D workstation. IV contrast was administered without co mplication. Automated exposure control was utilized for the study. A dose lowering technique was ut ilized adhering to the principles of ALARA. CT DOSE: 707.81 mGy.cm FINDINGS: No pulmonary emboli are identified although subsegmental pulmonary arteries within the low er lobes are suboptimally assessed due to respiratory motion. There is moderate coronary artery calci fication and mild cardiomegaly. There is no pericardial effusion. Small to moderate bilateral pleural effusions are present. Moderate interlobular septal thickening is present. Central airways are paten t. Lungs are suboptimally assessed due to respiratory motion. There is no pneumothorax. Upper lobe pr edominant emphysema is also noted. Dependent ground glass opacities within the lungs are present. No acute fractures within the bony thorax. Visualized portions of the upper abdomen demonstrate extensiv e vascular calcification. IMPRESSION: 1. No pulmonary emboli identified although subsegmental pulmonary arteries within the lower lobes sub optimally assessed due to respiratory motion. 2. Findings consistent with interstitial pulmonary edema with small to moderate bilateral pleural eff usions. 3. Dependent ground glass opacities within lungs which favor atelectasis or alveolar pulmonary edema. An infectious process is considered less likely. 4. Moderate coronary artery calcification. Mild cardiomegaly. 5. Lungs assessed due to respiratory motion. Upper lobe predominant emphysema. ACT 112: Negative or not required by law. Electronically signed by: Chu Avina M.D. 03/12/2023 3:55 PM
[2023-03-12] MEDS ORDERED: cefTRIAXone SODIUM 2,000 MG/50 ML BAG IV STA (16:21)
[2023-03-12] MEDS ORDERED: DOXYCYCLINE HYCLATE 100 MG in DEXTROSE 5% MINI-B 100 ML IV STA (16:21)
[2023-03-12] MEDS ORDERED: FUROSEMIDE INJ 20 MG/2 ML VIAL IV ONE (17:27)
--- NOTE | 2023-03-12 17:53 | History & Physical Report ---
Date of Service March 12, 2023 Assessment & Plan (1) Acute systolic heart failure: Plan: Acute onset, possibly precipitated by underlying alcoholism, or dietary indiscretion as patient reports eating [place] dinner 5 nights in a row. Although he avidly reports not adding sodium to food, this food was made by someone else and may have been heavy in sodium. No apparent ACS clinically. Does not appear to have a pneumonia. [employer] resp panel was negative. No wheezing on exam and no cough or sputum changes present to suggest COPD exacerbation. He did undergo a CT chest with contrast which ruled out pulmonary embolus. Chest CT also revealed interstitial pulmonary edema with small to moderate bilateral pleural effusions consistent with acute heart failure exacerbation. BNP is elevated. He was placed on BiPAP for breathing support and confirmed that he is a DNR/DNI. Cali catheter was placed in the ER and Lasix 20 mg IV was given to this Lasix maria ines patient. Monitor strict ins and outs. After a few hours he has 1L out. Continue low-salt diet. Daily standing weights, echocardiogram, cardiac consult. (2) Smoking: Plan: Smoking cessation strongly recommended. Nicotine patch was declined by patient. (3) PAD (peripheral artery disease): Plan: Chronic stable, patient is on Pletal and has exercise-induced claudication regularly. Again smoking cessation strongly encouraged. Continue home medications. (4) Elevated troponin: Plan: Doubt ACS without chest pain or EKG changes consistent with ischemia. Likely demand ischemia in setting of acute heart failure. (5) Alcohol abuse: Plan: Heavy alcohol use marijuana use and smoking. Gabapentin started to prevent withdrawal symptoms while admitted. Patient is fine with this. Ativan as needed for withdrawal symptoms. Thiamine and folate replacement ordered. (6) Hypertension: Plan: Patient is not on medications. Is unclear if this is situational. Continue to monitor blood pressure closely. If ejection fraction is confirmed to be reduced on echocardiogram, he will ultimately need guideline directed medical therapy including antihypertensives. (7) Depression: Plan: Per history, appears stable. Patient not on medications. DVT proph: Lovenox DNR/DNI Dispo-PCU I spent a total [id number] coordinating, documenting, and providing care for this patient excluding time spent in the performance of separately billed services [facility] History of Present Illness Chief Complaint: SOB/dyspnea Primary Care Provider: NO PCP 67 yo M with acute shortness of breath in the last 24 hours and progressive shortness of breath over the last week. He denies any chest pain. Reports lower leg pain without swelling for the past week. Has known history of PAD on Pletal. He also reports taking persistent naproxen to 20 mg twice daily since 2018. His exercise tolerance has gone down. Denies any significant cough fevers or chills. Patient is a smoker and heavy drinker. He is amenable to taking gabapentin to prevent withdrawal while admitted. He declines a nicotine patch. He is on super beet supplementation. Per ER doctor who did a bedside ultrasound, it appears the EF is reduced. Cali catheter and Lasix as well as Nitropaste was placed in the ER. Patient was hypertensive with a blood pressure of 151/125. He also smokes marijuana each night. Reports insomnia in the last few nights secondary to pain in his legs and difficulty breathing Allergies Allergy/AdvReac Type Severity Reaction Status Date / Time fentanyl AdvReac Severe confused Verified 03/12/23 18:32 Home Medications Medication Instructions Recorded Confirmed Type aspirin 81 mg tablet,delayed 81 mg PO DAILY ##0 03/09/15 03/12/23 History release (Angi Low Dose Aspirin) naproxen sodium 220 mg tablet 220 mg PO BID #0 tabs 07/04/15 03/12/23 History (Aleve) atorvastatin 40 mg tablet 40 mg PO DAILY 12/22/18 03/12/23 History cilostazol 100 mg tablet 100 mg PO BID 12/22/18 03/12/23 History Super Beets 3 tab PO DAILY 03/12/23 03/12/23 History Past Med/Surg History Medical History Dyslipidemia Carotid artery stenosis PAD (peripheral artery disease) Depression Alcohol abuse Hypertension Chronic shoulder pain Surgical History History of vasectomy H/O arthroscopy of shoulder H/O inguinal hernia repair H/O hemorrhoidectomy Family History Mother Heart disease Hypertension Father Hypertension Social History Smoking Status: Current every day smoker Tobacco Type: Cigarettes Second Hand Exposure: No; Do You Dip or Chew Tobacco: No; Hx Alcohol Use: Yes Alcohol type: beer Alcohol type Comment: 8-10 beers/day Hx Substance Use: Yes (smokes pot nightly) Prescribed Medications: Marijuana Communication Ability: Effective [employer] Required: No Beliefs That Will Affect Care: None Current Living Situation: Alone Feels Safe at Home: Yes Assistive Devices: Walker Physical Exam Physical Exam: CONSTITUTIONAL: WNWD, vitals as above, on BIPAP, NAD, cannot lay supine EYES: normal conjunctivae, no scleral icterus ENT: external ear and nose normal, NECK: trachea midline RESPIRATORY: clear to auscultation bilaterally, no crackles, rales or wheezes, increased respiratory effort with minimal exertion. CARDIOVASCULAR: regular rate and rhythm, S1 and 2 heard without murmurs, gallops or rubs, + JVD, no peripheral edema CHEST: inspection of chest was normal GASTROINTESTINAL: soft, nontender, ND, no guarding MUSCULOSKELETAL: strength 5/5 throughout, head is normocephalic and atraumatic SKIN: warm and dry NEUROLOGIC: CN 2-12 grossly intact, no sensory deficit, normal cognition, normal speech, no tremor PSYCHIATRIC: alert cooperative and oriented to person, place and time. Results & Data Results & Data Vital Signs (Past 12 Hours) Vital Signs Temp Pulse Pulse Resp BP BP Pulse Ox 03/12/23 16:41 111 H 25 H 97 03/12/23 16:17 87 L 03/12/23 16:11 86 L 03/12/23 14:44 90 03/12/23 14:39 112 H 03/12/23 14:32 120 H 20 151/125 H 90 03/12/23 13:01 36.5 C 114 H 18 150/113 H 94 03/12/23 12:49 O2 Del Method O2 Flow Rate FiO2 03/12/23 16:41 60 03/12/23 16:17 Non-rebreather 03/12/23 16:11 Nasal Cannula 4 03/12/23 14:44 Room Air 03/12/23 14:39 03/12/23 14:32 Room Air 03/12/23 13:01 Room Air 03/12/23 12:49 Room Air Laboratory Results Short CBC 03/12/23 Range/Units 13:26 WBC 5.14 (4.8-10.8) K/ul Hgb 15.4 (14.0-18.0) g/dl Hct 44.9 (42.0-52.0) % Plt Count 162 (130-400) K/uL BMP 03/12/23 13:26 Sodium 133 L Potassium 4.4 Chloride 100 Carbon Dioxide 23 BUN 18 Creatinine 1.01 Glucose 101 H Calcium 9.3 Liver Function 03/12/23 Range/Units 13:26 Total Bilirubin 1.5 H (0.2-1.0) mg/dl AST 30 (13-39) U/L ALT 15 (7-52) U/L Alkaline Phosphatase 50 (34-104) U/L Albumin 4.2 (3.4-5.0) gm/dl Urine 03/12/23 Range/Units 15:17 Urine Color Yellow Urine Appearance Clear (Clear) Urine pH 5.5 (4.5-7.5) Ur Specific Lily 1.018 (1.000-1.030) Urine Protein Trace H (Negative) Urine Glucose (UA) Negative (Negative) Diagnostic Findings Chest X-Ray 03/12/23 13:05 XR chest 1V not portable CLINICAL HISTORY: Dyspnea. COMPARISON STUDY: Chest radiograph December 22, 2018. FINDINGS: There is no pneumothorax. Small bilateral pleural effusions are present. Diffuse interstitial thickening is noted. No consolidation is identified. Cardiomediastinal silhouette is stable. IMPRESSION: 1. Diffuse interstitial thickening. This favors interstitial pulmonary edema. 2. Small bilateral pleural effusions. ACT 112: Negative or not required by law. Electronically signed by: Chu Avina M.D. 03/12/2023 1:57 PM Chest CTA 03/12/23 14:47 CT ANGIOGRAPHY OF THE CHEST, PULMONARY EMBOLUS PROTOCOL CLINICAL HISTORY: fever, sob, elevated troponin, r/o PE COMPARISON STUDY: Chest radiograph November 22, 2018 and March 12, 2023. TECHNIQUE: Following IV administration of 114 mL of Optiray, helical axial images of the chest were obtained utilizing the pulmonary embolus protocol. Maximal intensity projections and sagittal and coronal reformats were viewed on an independent 3D workstation. IV contrast was administered without complication. Automated exposure control was utilized for the study. A dose lowering technique was utilized adhering to the principles of ALARA. CT DOSE: 707.81 mGy.cm FINDINGS: No pulmonary emboli are identified although subsegmental pulmonary arteries within the lower lobes are suboptimally assessed due to respiratory motion. There is moderate coronary artery calcification and mild cardiomegaly. There is no pericardial effusion. Small to moderate bilateral pleural effusions are present. Moderate interlobular septal thickening is present. Central airways are patent. Lungs are suboptimally assessed due to respiratory motion. There is no pneumothorax. Upper lobe predominant emphysema is also noted. Dependent ground glass opacities within the lungs are present. No acute fractures within the bony thorax. Visualized portions of the upper abdomen demonstrate extensive vascular calcification. IMPRESSION: 1. No pulmonary emboli identified although subsegmental pulmonary arteries within the lower lobes suboptimally assessed due to respiratory motion. 2. Findings consistent with interstitial pulmonary edema with small to moderate bilateral pleural effusions. 3. Dependent ground glass opacities within lungs which favor atelectasis or patricia eolar pulmonary edema. An infectious process is considered less likely. 4. Moderate coronary artery calcification. Mild cardiomegaly. 5. Lungs assessed due to respiratory motion. Upper lobe predominant emphysema. ACT 112: Negative or not required by law. Electronically signed by: Chu Avina M.D. 03/12/2023 3:55 PM Code Status & VTE Plan VTE Prophylaxis Plan VTE Prophylaxis will be ordered: Yes
[2023-03-12] MEDS ORDERED: NITROGLYCERIN 2% OINTMENT 30GM TUBE EXT STA (18:13)
[2023-03-12] MEDS ORDERED: LORazepam 1 MG/1 ML SYR ED Inj Use IV STA (18:13)
[2023-03-12] MEDS ORDERED: ACETAMINOPHEN 325 MG TAB PO PRN (20:06)
[2023-03-12] MEDS ORDERED: POLYETHYLENE (MIRALAX) 17 GM PACK PO PRN (20:06)
[2023-03-12] MEDS ORDERED: GABAPENTIN 600 MG TAB PO ONE (21:12)
[2023-03-12] MEDS ORDERED: GABAPENTIN 1200MG ALCOHOL WITHDRAWAL LOAD PO STA (21:12)
[2023-03-12] MEDS ORDERED: LORazepam 1 MG TAB PO PRN (21:12)
[2023-03-12 21:25] LABS: Amphetamines+Metham, Urine Neg (Neg); Barbiturates, Urine Neg (Neg); Benzodiazepine, Urine Neg (Neg); Cocaine, Urine Neg (Neg); MDMA (Ecstacy), Urine Neg (Neg); Marijuana, Urine Neg (Neg); Methadone, Urine Neg (Neg); Opiate, Urine Neg (Neg); Phencyclidine, Urine Neg (Neg)
[2023-03-12] MEDS: FOLIC ACID 1 MG in SYRINGE 9.8 ML IV SCH (22:15)
[2023-03-12] MEDS: THIAMINE HCL 100 MG in SYRINGE 9 ML IV SCH (22:15)
[2023-03-12] MEDS: cilostazoL 100 MG TAB PO SCH (23:28)
[2023-03-12] MEDS: ENOXAPARIN INJ 40 MG/0.4 ML SYR SQ SCH (23:31)
--- NOTE | 2023-03-13 00:16 | Communication Note ---
Date of Service: March 13, 2023 Pt demanding to be taken off bipap per nursing and to be fed. Pt was seen and it was communicated that he was made NPO for possible cardiac procedure. Pt stated that he needed to be fed and did not want to hungry. Pt taken off bipap and diet order was placed after explaining risks to the pt. He verbalized understanding and agreement. later notified by nursing that pt was significantly tachycardic and hypertensive. Pt was then agreeable to going back on bipap.
[2023-03-13 00:17] LABS: Base Excess VBG -1.4 mEq/L; HCO3 VBG 23 mmol/L; Oxygen Saturation VBG < 60.0 %; PCO2 VBG 36 mmHg (38-50); PO2 VBG 30 mmHg; pH VBG 7.41 (7.36-7.41)
[2023-03-13 04:55] LABS: Hematocrit (blood only) 40.5 % (42.0-52.0); Hemoglobin 13.9 g/dl (14.0-18.0); Mean Corpuscular Hemoglobin 33.8 pg (25.0-34.0); Mean Corpuscular Hgb Conc 34.3 g/dL (32.0-36.0); Mean Corpuscular Volume 98.5 fL (80.0-100.0); Mean Platelet Volume 10.4 fL (9.4-12.4); Platelet Count 155 K/uL (130-400); RDW Coefficient of Variation 14.3 % (11.5-14.5); Red Blood Count 4.11 M/uL (4.70-6.10); White Blood Count 4.79 K/ul (4.8-10.8)
[2023-03-13 05:03] LABS: BUN Creatinine Ratio 20.2 (10-20); Calcium 7.9 mg/dl (8.6-10.3); Chol HDL Ratio 2.1 (0-5); Creatinine Clr Calc Pharmacy 58.8 ml/min; Est GFR (African American) 76.7 ml/min; Est GFR (Non-African American) 66.2 ml/min; Magnesium 1.9 mg/dl (1.7-2.4)
[2023-03-13] MEDS ORDERED: Nursing to Pharmacy Communication STA (06:04)
[2023-03-13 07:39] LABS: Estimated Average Glucose 108 mg/dl; Hemoglobin A1C 5.4 % (4.5-5.6)
--- NOTE | 2023-03-13 08:31 | Cardiology Consultation ---
Date of Consultation March 13, 2023 Assessment & Plan (1) Acute respiratory failure with hypoxia: (2) Acute systolic heart failure: (3) Elevated troponin: (4) COPD (chronic obstructive pulmonary disease): (5) PAD (peripheral artery disease): (6) Dyslipidemia: (7) Hypertension: (8) Alcohol abuse: Plan Assessment: 67 year old male presenting with one week of progressively worsening shortness of breath and lower extremity edema. 1. Acute respiratory failure with hypoxia 2. Acute systolic Heart failure 3. Elevated Troponin 4. COPD 5. PAD 6. Dyslipidemia 7. HTN 8. Alcohol abuse. Plan: 1. Acute respiratory failure with hypoxia 2. Acute systolic Heart failure 3. Elevated Troponin -New dyspnea likely multifactorial given patient's longstanding history of COPD with active tobacco use. -EKG with non-specific T wave abnormality, but not STEMI criteria. Same findi ngs have been dated back to 2019, but patient has never had a complete ischemic workup. -Bedside echo concerning for severe LV dysfunction, not seen on last echo from 2019. Complete echocardiogram pending to assess LVEF, overall structure and function. -remains chest pain free. -Elevated troponin partially in response to suggestive heart failure, which patient has responded to IV diuresis. Concern for new systolic dysfunction and possible underlying ischemia. Awating echo. -NPO at this time to determine if further ischemic work up is warrented pending echocardiogram. -Patient appears to have responded well to IV diuresis. continue Furosemide 20mg IV BID at this time with close montioring of renal function as well as maintaining serum K 4.0 and magnesium 2.0 in light of likely ETOH withdrawl. -Bipap as managed per primary team as appropriate. 4. COPD: -contributing factor to his acute respiratory failure. -Continued management per primary team. -Encourage smoking cessation, although patient is not interested at this time. 5. PAD: -chronic with multiple risk factors. -No acute or concerning physical exam findings. -Continue Pletal 100mg PO BID as per home regimen. 6. Dyslipidemia: -Continue Atorvastatin 40mg PO Daily 7. Hypertension: -BP at target per review of records at bedside. -Continue with Furosemide at current regimen. -Awaiting echocardiogram 8. Alcohol Abuse: -patient endorses 10 beers per day. Longstanding -Continued management per primary team with concerns of possible detox -Continue with Gabapentin regimen in acute setting as well as Thiamine and electrolyte supplementation Case has been discussed with Dr. Calix. Further recommendations regarding plan of care as per his assessment. I spent a total of 30 minutes on the date of service in preparation, delivery, documentation of the care provided to the patient excluding any time spent in the performance of separately billed services. ALBERT Anthony [facility] Cardiology [facility] Supervising Physician Co-Signing Physician Notes Patient was seen and personally examined. Currently denies any chest pains. Does feel less respiratory distress since admission last night and diuresis. Chest x-ray today still with persistent pulmonary edema Echocardiogram with mild to moderate diffuse LV dysfunction EF 40-45% without segmental abnormality Issues and plans as above. Currently improved clinically no history of chest pain or angina although troponins elevated and LV dysfunction noted. High risk for underlying ischemic heart disease. Patient previously has declined interventions for peripheral vascular disease and carotid artery disease May warrant coronary angiography though if patient unwilling to consider interventions would not pursue Tentative procedure made Will treat underlying heart failure. Metoprolol succinate 12.5 mg added for heart rate and blood pressure control Furosemide additional 40 mg IV given now and increase to 40 mg IV twice per day Ultimate goal medical optimization. Resume ADDY inhibitor once hemodynamically stable Already on aspirin and statin. History of Present Illness Reason for Consultation: Acute respiratory failure; ? heart failure Requesting Physician: [facility] hospitalist Attending Physician: Isabelle Elizabeth DO History of Present Illness Patient is a 67 year-old male that presented to the ED with complaints shortness of breath that started approximately one week ago and has gotten progressively worse prompting his presentation. At the time of initial ER presentation he also endorses bilateral lower leg pain with swelling over the past week. Denies any prior history of heart failure, CAD or other cardiac concerns. As documented below, patient does have an extensive history of ETOH abuse, tobacco abuse with known carotid disease, HTN, Dyslipidemia and PAD. Of note, known history of right Subclavian stenosis and automatic BP cuff is on the left arm at time of examination. He denies any acute URI symptoms. He does endorse eating "[place] dinner" leftovers for the past week. He denies adding any additional salt, but the meal was not prepared by him and therefore he has no idea how much sodium is in the meal. EKG upon admission ST with PAC's, non-specific T wave abnormality. This has been cited on prior EKG's in 2019. High sensitivity Troponin I as follows: 123.0/112.1/130.4 (peak)/121. Bedside echo obtained by ER physician with concerns of severely reduced LVEF. This is to be confirmed with echocardiogram today. Upon seeing patient today, he is resting comfortably in bed. VBG's on admission demonstrated elevated CO2 and patient was placed on BiPap, Arouses easily to verbal stimuli. No acute distress and offers no cardiac complaints. Of note, patient did have a hospitalization dating back to 2019 with complaints of chest pain. EKG showed no acute ischemic changes, and echocardiogram demonstrated normal LVEF, no wall motion abnormalities and no significant valvular disese. No history of further ischemic work up at that time. PMHx: 1. HTN 2. Dyslipidemia 3. Tobacco use 4. PAD 5. Right Subclavian stenosis 6. Carotid Stenosis 7. Depression 8. Hearing loss, hearing aides Remote history of Cardiac evaluation in [address] Mtz for preoperative clearance. Allergies Allergy/AdvReac Type Severity Reaction Status Date / Time fentanyl AdvReac Severe confused Verified 03/12/23 18:32 Home Medications Medication Instructions Recorded Confirmed Type aspirin 81 mg tablet,delayed 81 mg PO DAILY ##0 03/09/15 03/12/23 History release (Angi Low Dose Aspirin) naproxen sodium 220 mg tablet 220 mg PO BID #0 tabs 07/04/15 03/12/23 History (Aleve) atorvastatin 40 mg tablet 40 mg PO DAILY 12/22/18 03/12/23 History cilostazol 100 mg tablet 100 mg PO BID 12/22/18 03/12/23 History Super Beets 3 tab PO DAILY 03/12/23 03/12/23 History Patient History Medical History Dyslipidemia Carotid artery stenosis PAD (peripheral artery disease) Depression Alcohol abuse Hypertension Chronic shoulder pain Surgical History History of vasectomy H/O arthroscopy of shoulder H/O inguinal hernia repair H/O hemorrhoidectomy Family History Mother Heart disease Hypertension Father Hypertension Social History Smoking Status: Current every day smoker Tobacco Type: Cigarettes Second Hand Exposure: No; Do You Dip or Chew Tobacco: No; Tobacco Cessation Education Requested by Patient: No Hx Alcohol Use: Yes Alcohol type: beer Alcohol type Comment: 8-10 beers/day Hx Substance Use: Yes (smokes pot nightly) Prescribed Medications: Marijuana Preferred Language: Greenlandic Communication Ability: Effective Distillation Operator Helper Required: No Beliefs That Will Affect Care: None and Worship Worship Beliefs: Spiritism Current Living Situation: Alone Other Information That Helps Us Care for You: No Feels Safe at Home: Yes Safety Concerns: Feels Safe At This Time Assistive Devices: Glasses and Hearing Aid - Bilateral Review of Systems Review of Systems: All systems reviewed & are unremarkable except as noted in HPI & below Physical Exam Constitutional: WD/WN, vitals as above well developed and well nourished Neck: normal visual inspection and trachea midline Respiratory: normal respiratory effort, lungs clear to auscultation Cardiovascular: RRR, no murmur, no edema Vessels: dorsalis pedis pulses present Extremities: no edema Skin: no rashes, warm and dry Psychiatric: A+Ox3, euthymic affect Results & Data Vital Signs (Past 12 Hours) Vital Signs Pulse Pulse Resp BP BP Pulse Ox Pulse Ox 03/13/23 07:50 101 H 23 100 03/13/23 07:11 94 H 03/13/23 03:15 97 H 20 88/67 L 100 03/13/23 02:25 102 H 18 90 03/13/23 01:02 145 H 30 H 03/13/23 00:40 123 H 29 H 93 03/13/23 00:30 158/111 H 03/13/23 00:30 110 H 20 95 03/13/23 00:20 127 H 30 H 03/13/23 00:10 121 H 28 H 85 L 03/13/23 00:01 116 H 22 97 03/13/23 00:01 163/130 H 03/13/23 00:00 119 H 28 H 96 03/12/23 23:56 111 H 03/12/23 23:50 109 H 20 98 03/12/23 23:49 100 03/12/23 23:44 21 03/12/23 23:40 109 H 24 98 03/12/23 23:30 108 H 24 95 03/12/23 23:30 154/117 H 03/12/23 23:27 159/119 H 03/12/23 23:27 112 H 21 97 03/12/23 23:20 108 H 23 97 03/12/23 23:10 110 H 20 95 03/12/23 23:00 117 H 98 03/12/23 22:55 99 03/12/23 22:52 114 H 26 H 96 03/12/23 22:30 98 03/12/23 22:20 110 H 23 100 03/12/23 22:10 94 H 18 99 03/12/23 22:01 95 H 19 97 03/12/23 22:01 117/82 03/12/23 22:00 97 H 19 03/12/23 22:00 99 H 18 117/82 99 03/12/23 21:50 114 H 98 03/12/23 21:40 105 H 20 96 03/12/23 21:30 97 H 22 95 03/12/23 21:20 97 H 22 97 03/12/23 21:10 107 H 22 98 03/12/23 21:00 104/89 03/12/23 21:00 95 H 18 95 03/12/23 20:50 96 H 17 96 03/12/23 20:40 96 H 17 95 O2 Del Method O2 Del Method O2 Flow Rate FiO2 03/13/23 07:50 40 03/13/23 07:11 03/13/23 03:15 BiPAP 03/13/23 02:25 50 03/13/23 01:02 03/13/23 00:40 Nasal Cannula 4 03/13/23 00:30 03/13/23 00:30 03/13/23 00:20 03/13/23 00:10 03/13/23 00:01 03/13/23 00:01 03/13/23 00:00 03/12/23 23:56 03/12/23 23:50 03/12/23 23:49 BiPAP 03/12/23 23:44 03/12/23 23:40 03/12/23 23:30 03/12/23 23:30 03/12/23 23:27 03/12/23 23:27 03/12/23 23:20 03/12/23 23:10 03/12/23 23:00 03/12/23 22:55 03/12/23 22:52 40 03/12/23 22:30 03/12/23 22:20 03/12/23 22:10 03/12/23 22:01 03/12/23 22:01 03/12/23 22:00 03/12/23 22:00 BiPAP 03/12/23 21:50 03/12/23 21:40 03/12/23 21:30 03/12/23 21:20 03/12/23 21:10 03/12/23 21:00 03/12/23 21:00 03/12/23 20:50 03/12/23 20:40 Laboratory Results Cardiac Enzymes 03/12/23 03/12/23 03/12/23 Range/Units 13:26 14:22 16:25 AST 30 (13-39) U/L Troponin I High Sens 123.0 H* 112.1 H* (0-20) pg/ml B-Natriuretic Peptide 2752 H (0-100) pg/ml 03/12/23 03/13/23 Range/Units 23:56 04:15 AST (13-39) U/L Troponin I High Sens 130.4 H* 121.0 H* (0-20) pg/ml B-Natriuretic Peptide (0-100) pg/ml Coagulation 03/12/23 Range/Units 14:22 B-Natriuretic Peptide 2752 H (0-100) pg/ml Lipids 03/13/23 Range/Units 04:15 Triglycerides 44 (0-150) mg/dl Cholesterol 103 (0-200) mg/dl HDL Cholesterol 48 mg/dl Cholesterol/HDL Ratio 2.1 (0-5) CBC 03/12/23 03/13/23 Range/Units 13:26 04:15 WBC 5.14 4.79 L (4.8-10.8) K/ul RBC 4.52 L 4.11 L (4.70-6.10) M/uL Hgb 15.4 13.9 L (14.0-18.0) g/dl Hct 44.9 40.5 L (42.0-52.0) % Plt Count 162 155 (130-400) K/uL Neut # (Auto) 3.28 (1.40-6.50) K/uL Lymph # (Auto) 1.14 L (1.20-3.40) K/uL [place] # (Auto) 0.56 (0.11-0.59) K/uL Eos # (Auto) 0.07 (0.00-0.50) K/uL Baso # (Auto) 0.07 (0.00-0.20) K/uL Comprehensive Metabolic Panel 03/12/23 03/13/23 Range/Units 13:26 04:15 Sodium 133 L 134 L (136-145) mmol/L Potassium 4.4 4.0 (3.5-5.1) mmol/L Chloride 100 104 (98-107) mmol/L Carbon Dioxide 23 20 L (21-32) mmol/L BUN 18 23 (6-23) mg/dl Creatinine 1.01 1.14 (0.6-1.4) mg/dl Glucose 101 H 224 H (70-99(Fasting)) mg/dl Calcium 9.3 7.9 L (8.6-10.3) mg/dl AST 30 (13-39) U/L ALT 15 (7-52) U/L Alkaline Phosphatase 50 (34-104) U/L Total Protein 7.1 (6.0-8.3) gm/dl Albumin 4.2 (3.4-5.0) gm/dl Intake and Output 03/12/23 03/13/23 03/13/23 22:59 06:59 14:59 Intake Total 1050 / 1250 100 / 1250 Output Total 900 / 900 Balance 150 / 350 100 / 350 Intake: IV 1050 / 1250 100 / 1250 Doxycycline Hyclate 100 mg In 100 / 100 Dextrose 5% Mini-B 100 ml @ 50 mls/hr IV NOW STA Rx#:[id number] Sodium Chloride 0.9% 1,000 ml @ 1000 / 1000 999 mls/hr IV .Q1H1M ONE Rx#: [id number] cefTRIAXone SODIUM 2,000 mg In 50 / 50 50 ml @ 100 mls/hr IV NOW STA Rx#:[id number] Oral 0 / 0 Output: Urine Amount (Catheter) 900 / 900 Cali/Indwelling 900 / 900 Other: Weight 68.4 kg Weight Measurement Method Built in [facility] Diagnostic Findings EKG 03/12/2023 Sinus tachycardia with Premature atrial complexes Nonspecific T wave abnormality Rate 118 BPM Echocardiogram 12/23/18 Normal LVEF 60-65% no segmental LV wall motion abnormality Grade I diastolic dysfunction No significant valvular disease (4) COPD (chronic obstructive pulmonary disease) COPD type: unspecified COPD Qualified Code(s): J44.9 - Chronic obstructive pulmonary disease, unspecified (7) Hypertension Hypertension type: unspecified Qualified Code(s): I10 - Essential (primary) hypertension
[2023-03-13] MEDS ORDERED: FUROSEMIDE INJ 20 MG/2 ML VIAL IV SCH (09:00)
[2023-03-13] MEDS: GABAPENTIN 600 MG TAB PO SCH ×3 (09:34→21:58)
[2023-03-13] MEDS: ATORVASTATIN 40 MG TAB PO SCH (09:34)
[2023-03-13] MEDS: ASPIRIN 81 MG ECTAB PO SCH (09:34)
[2023-03-13] MEDS: cilostazoL 100 MG TAB PO SCH ×2 (09:35→21:58)
--- NOTE | 2023-03-13 10:22 | XRay Report ---
XR chest 1V portable CLINICAL HISTORY: still hypoxic, CHF exacerbation. COMPARISON STUDY: Chest radiograph and chest CT March 12, 2023. FINDINGS: Lung volumes are normal. There is no pneumothorax. Cardiomegaly is again noted with small t o moderate bilateral pleural effusions. Interstitial thickening and bibasilar opacities have progress ed. IMPRESSION: Cardiomegaly. Progression of interstitial and alveolar pulmonary edema with small to mod erate bilateral pleural effusions. ACT 112: Negative or not required by law. Electronically signed by: Chu Avina M.D. 03/13/2023 10:20 AM
--- NOTE | 2023-03-13 10:49 | Electrocardiogram Report ---
Test Reason : Blood Pressure : / mmHG Vent. Rate : 118 BPM Atrial Rate : 118 BPM P-R Int : 126 ms QRS Dur : 076 ms QT Int : 362 ms P-R-T Axes : 061 018 079 degrees QTc Int : 507 ms Sinus tachycardia with Premature atrial complexes Nonspecific T wave abnormality Abnormal ECG When compared with ECG of 12-MAR-2023 13:25, Premature ventricular complexes are no longer Present Confirmed by Jarrod Akers ([id number]) on 03/13/2023 10:49:18 AM Referred By: REFERRED SELF Confirmed By:Jarrod Akers
[2023-03-13] MEDS ORDERED: FUROSEMIDE 40 MG/4 ML VIAL IV ONE (12:38)
[2023-03-13] MEDS: METOPROLOL SUCC 25MG EXT REL TAB PO SCH (13:26)
--- NOTE | 2023-03-13 15:24 | Hospitalist Progress Note ---
Date of Service March 13, 2023 Assessment & Plan (1) Acute systolic heart failure: Plan: Acute onset, possibly precipitated by underlying alcoholism, or dietary indiscretion as patient reports eating [place] dinner 5 nights in a row. Although he avidly reports not adding sodium to food, this food was made by someone else and may have been heavy in sodium. No apparent ACS clinically. Does not appear to have a pneumonia. Biofire resp panel was negative. No wheezing on exam and no cough or sputum changes present to suggest COPD exacerbation. He did undergo a CT chest with contrast which ruled out pulmonary embolus. Chest CT also revealed interstitial pulmonary edema with small to moderate bilateral pleural effusions consistent with acute heart failure exacerbation. BNP is elevated. He was placed on BiPAP for breathing support and confirmed that he is a DNR/DNI. Good response to IV diuretics overnight, cont per cardiology. Continue low-salt diet. Daily standing weights, echocardiogram, cardiac consult. (2) Smoking: Plan: Smoking cessation strongly recommended. Nicotine patch was declined by patient. (3) PAD (peripheral artery disease): Plan: Chronic stable, patient is on Pletal and has exercise-induced claudication regularly. Again smoking cessation strongly encouraged. Continue home medicat ions. (4) Elevated troponin: Plan: Doubt ACS without chest pain or EKG changes consistent with ischemia. Likely demand ischemia in setting of acute heart failure. (5) Alcohol abuse: Plan: Heavy alcohol use marijuana use and smoking. Gabapentin started to prevent withdrawal symptoms while admitted. Patient is fine with this. Ativan as needed for withdrawal symptoms. Thiamine and folate replacement ordered. (6) Hypertension: Plan: Situational elevation in blood pressure which is now at goal. GDMT per cardiology. (7) Depression: Plan: Per history, appears stable. Patient not on medications. DVT proph: Lovenox DNR/DNI Dispo-PCU I did discuss the case and plan with the driver material handler. I spent a total of 60minutes coordinating, documenting, and providing care for this patient excluding time spent in the performance of separately billed services DO Timmy [facility]dep[facility] Hospitalist Admission and Anticipated Discharge Date Admission Date: March 12, 2023 Subjective 67 yo alcoholic man admitted for progressive dyspnea 2/2 acute heart failure he is doing well, just waking up reports breathing is improved, now off BIPAP and on supplemental oxygen denies chest pain doesn't appear to have any withdrawal symptoms. tolerating PO Physical Exam Physical Exam: CONSTITUTIONAL: WNWD, vitals as above, appears comfortable. EYES: normal conjunctivae, no scleral icterus ENT: external ear and nose normal, NECK: trachea midline RESPIRATORY: clear to auscultation bilaterally, no crackles, rales or wheezes, no increased respiratory effort. CARDIOVASCULAR: regular rate and rhythm, S1 and 2 heard without murmurs, gallops or rubs, could not assess for JVD, no peripheral edema CHEST: inspection of chest was normal GASTROINTESTINAL: soft, nontender, ND, no guarding MUSCULOSKELETAL: strength 5/5 throughout, head is normocephalic and atraumatic SKIN: warm and dry NEUROLOGIC: CN 2-12 grossly intact, no sensory deficit, normal cognition, normal speech, no tremor PSYCHIATRIC: alert cooperative and oriented to person, place and time. Results & Data Results & Data Vital Signs (Past 12 Hours) Vital Signs Pulse Pulse Resp BP BP Pulse Ox O2 Del Method 03/13/23 12:31 125/84 03/13/23 12:31 83 18 95 03/13/23 12:30 81 17 96 03/13/23 12:00 132/102 H 03/13/23 12:00 90 18 94 03/13/23 11:30 103 H 28 H 91 03/13/23 11:30 124/90 03/13/23 11:00 129/96 03/13/23 11:00 94 H 18 96 03/13/23 10:30 117 H 27 H 86 L 03/13/23 10:00 116 H 34 H 94 03/13/23 09:45 Nasal Cannula 03/13/23 09:30 125/98 03/13/23 09:30 96 H 21 100 03/13/23 09:30 107 H 30 H 125/98 100 BiPAP 03/13/23 09:00 81 20 99 03/13/23 09:00 116/81 03/13/23 08:30 76 17 94 03/13/23 08:30 129/80 03/13/23 08:00 94 H 21 96 03/13/23 08:00 127/85 03/13/23 07:50 101 H 23 100 03/13/23 07:30 88 37 H 99 03/13/23 07:30 115/80 03/13/23 07:11 94 H 01/02/24 07:00 123/96 03/13/23 07:00 94 H 21 100 FiO2 03/13/23 12:31 03/13/23 12:31 03/13/23 12:30 03/13/23 12:00 03/13/23 12:00 03/13/23 11:30 03/13/23 11:30 03/13/23 11:00 03/13/23 11:00 03/13/23 10:30 03/13/23 10:00 03/13/23 09:45 03/13/23 09:30 03/13/23 09:30 03/13/23 09:30 40 03/13/23 09:00 03/13/23 09:00 03/13/23 08:30 03/13/23 08:30 03/13/23 08:00 03/13/23 08:00 03/13/23 07:50 40 03/13/23 07:30 03/13/23 07:30 03/13/23 07:11 03/13/23 07:00 03/13/23 07:00 Laboratory Results Short CBC 03/13/23 Range/Units 04:15 WBC 4.79 L (4.8-10.8) K/ul Hgb 13.9 L (14.0-18.0) g/dl Hct 40.5 L (42.0-52.0) % Plt Count 155 (130-400) K/uL BMP 03/13/23 04:15 Sodium 134 L Potassium 4.0 Chloride 104 Carbon Dioxide 20 L BUN 23 Creatinine 1.14 Glucose 224 H Calcium 7.9 L Urine 03/12/23 Range/Units 15:17 Urine Color Yellow Urine Appearance Clear (Clear) Urine pH 5.5 (4.5-7.5) Ur Specific [place] 1.018 (1.000-1.030) Urine Protein Trace H (Negative) Urine Glucose (UA) Negative (Negative) Diagnostic Findings Chest X-Ray 03/13/23 09:30 XR chest 1V portable CLINICAL HISTORY: still hypoxic, CHF exacerbation. COMPARISON STUDY: Chest radiograph and chest CT March 12, 2023. FINDINGS: Lung volumes are normal. There is no pneumothorax. Cardiomegaly is again noted with small to moderate bilateral pleural effusions. Interstitial thickening and bibasilar opacities have progressed. IMPRESSION: Cardiomegaly. Progression of interstitial and alveolar pulmonary edema with small to moderate bilateral pleural effusions. ACT 112: Negative or not required by law. Electronically signed by: Chu Avina M.D. 03/13/2023 10:20 AM Medications Administered Current Inpatient Medications Acetaminophen (Acetaminophen 325 Mg Tab) 650 mg PO Q4H PRN PRN Reason: Pain or Fever Stop: 04/11/23 20:05 Aspirin (Aspirin 81 Mg Ectab) 81 mg PO DAILY ONUR Stop: 04/12/23 08:59 Last Admin: 03/13/23 09:34 Dose: 81 mg Atorvastatin Calcium (Atorvastatin 40 Mg Tab) 40 mg PO DAILY ONUR Stop: 04/12/23 08:59 Last Admin: 03/13/23 09:34 Dose: 40 mg Cilostazol (Cilostazol 100 Mg Tab) 100 mg PO BID ONUR Stop: 04/11/23 21:14 Last Admin: 03/13/23 09:35 Dose: 100 mg Enoxaparin Sodium (Enoxaparin Inj 40 Mg/0.4 Ml Syr) 40 mg SQ Q24H ONUR Stop: 04/11/23 21:59 Last Admin: 03/12/23 23:31 Dose: 40 mg Furosemide (Furosemide 40 Mg/4 Ml Vial) 40 mg IV [id number] ONUR Stop: 04/12/23 16:59 Gabapentin (Gabapentin 600 Mg Tab) 600 mg PO Q24H ONUR Stop: 03/16/23 12:01 Gabapentin (Gabapentin 600 Mg Tab) 600 mg PO Q12H ONUR Stop: 03/15/23 12:01 Gabapentin (Gabapentin 600 Mg Tab) 600 mg PO 0600,1400,2200 ONUR Stop: 03/14/23 14:01 Thiamine HCl 100 mg/ Syringe 10 mls @ 2 mls/min IV Q24H ONUR Stop: 04/11/23 20:59 Last Admin: 03/12/23 22:15 Dose: 2 mls/min Folic Acid 1 mg/ Syringe 10 mls @ 5 mls/min IV Q24H ONUR Stop: 04/11/23 20:59 Last Admin: 03/12/23 22:15 Dose: 5 mls/min Metoprolol Succinate (Metoprolol Succ 25mg Ext Rel Tab) 12.5 mg PO QAM ONUR Stop: 04/12/23 13:14 Last Admin: 03/13/23 13:26 Dose: 12.5 mg Polyethylene Glycol (Polyethylene (Miralax) 17 Gm Pack) 17 gm PO DAILY PRN PRN Reason: Constipation Stop: 04/11/23 20:05
--- NOTE | 2023-03-13 15:50 | Electrocardiogram Report ---
Test Reason : Blood Pressure : / mmHG Vent. Rate : 096 BPM Atrial Rate : 096 BPM P-R Int : 116 ms QRS Dur : 088 ms QT Int : 406 ms P-R-T Axes : 068 028 210 degrees QTc Int : 512 ms Sinus rhythm with Premature supraventricular complexes and with frequent Premature ventricular comple xes T wave abnormality, consider inferolateral ischemia Prolonged QT Abnormal ECG When compared with ECG of 12-MAR-2023 17:13, Premature ventricular complexes are now Present T wave inversion now evident in Inferior leads T wave inversion now evident in Lateral leads Confirmed by Jarrod Akers ([id number]) on 03/13/2023 3:50:29 PM Referred By: REFERRED SELF Confirmed By:Jarrod Akers
--- NOTE | 2023-03-13 16:17 | Communication Note ---
Date of Service: March 13, 2023 Addendum consult H&P Physical examination Heart rate 84 blood pressure 129/89 equal in both arms HEENT exams normocephalic and atraumatic Neck: No carotid bruits, there is no jugular venous distention Lungs: Clear to auscultation Cardiovascular exam: Regular rate and rhythm with normal S1-S2 there is no audible murmur rub. No augmentation with Valsalva Abdomen soft nontender there is no palpable hepato-splenomegaly Extremities: No cyanosis clubbing no peripheral edema Neurologically intact
[2023-03-13] MEDS: FUROSEMIDE 40 MG/4 ML VIAL IV SCH (17:37)
[2023-03-13] MEDS: FOLIC ACID 1 MG in SYRINGE 9.8 ML IV SCH (21:58)
[2023-03-13] MEDS: THIAMINE HCL 100 MG in SYRINGE 9 ML IV SCH (21:58)
[2023-03-13] MEDS: ENOXAPARIN INJ 40 MG/0.4 ML SYR SQ SCH (21:58)
[2023-03-14 06:35] LABS: BUN Creatinine Ratio 26.5 (10-20); Calcium 8.4 mg/dl (8.6-10.3); Creatinine Clr Calc Pharmacy 47.3 ml/min; Est GFR (Non-African American) 53.5 ml/min; Magnesium 2.1 mg/dl (1.7-2.4); Potassium 3.4 mmol/L (3.5-5.1)
[2023-03-14] MEDS: ATORVASTATIN 40 MG TAB PO SCH (07:37)
[2023-03-14] MEDS: FUROSEMIDE 40 MG/4 ML VIAL IV SCH (07:37)
[2023-03-14] MEDS: ASPIRIN 81 MG ECTAB PO SCH (07:37)
[2023-03-14] MEDS: METOPROLOL SUCC 25MG EXT REL TAB PO SCH ×2 (07:37→15:25)
[2023-03-14] MEDS: cilostazoL 100 MG TAB PO SCH (07:38)
[2023-03-14] MEDS: GABAPENTIN 600 MG TAB PO SCH ×3 (07:38→23:53)
--- NOTE | 2023-03-14 12:15 | Hospitalist Progress Note ---
Date of Service March 14, 2023 Assessment & Plan (1) Acute hypoxemic respiratory failure: Plan: Patient presents with shortness of breath for 1 week Chest x-ray on admission personally reviewed; consistent with pulmonary edema. CTA chest does not show PE; consistent with pulmonary edema. Follow-up chest x-ray on Marchncasing pulmonary edema Echocardiogram shows EF of 40 to 45% with mild global hypokinesis of left ventricle. Moderate concentric LVH present. Continue Lasix 40 mg IV twice daily Started on metoprolol 12.5 mg once a day as part of the GDMT (2) Acute systolic heart failure: Plan: Patient presents with shortness of breath for 1 week Chest x-ray on admission personally reviewed; consistent with pulmonary edema. CTA chest does not show PE; consistent with pulmonary edema. Follow-up chest x-ray on Marchncasing pulmonary edema Echocardiogram shows EF of 40 to 45% with mild global hypokinesis of left ventricle. Moderate concentric LVH present. Continue Lasix 40 mg IV twice daily Started on metoprolol 12.5 mg once a day as part of the GDMT for HFrEF (3) Smoking: Plan: Discussed smoking cessation (4) PAD (peripheral artery disease): Plan: Chronic stable, currently on Pletal and has exercise-induced claudication regularly. Continue home medications. (5) Elevated troponin: Plan: Likely demand ischemia in setting of acute heart failure. Echocardiogram as above (6) Alcohol abuse: Plan: Gabapentin started to prevent withdrawal symptoms while admitted. Ativan as needed for withdrawal symptoms. (7) Hypertension: Plan: Situational elevation in blood pressure symptoms are stable. On metoprolol. (8) Depression: Plan: Per history, appears stable. Patient not on medications. DVT proph: Lovenox DNR/DNI Dispo-admitted with acute hypoxic respiratory failure with hypoxia. Currently on IV diuretics. Plan to wean off the oxygen as tolerated. Time spent evaluating patient, direct bedside care, chart review, placing or ders, interpretation of diagnostic studies, discussion with consultants, patient, and family members, as well as other required patient management activities is 50-minute Please note the above document was generated using voice recognition software. It may contain grammatical, syntax or spelling errors. Any formal questions or concerns about the content, text or information contained within the body of this dictation should be directly addressed to the provider for clarification Admission and Anticipated Discharge Date Admission Date: March 12, 2023 Subjective Patient seen and examined at bedside. He reports that he is feeling slightly better today. Shortness of breath has improved. Urine output of 2500 cc last 24 hours. Review of Systems Review of Systems: All systems reviewed & are unremarkable except as noted in Subjective Physical Exam Physical Exam: Constitutional: WD/WN, vitals as above, NAD, sitting up in bed, pleasant, conversing easily Respiratory: Bilateral basal crackles present Cardiovascular: RRR, no murmur, no edema Vessels: no JVD or carotid bruit Chest: normal inspection of chest Abdomen: Soft nontender Musculoskeletal: no cyanosis or clubbing, extremities motor strength 5/5 Skin: no rashes, warm and dry normal turgor Results & Data Results & Data Vital Signs (Past 12 Hours) Vital Signs Temp Pulse Pulse Resp BP Pulse Ox O2 Del Method 03/14/23 11:50 95 Nasal Cannula 03/14/23 10:58 37.1 C 73 20 119/87 95 Nasal Cannula 03/14/23 09:19 36.7 C 03/14/23 08:00 87 03/14/23 08:00 Nasal Cannula 03/14/23 07:54 36.2 C L 87 20 119/87 94 Nasal Cannula 03/14/23 03:04 37.4 C 82 20 130/78 95 Nasal Cannula O2 Flow Rate 03/14/23 11:50 2 03/14/23 10:58 4 03/14/23 09:19 03/14/23 08:00 03/14/23 08:00 4 03/14/23 07:54 4 03/14/23 03:04 1
--- NOTE | 2023-03-14 13:38 | Cardiology Progress Note ---
Date of Service March 14, 2023 Assessment & Plan (1) Acute respiratory failure with hypoxia: (2) Acute systolic heart failure: (3) Elevated troponin: (4) COPD (chronic obstructive pulmonary disease): (5) PAD (peripheral artery disease): (6) Dyslipidemia: (7) Hypertension: (8) Alcohol abuse: Plan Assessment: 67 year old male presenting with one week of progressively worsening shortness of breath and lower extremity edema. 1. Acute respiratory failure with hypoxia 2. Acute systolic Heart failure 3. Elevated Troponin 4. COPD 5. PAD 6. Dyslipidemia 7. HTN 8. Alcohol abuse. Plan: 1. Acute respiratory failure with hypoxia 2. Acute systolic Heart failure 3. Elevated Troponin 4. COPD: -contributing factor to his acute respiratory failure. -Continued management per primary team. -Encourage smoking cessation, although patient is not interested at this time. 5. PAD: -chronic claudication with multiple risk factors. -No acute or concerning physical exam findings. Bilateral carotid disease by prior studies as well as high-grade right subclavian calcified stenosis last imaging 2018 6. Dyslipidemia: -Continue Atorvastatin 40mg PO Daily 7. Hypertension: 8. Alcohol Abuse: -patient endorses 10 beers per day. Longstanding -Continued management per primary team with concerns of possible detox -Continue with Gabapentin regimen in acute setting as well as Thiamine and electrolyte supplementation 03/14/2023 Assessment as above. Has clinically improved with IV diuresis. No signs suggest ongoing ischemia by history Multiple cardiovascular risk factors including known peripheral vascular disease Plan: Discontinue IV furosemide after p.m. dose today Increase metoprolol succinate to 25 mg daily with dose today Supplement potassium, add ADDY inhibitor in a.m. if renal function allows Aortic duplex to assess vascular disease and procedural access Treat alcohol withdrawal symptoms Admission and Anticipated Discharge Date Admission Date: March 12, 2023 Subjective Patient seen and examined, chart, medications, telemetry reviewed. Patient has had brisk diuresis over the past 24 hours. Respiratory status improved with better oxygenation on minimal oxygen. No chest pains. No dizziness or lightheadedness. Telemetry sinus rhythm with frequent atrial ectopy, elevated heart rate at time Physical Exam Constitutional: WD/WN, vitals as above well developed and well nourished Neck: normal visual inspection and trachea midline Respiratory: normal respiratory effort, lungs clear to auscultation Cardiovascular: RRR, no murmur, no edema Vessels: dorsalis pedis pulses present Extremities: no edema Skin: no rashes, warm and dry Psychiatric: A+Ox3, euthymic affect Results & Data Vital Signs (Past 12 Hours) Vital Signs Temp Pulse Pulse Resp BP Pulse Ox O2 Del Method 03/14/23 11:50 95 Nasal Cannula 03/14/23 10:58 37.1 C 73 20 119/87 95 Nasal Cannula 03/14/23 09:19 36.7 C 03/14/23 08:00 87 03/14/23 08:00 Nasal Cannula 03/14/23 07:54 36.2 C L 87 20 119/87 94 Nasal Cannula 03/14/23 03:04 37.4 C 82 20 130/78 95 Nasal Cannula O2 Flow Rate 03/14/23 11:50 2 03/14/23 10:58 4 03/14/23 09:19 03/14/23 08:00 03/14/23 08:00 4 03/14/23 07:54 4 03/14/23 03:04 1 Laboratory Results Laboratory Results - last 24 hr 03/14/23 05:36 Sodium 138 Potassium 3.4 L Chloride 102 Carbon Dioxide 28 Anion Gap 8 BUN 36 H Creatinine 1.36 Est Cr Clr Drug Dosing 47.3 Est GFR ( Amer) 62.0 Est GFR (Non-Af Amer) 53.5 BUN/Creatinine Ratio 26.5 H Glucose 99 Calcium 8.4 L Magnesium 2.1 (4) COPD (chronic obstructive pulmonary disease) COPD type: unspecified COPD Qualified Code(s): J44.9 - Chronic obstructive pulmonary disease, unspecified (7) Hypertension Hypertension type: unspecified Qualified Code(s): I10 - Essential (primary) hypertension
[2023-03-14] MEDS ORDERED: POTASSIUM CHLORIDE CRTAB 20 MEQ TABCR PO ONE (13:49)
--- NOTE | 2023-03-14 15:33 | Ultrasound Report ---
ULTRASOUND OF THE ABDOMINAL AORTA CLINICAL HISTORY: Peripheral vascular disease. Claudication. COMPARISON STUDY: No priors. TECHNIQUE: Multiple blas scale, color Doppler, and spectral Doppler sonograms of the abdominal aorta and iliac arteries are performed. Images are reviewed in the transverse and longitudinal planes. FINDINGS: There is atherosclerotic calcification and irregularity noted throughout the abdominal aorta. The pro ximal abdominal aorta measures 2.0 x 2.0 cm (AP x transverse) and the mid abdominal aorta measures 1. 8 x 1.7 cm. There is ectasia of the distal abdominal aorta which measures 2.0 x 2.4 cm. The right com mon iliac artery measures up to 0.8 cm and the left common iliac artery measures up to 1.0 cm. Normal flow and spectral Doppler waveforms are seen within the aorta, with velocities measuring up to 63 cm /s. The iliac arteries are patent bilaterally. IMPRESSION: There is no sonographic evidence of abdominal aortic aneurysm. ACT 112: Negative or not required by law. Electronically signed by: Raghavendra Sauceda M.D. 03/14/2023 3:31 PM
[2023-03-14] MEDS: THIAMINE HCL 100 MG in SYRINGE 9 ML IV SCH (21:00)
[2023-03-14] MEDS: FOLIC ACID 1 MG in SYRINGE 9.8 ML IV SCH (21:01)
[2023-03-14] MEDS: POTASSIUM CHLORIDE CRTAB 20 MEQ TABCR PO SCH (21:01)
[2023-03-14] MEDS: ENOXAPARIN INJ 40 MG/0.4 ML SYR SQ SCH (21:01)
[2023-03-15 06:37] LABS: Hematocrit (blood only) 42.8 % (42.0-52.0); Hemoglobin 14.8 g/dl (14.0-18.0); Mean Corpuscular Hemoglobin 34.3 pg (25.0-34.0); Mean Corpuscular Hgb Conc 34.6 g/dL (32.0-36.0); Mean Corpuscular Volume 99.1 fL (80.0-100.0); Platelet Count 169 K/uL (130-400); RDW Coefficient of Variation 14.4 % (11.5-14.5); RDW Standard Deviation 52.4 fL (36.4-46.3); Red Blood Count 4.32 M/uL (4.70-6.10); White Blood Count 7.15 K/ul (4.8-10.8)
[2023-03-15 06:58] LABS: BUN Creatinine Ratio 35.9 (10-20); Calcium 8.8 mg/dl (8.6-10.3); Creatinine Clr Calc Pharmacy 62.4 ml/min; Est GFR (African American) 86.7 ml/min; Est GFR (Non-African American) 74.8 ml/min
[2023-03-15 07:01] LABS: Basophils % (auto) 1.4 %; Eosinophils # (auto) 0.15 K/uL (0.00-0.50); Eosinophils % (auto) 2.1 %; Immature Granulocytes # (auto) 0.03 K/uL (0.01-0.20); Immature Granulocytes % (auto) 0.4 %; Lymphocytes # (auto) 1.65 K/uL (1.20-3.40); Lymphocytes % (auto) 23.1 %; Monocytes # (auto) 1.04 K/uL (0.11-0.59); Monocytes % (auto) 14.5 %; Neutrophils # (auto) 4.18 K/uL (1.40-6.50); Neutrophils % (auto) 58.5 %
[2023-03-15] MEDS: ATORVASTATIN 40 MG TAB PO SCH (08:14)
[2023-03-15] MEDS: ASPIRIN 81 MG ECTAB PO SCH (08:14)
[2023-03-15] MEDS: POTASSIUM CHLORIDE CRTAB 20 MEQ TABCR PO SCH ×2 (08:14→20:27)
[2023-03-15] MEDS: METOPROLOL SUCC 25MG EXT REL TAB PO SCH (08:14)
[2023-03-15] MEDS: FUROSEMIDE 40 MG/4 ML VIAL IV SCH (08:18)
--- NOTE | 2023-03-15 10:52 | Cardiology Progress Note ---
Date of Service March 15, 2023 Assessment & Plan (1) Acute respiratory failure with hypoxia: (2) Acute systolic heart failure: (3) Elevated troponin: (4) COPD (chronic obstructive pulmonary disease): (5) PAD (peripheral artery disease): (6) Dyslipidemia: (7) Hypertension: (8) Alcohol abuse: Plan Assessment: 67 year old male presenting with one week of progressively worsening shortness of breath and lower extremity edema. 1. Acute respiratory failure with hypoxia 2. Acute systolic Heart failure 3. Elevated Troponin 4. COPD 5. PAD 6. Dyslipidemia 7. HTN 8. Alcohol abuse. Plan: 1. Acute respiratory failure with hypoxia 2. Acute systolic Heart failure 3. Elevated Troponin 4. COPD: -contributing factor to his acute respiratory failure, significant improvement in respiratory status since day of admission. -Denies any chest pain, pressure or palpitations. Some reduction in ectopy on telemetry, remains asymptomatic. - demonstrates 5kg weight loss, negative fluid balance -1723ml, euvolemic on physical exam -Discontinue IV Lasix -Continue Toprol xl as per current regimen. -Renal function improved. -Encouraged smoking cessation 5. PAD: -chronic claudication with multiple risk factors. -No acute or concerning physical exam findings. Bilateral carotid disease by prior studies as well as high-grade right subclavian calcified stenosis last imaging 2018 6. Dyslipidemia: -Continue Atorvastatin 40mg PO Daily 7. Hypertension: -Well controlled. - Continue Toprol xl. -Would like to consider to add low dose Lisinopril as part of GDMT, morning BP low 103/87 8. Alcohol Abuse: -patient endorses 10 beers per day. Longstanding -Continued management per primary team with concerns of possible detox -Continue with Gabapentin regimen in acute setting as well as Thiamine and electrolyte supplementation Case has been discussed with Dr. Calix. Further recommendations regarding plan of care as per his assessment. I spent a total of 30 minutes on the date of service in preparation, delivery, documentation of the care provided to the patient excluding any time spent in the performance of separately billed services. ALBERT Anthony [facility] Cardiology [facility] Admission and Anticipated Discharge Date Admission Date: March 12, 2023 Supervising Physician Co-Signing Physician Notes Patient was seen and personally examined. Currently denies any chest pains. Respiratory distress and dyspnea markedly improved Telemetry reveals improved heart rate and ectopy Echocardiogram with mild to moderate diffuse LV dysfunction EF 40-45% without segmental abnormality Issues and plans as above. Will optimize medical therapies. Add low-dose ADDY inhibitor to regimen, repeat BMP in a.m. given diffuse vascular disease Increase metoprolol succinate 25 mg a.m. 12.5 mg p.m. Will need to assess oxygenation on room air Daily diuretic dose to be begun prior to discharge Discussed tobacco cessation and alcohol moderation Outpatient stress nuclear study CHF instructions Care discussed personally with hospitalist Subjective 03/15/2022: Patient seen and examined in follow up. Offers no cardiac questions or concerns. Patient was examined, labs, medications, testing and telemetry reviewed. Patient is resting comfortably sitting up in bed. Denies any chest pain, pressure, palpitations, and no shortness of breath. Reports no edema. Telemetry shows SR rates in the 90's. Patient does exhibit frequent PVC's, and one 10 beat single run of VT at 0947. Asymptomatic. This is less in comparison to yesterday with the addition/titration of beta chaz therapy. Review of Systems Review of Systems: All systems reviewed & are unremarkable except as noted in HPI & below Physical Exam Constitutional: WD/WN, vitals as above no acute distress Neck: normal visual inspection and trachea midline Respiratory: normal respiratory effort, lungs clear to auscultation Cardiovascular: RRR, no murmur, no edema Vessels: dorsalis pedis pulses present; no JVD Skin: no rashes, warm and dry Psychiatric: A+Ox3, euthymic affect Results & Data Vital Signs (Past 12 Hours) Vital Signs Temp Pulse Pulse Resp BP Pulse Ox O2 Del Method 03/15/23 08:00 64 03/15/23 08:00 Nasal Cannula 03/15/23 07:34 37.0 C 75 18 103/87 93 Nasal Cannula 03/15/23 03:27 36.7 C 87 18 138/72 94 Room Air 03/14/23 23:29 83 O2 Flow Rate 03/15/23 08:00 03/15/23 08:00 2 03/15/23 07:34 2 03/15/23 03:27 03/14/23 23:29 Laboratory Results CBC 03/15/23 Range/Units 06:17 WBC 7.15 (4.8-10.8) K/ul RBC 4.32 L (4.70-6.10) M/uL Hgb 14.8 (14.0-18.0) g/dl Hct 42.8 (42.0-52.0) % Plt Count 169 (130-400) K/uL Neut # (Auto) 4.18 (1.40-6.50) K/uL Lymph # (Auto) 1.65 (1.20-3.40) K/uL Wilkes # (Auto) 1.04 H (0.11-0.59) K/uL Eos # (Auto) 0.15 (0.00-0.50) K/uL Baso # (Auto) 0.10 (0.00-0.20) K/uL Comprehensive Metabolic Panel 03/15/23 Range/Units 06:17 Sodium 137 (136-145) mmol/L Potassium 4.0 (3.5-5.1) mmol/L Chloride 103 (98-107) mmol/L Carbon Dioxide 27 (21-32) mmol/L BUN 37 H (6-23) mg/dl Creatinine 1.03 D (0.6-1.4) mg/dl Glucose 92 (70-99(Fasting)) mg/dl Calcium 8.8 (8.6-10.3) mg/dl Intake and Output 03/14/23 03/15/23 03/15/23 22:59 06:59 14:59 Intake Total 360 / 802 100 / 802 Output Total 275 / 2525 600 / 2525 Balance 85 / -1723 -500 / -1723 Intake: Oral 360 / 802 100 / 802 Output: Urine 275 / 475 200 / 475 Other 200 / 200 Urine Amount (Catheter) 200 / 1850 Cali/Indwelling 200 / 1850 Other: # Unmeasured Voids 3 Weight 63.4 kg Weight Measurement Method Built in [facility] Diagnostic Findings Echocardiogram 03/13/2023 LV normal size moderate concentric LVH Mild global hypokinesis of left ventricle. LVEF 40-45% mild to moderate MR Trace TR No suggestion of pulmonary HTN (4) COPD (chronic obstructive pulmonary disease) COPD type: unspecified COPD Qualified Code(s): J44.9 - Chronic obstructive pulmonary disease, unspecified (7) Hypertension Hypertension type: unspecified Qualified Code(s): I10 - Essential (primary) hypertension
[2023-03-15] MEDS: GABAPENTIN 600 MG TAB PO SCH (11:36)
--- NOTE | 2023-03-15 12:35 | Hospitalist Progress Note ---
Date of Service March 15, 2023 Assessment & Plan (1) Acute hypoxemic respiratory failure: (2) Acute systolic heart failure: Plan: Patient presents with shortness of breath for 1 week Chest x-ray on admission personally reviewed; consistent with pulmonary edema. CTA chest does not show PE; consistent with pulmonary edema. Follow-up chest x-ray on March 2increasing pulmonary edema Echocardiogram shows EF of 40 to 45% with mild global hypokinesis of left ventricle. Moderate concentric LVH present. Patient was diuresed with Lasix 40 mg twice daily. Cardiology recommends to stop diuretics. Aortic duplex ordered to assess vascular disease and procedural access as per cardiology. On metoprolol 25 mg once daily. (3) Smoking: Plan: Discussed smoking cessation (4) PAD (peripheral artery disease): Plan: Chronic stable, currently on Pletal and has exercise-induced claudication regularly. Continue home medications. (5) Elevated troponin: Plan: Likely demand ischemia in setting of acute heart failure. Echocardiogram as above (6) Alcohol abuse: Plan: Gabapentin started to prevent withdrawal symptoms while admitted. Ativan as needed for withdrawal symptoms. (7) Hypertension: Plan: Situational elevation in blood pressure symptoms are stable. On metoprolol. (8) Depression: Plan: Per history, appears stable. Patient not on medications. DVT proph: Lovenox DNR/DNI Dispo-admitted with acute hypoxic respiratory failure with hypoxia. Plan to wean off the oxygen as tolerated. Aortic duplex ordered as per recommendation by cardiology. Time spent evaluating patient, direct bedside care, chart review, placing orders, interpretation of diagnostic studies, discussion with consultants, patient, and family members, as well as other required patient management activities is 50-minute Please note the above document was generated using voice recognition software. It may contain grammatical, syntax or spelling errors. Any formal questions or concerns about the content, text or information contained within the body of this dictation should be directly addressed to the provider for clarification Admission and Anticipated Discharge Date Admission Date: March 12, 2023 Subjective He is lying in the bed comfortably; not in distress. He reports that his breathing is much better. Review of Systems Review of Systems: All systems reviewed & are unremarkable except as noted in Subjective Physical Exam Physical Exam: Constitutional: WD/WN, vitals as above, NAD, sitting up in bed, pleasant, conversing easily Respiratory: Bilateral basal crackles present Cardiovascular: RRR, no murmur, no edema Vessels: no JVD or carotid bruit Chest: normal inspection of chest Abdomen: Soft nontender Musculoskeletal: no cyanosis or clubbing, extremities motor strength 5/5 Skin: no rashes, warm and dry normal turgor Results & Data Results & Data Vital Signs (Past 12 Hours) Vital Signs Temp Pulse Pulse Resp BP Pulse Ox O2 Del Method 03/15/23 11:51 37.0 C 78 18 98/75 L 94 Nasal Cannula 03/15/23 08:00 64 03/15/23 08:00 Nasal Cannula 03/15/23 07:34 37.0 C 75 18 103/87 93 Nasal Cannula 03/15/23 03:27 36.7 C 87 18 138/72 94 Room Air O2 Flow Rate 03/15/23 11:51 2 03/15/23 08:00 03/15/23 08:00 2 03/15/23 07:34 2 03/15/23 03:27
[2023-03-15] MEDS: lisinopril 2.5 MG TAB PO SCH (13:02)
--- NOTE | 2023-03-15 13:42 | Electrocardiogram Report ---
Test Reason : Blood Pressure : / mmHG Vent. Rate : 112 BPM Atrial Rate : 159 BPM P-R Int : 112 ms QRS Dur : 080 ms QT Int : 356 ms P-R-T Axes : 071 019 198 degrees QTc Int : 485 ms Poor data quality, interpretation may be adversely affected Normal sinus rhythm with frequent Premature ventricular complexes Abnormal ECG When compared with ECG of 13-MAR-2023 12:10, No significant change Confirmed by Jarrod Akers ([id number]) on 03/15/2023 1:42:31 PM Referred By: REFERRED SELF Confirmed By:Jarrod Akers
--- NOTE | 2023-03-15 13:46 | Electrocardiogram Report ---
Test Reason : Blood Pressure : / mmHG Vent. Rate : 096 BPM Atrial Rate : 096 BPM P-R Int : 122 ms QRS Dur : 086 ms QT Int : 388 ms P-R-T Axes : 060 -08 196 degrees QTc Int : 490 ms Sinus rhythm with Premature supraventricular complexes and with frequent , and consecutive Premature ventricular complexes T wave abnormality, consider inferior ischemia T wave abnormality, consider anterolateral ischemia Prolonged QT Abnormal ECG When compared with ECG of 13-MAR-2023 12:10, No significant change was found Confirmed by Jarrod Akers ([id number]) on 03/15/2023 1:45:43 PM Referred By: REFERRED SELF Confirmed By:Jarrod Akers
--- NOTE | 2023-03-15 13:46 | Electrocardiogram Report ---
Test Reason : Blood Pressure : / mmHG Vent. Rate : 094 BPM Atrial Rate : 094 BPM P-R Int : 128 ms QRS Dur : 068 ms QT Int : 394 ms P-R-T Axes : 072 000 -65 degrees QTc Int : 492 ms Poor data quality, interpretation may be adversely affected Sinus rhythm with Premature ventricular complexes or Fusion complexes T wave abnormality, consider anterior ischemia Prolonged QT Abnormal ECG When compared with ECG of 14-MAR-2023 05:04, (unconfirmed) Fusion complexes are now Present Premature supraventricular complexes are no longer Present T wave inversion less evident in Lateral leads Confirmed by Jarrod Akers ([id number]) on 03/15/2023 1:46:22 PM Referred By: REFERRED SELF Confirmed By:Jarrod Akers
--- NOTE | 2023-03-15 14:58 | Electrocardiogram Report ---
Test Reason : Blood Pressure : / mmHG Vent. Rate : 089 BPM Atrial Rate : 089 BPM P-R Int : 124 ms QRS Dur : 082 ms QT Int : 400 ms P-R-T Axes : 075 010 051 degrees QTc Int : 486 ms Sinus rhythm with Premature atrial complexes with Aberrant conduction Possible Left atrial enlargement Prolonged QT Abnormal ECG When compared with ECG of 14-MAR-2023 12:25, Premature ventricular complexes are no longer Present Aberrant conduction is now Present Nonspecific T wave abnormality has replaced inverted T waves in Inferior leads T wave inversion no longer evident in Anterior leads Confirmed by Jarrod Akers ([id number]) on 03/15/2023 2:57:59 PM Referred By: REFERRED SELF Confirmed By:Jarrod Akers
[2023-03-15] MEDS: FOLIC ACID 1 MG in SYRINGE 9.8 ML IV SCH (20:29)
[2023-03-15] MEDS: ENOXAPARIN INJ 40 MG/0.4 ML SYR SQ SCH (20:29)
[2023-03-15] MEDS: THIAMINE HCL 100 MG in SYRINGE 9 ML IV SCH (20:29)
[2023-03-15] MEDS ORDERED: METOPROLOL SUCC 25MG EXT REL TAB PO SCH (21:00)
[2023-03-16 06:14] LABS: Basophils # (auto) 0.09 K/uL (0.00-0.20); Basophils % (auto) 1.2 %; Eosinophils % (auto) 1.4 %; Hematocrit (blood only) 43.7 % (42.0-52.0); Hemoglobin 15.1 g/dl (14.0-18.0); Immature Granulocytes # (auto) 0.02 K/uL (0.01-0.20); Immature Granulocytes % (auto) 0.3 %; Lymphocytes % (auto) 20.4 %; Mean Corpuscular Hemoglobin 34.4 pg (25.0-34.0); Mean Corpuscular Hgb Conc 34.6 g/dL (32.0-36.0); Mean Corpuscular Volume 99.5 fL (80.0-100.0); Monocytes # (auto) 0.83 K/uL (0.11-0.59); Monocytes % (auto) 11.3 %; Neutrophils # (auto) 4.83 K/uL (1.40-6.50); Neutrophils % (auto) 65.4 %; Platelet Count 170 K/uL (130-400); RDW Coefficient of Variation 14.4 % (11.5-14.5); RDW Standard Deviation 53.3 fL (36.4-46.3); Red Blood Count 4.39 M/uL (4.70-6.10); White Blood Count 7.37 K/ul (4.8-10.8)
[2023-03-16 06:45] LABS: BUN Creatinine Ratio 30.9 (10-20); Calcium 9.1 mg/dl (8.6-10.3); Creatinine Clr Calc Pharmacy 59.9 ml/min; Est GFR (African American) 80.1 ml/min; Est GFR (Non-African American) 69.1 ml/min; Potassium 4.3 mmol/L (3.5-5.1)
[2023-03-16] MEDS: lisinopril 2.5 MG TAB PO SCH (07:41)
[2023-03-16] MEDS: POTASSIUM CHLORIDE CRTAB 20 MEQ TABCR PO SCH (07:41)
[2023-03-16] MEDS: ATORVASTATIN 40 MG TAB PO SCH (07:41)
[2023-03-16] MEDS: ASPIRIN 81 MG ECTAB PO SCH (07:41)
[2023-03-16] MEDS: METOPROLOL SUCC 25MG EXT REL TAB PO SCH (07:41)
--- NOTE | 2023-03-16 11:45 | Discharge Summary ---
Date of Service March 16, 2023 Admission HPI Per Admitting Provider 67 yo M with acute shortness of breath in the last 24 hours and progressive shortness of breath over the last week. He denies any chest pain. Reports lower leg pain without swelling for the past week. Has known history of PAD on Pletal. He also reports taking persistent naproxen to 20 mg twice daily since 2018. His exercise tolerance has gone down. Denies any significant cough fevers or chills. Patient is a smoker and heavy drinker. He is amenable to taking gabapentin to prevent withdrawal while admitted. He declines a nicotine patch. He is on super beet supplementation. Per ER doctor who did a bedside ultrasound, it appears the EF is reduced. Cali catheter and Lasix as well as Nitropaste was placed in the ER. Patient was hypertensive with a blood pressure of 151/125. He also smokes marijuana each night. Reports insomnia in the last few nights secondary to pain in his legs and difficulty breathing Admission Exam Per Admitting Provider CONSTITUTIONAL: WNWD, vitals as above, on BIPAP, NAD, cannot lay supine EYES: normal conjunctivae, no scleral icterus ENT: external ear and nose normal, NECK: trachea midline RESPIRATORY: clear to auscultation bilaterally, no crackles, rales or wheezes, increased respiratory effort with minimal exertion. CARDIOVASCULAR: regular rate and rhythm, S1 and 2 heard without murmurs, gallops or rubs, + JVD, no peripheral edema CHEST: inspection of chest was normal GASTROINTESTINAL: soft, nontender, ND, no guarding MUSCULOSKELETAL: strength 5/5 throughout, head is normocephalic and atraumatic SKIN: warm and dry NEUROLOGIC: CN 2-12 grossly intact, no sensory deficit, normal cognition, normal speech, no tremor PSYCHIATRIC: alert cooperative and oriented to person, place and time. Principal Diagnosis (1) Acute hypoxemic respiratory failure: (2) Acute systolic heart failure: Discharge Exam Constitutional: WD/WN, vitals as above, NAD, sitting up in bed, pleasant, conversing easily Respiratory: Bilateral clear breath sound Cardiovascular: RRR, no murmur, no edema Vessels: no JVD or carotid bruit Chest: normal inspection of chest Abdomen: Soft nontender Musculoskeletal: no cyanosis or clubbing, extremities motor strength 5/5 Skin: no rashes, warm and dry normal turgor Discharge Data Allergies Allergy/AdvReac Type Severity Reaction Status Date / Time fentanyl AdvReac Severe confused Verified 03/12/23 18:32 Consultations 03/12/23 17:27 ED Decision to Admit Stat 03/12/23 20:06 Consult Cardiology Routine Procedures Performed Operation Date: 03/14/23 12:30 <No data on this case meets the specified criteria> Ordered Studies 03/12/23 14:47 CT angio chest PE protocol Stat 03/14/23 07:06 CL Cath Imgs for PACS use only Routine 03/14/23 13:57 US aorta duplex Routine Hospital Course (1) Acute hypoxemic respiratory failure: (2) Acute systolic heart failure: (3) Smoking: (4) PAD (peripheral artery disease): (5) Elevated troponin: (6) Alcohol abuse: (7) Hypertension: (8) Depression: Patient presents with shortness of breath for 1 week Chest x-ray on admission personally reviewed; consistent with pulmonary edema. CTA chest does not show PE; consistent with pulmonary edema. Echocardiogram shows EF of 40 to 45% with mild global hypokinesis of left ventricle. Moderate concentric LVH present. During the hospitalization patient was diuresed with IV Lasix 40 mg twice daily Patient oxygen requirement improved throughout the hospitalization and he was in room air at discharge. He was also started on beta-chaz, ADDY inhibitor and diuretics. Patient to follow-up with cardiology for a stress test as outpatient. Patient will also follow-up with PCP. Please note the above document was generated using voice recognition software. It may contain grammatical, syntax or spelling errors. Any formal questions or concerns about the content, text or information contained within the body of this dictation should be directly addressed to the provider for clarification Total Time Total Time Spent Total Time Spent (In Minutes): 45 Total Time Includes: Examination of the Patient, Discharge Planning, Medication Reconciliation, Communication With Other Providers and Other Discharge Plan Discharge Items Patient Disposition: Hospice - Home Reason For Visit: ACUTE RESPIRATORY FAILURE, ACUTE SYSTOLIC HEART FA Discharge Diagnosis: Acute hypoxic respite failure Acute systolic heart failure Activity: Resume your previous activity Non-emergency contact: Primary Care Provider Call non-emergency contact if: you have any medication questions and your symptoms worsen Follow-up/Referrals: Kathy Leger PA-C [Outside Practitioners] - (Date & Time 03/21/2023 10:20 AM Provider Kathy Leger PA-C Department [facility] ) PCP,NO [Primary Care Provider] - Diet: Regular Addtl Attending Provider Instructions: You were admitted to the hospital with shortness of breath. You were found to h ave reduced heart function. Your were evaluated by cardiology during the hospitalization. They recommend following medication changes: 1) stop taking cilostazol. 2) start taking metoprolol 25 mg in the morning and 12.5 mg in the evening 3) start taking lisinopril 2.5 mg once a day 4) start taking Lasix 20 mg twice a week(on Mondays and ) An appointment is set up with your primary care doctor. Please obtain BMP during the visit. You will receive a call from cardiology office for follow-up with stress test. Please measure your weight daily on the weighing scale. Please discuss with your primary care doctor if your weight has gone up by 3 to 5 pounds and you noticed that your feet are swelling up. You may need to increase the dose of Lasix. Pending Studies at Discharge: No Stand-Alone Forms: My [facility] Medications and DC Order Prescriptions: New metoprolol succinate 25 mg Tablet Extended Release 24 Hr 25 mg PO QAM Qty: 60 0RF lisinopril 2.5 mg Tablet 2.5 mg PO QAM Qty: 30 0RF furosemide [Lasix] 20 mg tablet 20 mg PO 2XWK Qty: 60 0RF Rx Instructions: On Mondays and metoprolol succinate 25 mg Tablet Extended Release 24 Hr 12.5 mg PO QPM Qty: 30 0RF Continued aspirin [Angi Low Dose Aspirin] 81 mg Tablet,Delayed Release (Dr/Ec) 81 mg PO DAILY Qty: 0 atorvastatin 40 mg tablet 40 mg PO DAILY Super Beets 3 tab PO DAILY Discontinued naproxen sodium [Aleve] 220 mg Tablet 220 mg PO BID Qty: 0 cilostazol 100 mg tablet 100 mg PO BID Discharge Orders: Discharge Order (Routine); Ordered 03/16/23 Ordered By: Cuba Neal Admission Data Admit Date/Time: 03/12/23 17:49 Attending Provider: Cuba Neal Admit Provider: Isabelle Elizabeth Primary Care Provider: PCP,NO Other Providers: Isabelle Elizabeth; Chris Calix
[2023-03-16] MEDS ORDERED: GABAPENTIN 600 MG TAB PO SCH (12:00)
--- NOTE | 2023-03-16 12:22 | Cardiology Progress Note ---
Date of Service March 16, 2023 Assessment & Plan (1) Acute respiratory failure with hypoxia: (2) Acute systolic heart failure: (3) Elevated troponin: (4) COPD (chronic obstructive pulmonary disease): (5) PAD (peripheral artery disease): (6) Dyslipidemia: (7) Hypertension: (8) Alcohol abuse: Plan Assessment: 67 year old male presenting with one week of progressively worsening shortness of breath and lower extremity edema. 1. Acute respiratory failure with hypoxia 2. Acute systolic Heart failure 3. Elevated Troponin 4. COPD 5. PAD 6. Dyslipidemia 7. HTN 8. Alcohol abuse. Plan: 1. Acute respiratory failure with hypoxia 2. Acute systolic Heart failure 3. Elevated Troponin 4. COPD: -contributing factor to his acute respiratory failure, significant improvement in respiratory status since day of admission. -Denies any chest pain, pressure or palpitations. Some reduction in ectopy on telemetry, remains asymptomatic. - demonstrates 5kg weight loss, negative fluid balance -1723ml, euvolemic on physical exam -Discontinue IV Lasix -Continue Toprol xl as per current regimen. -Renal function improved. -Encouraged smoking cessation 5. PAD: -chronic claudication with multiple risk factors. -No acute or concerning physical exam findings. Bilateral carotid disease by prior studies as well as high-grade right subclavian calcified stenosis last imaging 2018 6. Dyslipidemia: -Continue Atorvastatin 40mg PO Daily 7. Hypertension: -Well controlled. - Continue Toprol xl. Tolerating low-dose lisinopril 2.5 mg/day 8. Alcohol Abuse: -patient endorses 10 beers per day. Longstanding -Continued management per primary team with concerns of possible detox -Continue with Gabapentin regimen in acute setting as well as Thiamine and electrolyte supplementation 03/16/2023 Impression: Acute respiratory failure secondary to systolic heart failure with mixed inciting causes Continues to clinically improved. Plan discussed with patient in detail Patient on optimal medical regimen We will continue current dosing metoprolol succinate, lisinopril 2.5 mg/day, aspirin, atorvastatin Discharge on furosemide 20 mg twice per week with CHF instructions BMP 1 week Will arrange close clinical follow-up with plan stress nuclear imaging post hos pital discharge. Strongly urged tobacco cessation and alcohol moderation Discussed ischemic heart disease not excluded and strongly urged reporting any change in symptom Admission and Anticipated Discharge Date Admission Date: March 12, 2023 Subjective Patient was seen and examined, chart, medications, telemetry reviewed. No arrhythmias No chest pains Pulmonary status much improved oxygenating on room air Tolerating current medications Review of Systems Review of Systems: All systems reviewed & are unremarkable except as noted in Subjective Physical Exam Constitutional: + thin; no acute distress Eyes: PERRL, conjunctivae normal, anicteric sclerae ENMT: external ear and nose normal, oropharynx normal Neck: trachea midline, no thyromegaly Respiratory: normal respiratory effort, lungs clear to auscultation Cardiovascular: Rate/Rhythm: regular rate and regular rhythm Heart Sounds: normal S1 and normal S2 Gastrointestinal (Abdomen): normal bowel sounds, soft, nontender, no hepatosplenomegaly Musculoskeletal: no cyanosis or clubbing, extremities motor strength 5/5 Results & Data Vital Signs (Past 12 Hours) Vital Signs Temp Pulse Pulse Pulse Pulse Pulse Resp 03/16/23 11:19 36.4 C L 76 18 03/16/23 10:20 100 H 77 79 03/16/23 08:00 82 03/16/23 08:00 03/16/23 07:42 03/16/23 07:14 36.4 C L 81 18 03/16/23 03:00 36.4 C L 84 18 Resp Resp Resp BP BP Pulse Ox Pulse Ox 03/16/23 11:19 108/78 96 03/16/23 10:20 16 16 16 93 03/16/23 08:00 03/16/23 08:00 03/16/23 07:42 123/92 03/16/23 07:14 94/76 L 93 03/16/23 03:00 107/77 98 Pulse Ox Pulse Ox O2 Del Method 03/16/23 11:19 Room Air 03/16/23 10:20 95 96 03/16/23 08:00 03/16/23 08:00 Room Air 03/16/23 07:42 03/16/23 07:14 Room Air 03/16/23 03:00 Nasal Cannula Laboratory Results Laboratory Results - last 24 hr 03/16/23 05:30 WBC 7.37 RBC 4.39 L Hgb 15.1 Hct 43.7 MCV 99.5 MCH 34.4 H MCHC 34.6 RDW Std Deviation 53.3 H RDW Coeff of Cecilia 14.4 Plt Count 170 MPV 10.0 Immature Gran % (Auto) 0.3 Neut % (Auto) 65.4 Lymph % (Auto) 20.4 [place] % (Auto) 11.3 Eos % (Auto) 1.4 Baso % (Auto) 1.2 Neut # (Auto) 4.83 Lymph # (Auto) 1.50 [place] # (Auto) 0.83 H Eos # (Auto) 0.10 Baso # (Auto) 0.09 Immature Gran # (Auto) 0.02 Sodium 137 Potassium 4.3 Chloride 106 Carbon Dioxide 24 Anion Gap 7 BUN 34 H Creatinine 1.10 Est Cr Clr Drug Dosing 59.9 Est GFR ( Amer) 80.1 Est GFR (Non-Af Amer) 69.1 BUN/Creatinine Ratio 30.9 H Glucose 93 Calcium 9.1 (4) COPD (chronic obstructive pulmonary disease) COPD type: unspecified COPD Qualified Code(s): J44.9 - Chronic obstructive pulmonary disease, unspecified (7) Hypertension Hypertension type: unspecified Qualified Code(s): I10 - Essential (primary) hypertension
== END 2023-03-16 17:55 | disposition home or self-care (01) | DRG 291 ==
LOC: ED 12:48 → SUATTDRO 17:49 → EDINP 17:49 → 2E 20:06